=== PATIENT | female | born 1950 | race Caucasian/White ===

== ENCOUNTER 2017-07-20 05:23 | Inpatient (IN) ==
--- NOTE | 2017-07-20 05:47 | Emergency Department Note ---
Disposition Clinical Impression: Generalized weakness Fall Qualifiers: Encounter type: initial encounter Qualified Code(s): W19.XXXA - Unspecified fall, initial encounter Disposition: Still a Patient Condition: Fair Referrals: Gregory Wynne MD [Primary Care Provider] - General Adult HPI - General Stated complaint: fall/failure to thrive Time Seen by Provider: 07/20/17 05:41 Source: patient, family, EMS Mode of arrival: EMS Limitations: no limitations Nursing Notes Reviewed: Yes Vital Signs Reviewed: Yes - History of Present Illness HPI Narrative: 67-year-old female morbidly obese, hypertension, diabetes presents to the emergency department via EMS for generalized weakness. This evening patient with assistance of her was able to get up from bed and walked to her bedside commode roughly 4 feet away. When she attempted to get up she felt to week. Require the help of her and her daughter but was unable to get up. EMS was called for assistance. Attempting to transfer her to the EMS cot patient did fall lady on her knees. She is complaining of right knee pain. She also has a left shoulder pain they were helping to lift her up. She has a history of a left total knee replacement. Patient had a similar episode last night but was finally able to get up. Also of note she has had multiple episodes where they have had to called her neighbor to come help her get up for her wheelchair to a bed. Patient gets home health aide Monday and Monday. Family is requesting for assistance. Family is open to retirement facility. Patient has no other complaints such as headache, fever, illness, chest pain or shortness of breath. She did not striker had or have any neck pain. No loss of consciousness. - Related Data Home Medications Medication Instructions Recorded Confirmed Amitriptyline HCl 75 mg PO HS 10/07/16 10/07/16 Docusate [Colace] 100 mg PO DAILY 10/07/16 10/07/16 Furosemide [Lasix] 80 mg PO DAILY 10/07/16 10/07/16 Gabapentin [Neurontin] 800 mg PO TID 10/07/16 10/07/16 Glucosamine/D3/Boswellia Megan 1 each PO BID 10/07/16 10/07/16 [Osteo Bi-Flex Tablet] Insulin LISPRO [Humalog] 100 unit SQ AD 10/07/16 10/07/16 Levothyroxine Sodium [Synthroid] 300 mcg PO DAILY 10/07/16 10/07/16 Lisinopril [Zestril] 20 mg PO DAILY 10/07/16 10/07/16 Loratadine [Claritin] 10 mg PO DAILY 10/07/16 10/07/16 Mometasone Furoate [Elocon] 15 gm TP DAILY 10/07/16 10/07/16 Nystatin POWDER [Nystop] 1 appl TP BID 10/07/16 10/07/16 OxyCODONE/APAP 10/325 [Percocet 1 each PO Q6HR PRN 10/07/16 10/07/16 10/325 MG] Pravastatin Sodium [Pravachol] 40 mg PO HS 10/07/16 10/07/16 Sertraline [Zoloft] 100 mg PO BID 10/07/16 10/07/16 Spironolactone [Aldactone] 25 mg PO DAILY 10/07/16 10/07/16 Sucralfate [Carafate] 1 gm PO 0730,1630 10/07/16 10/07/16 Vitamin D3/Folic Acid [Folixapure 5,000 unit PO DAILY 10/07/16 10/07/16 Tablet] Allergies Allergy/AdvReac Type Severity Reaction Status Date / Time adhesive tape AdvReac Rash Verified 10/07/16 14:10 atropine AdvReac Rash Verified 10/07/16 14:10 bacitracin AdvReac Rash Verified 10/07/16 14:10 benazepril AdvReac Rash Verified 10/07/16 14:10 diphenhydramine AdvReac Rash Verified 10/07/16 14:10 [From Benadryl] Erythromycin Base AdvReac Rash Verified 10/07/16 14:10 hydrogen peroxide AdvReac Rash Verified 10/07/16 14:10 Hyoscyamine AdvReac Rash Verified 10/07/16 14:10 Macrolide Antibiotics AdvReac Rash Verified 10/07/16 14:10 Metaxalone AdvReac Rash Verified 10/07/16 14:10 mold AdvReac Rash Verified 10/07/16 14:10 phenobarbital AdvReac Rash Verified 10/07/16 14:10 scopolamine AdvReac Rash Verified 10/07/16 14:10 All systems ED: reviewed and negative except as stated. Review of Systems: As Per HPI Constitutional: Reports: weakness. Denies: fever, chills ENT ED: Denies: congestion Cardiovascular: Denies: chest pain Respiratory: Denies: cough, dyspnea Gastrointestinal: Denies: abdominal pain, nausea, vomiting Musculoskeletal: Reports: arthralgia Integumentary: Denies: rash, abrasion Neurological: Denies: headache Past Medical History - Past Medical History Attestation: Yes The following information was validated with the patient. 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 - Social History Smoking Status: Former smoker Smokeless Tobacco Status: No Alcohol use: Reports: rarely Drug use: Reports: none Physical Exam - General Limitations: no limitations General appearance: alert, in no apparent distress, obese (Morbidly) - Head Head exam: atraumatic, normocephalic, normal inspection - Eye Eye exam: Present: normal appearance, PERRL, EOMI - ENT ENT exam: normal exam, normal oropharynx, mucous membranes moist - Expanded ENT Exam External ear exam: Present: normal external inspection Mouth exam: Present: normal external inspection Teeth exam: Present: other (Poor dentition, absent front lower teeth) - Neck Neck exam: Present: normal inspection, full ROM, trachea midline. Absent: tenderness - Expanded Neck Exam Neck exam focused ED: Absent: midline tenderness - Chest Chest inspection: Present: normal inspection, symmetric chest wall rise - Respiratory Respiratory exam: Present: normal lung sounds bilaterally. Absent: respiratory distress, wheezes - Cardiovascular Cardiovascular exam: Present: regular rate, normal rhythm, normal heart sounds - Abdominal Exam Abdominal exam: Present: soft (Obese), Non-Tender. Absent: tenderness, distention, guarding, rebound, rigidity - Expanded Upper Extremity Exam Shoulder exam: Present: normal inspection, full ROM, tenderness (Left shoulder) . Absent: swelling, crepitus, dislocation Arm exam: Present: normal inspection, full ROM Elbow exam: Present: normal inspection, full ROM Forearm/Wrist exam: Present: normal inspection, full ROM Hand exam: Present: normal inspection, full ROM - Expanded Lower Extremity Exam Knee exam: Present: tenderness (Right knee), knee extension intact, other (Left knee scar). Absent: swelling, abrasion, deformity, crepitus, dislocation - Neurological Exam Neurological exam: Present: alert, oriented X3 - Psychiatric Psychiatric exam: Present: normal affect, normal mood - Skin Skin exam: Present: warm, dry, intact, normal color. Absent: rash, cyanosis, diaphoresis Course Course Narrative: Patient is in no acute distress. She has some pain with active range of motion to her right knee. She has underlying arthritis and is awaiting replacement. She has no specific complaints. She will likely require admission for possible placement as well as a social consult. Labs are pending. Images have been taken. Patient had a straight catheterization for urinalysis. Those results are pending. Patient will be signed out to daytime physicians Dr. Bentley and Dr. Wen for further management and final disposition. Vital Signs Temperature 98.3 F 07/20/17 05:47 Pulse Rate 109 07/20/17 05:47 Respiratory Rate 18 07/20/17 05:47 Blood Pressure 111/105 07/20/17 05:47 O2 Sat by Pulse Oximetry 91 07/20/17 05:47 Temperature 98.3 F 07/20/17 05:47 Pulse Rate 109 07/20/17 05:47 Respiratory Rate 18 07/20/17 05:47 Blood Pressure 111/105 07/20/17 05:47 O2 Sat by Pulse Oximetry 91 07/20/17 05:47 Oxygen Delivery Oxygen Delivery Nasal Cannula Medical Decision Making - Medical Records Medical records reviewed: Yes I reviewed the patient's medical records. - EKG Data EKG #1 EKG attestation: Yes I reviewed and interpreted this EKG. EKG results narrative: Sinus tachycardia, heart rate 107, low QRS voltage in precordial leads, no acute ST segment elevation or depression, no ectopy. MS interval 174. QRS duration 85. S.B.A.R. - S.B.A.R. Situation: Demographics, MOA Background: Presenting Complaint, Relevant PMH, Meds, & Allergies Assessment: Vital Signs, Course and respsone to treatment, Exam Concerns, Patient/Family Expectation, Pertinant Lab Results, Outstanding Labs Recommendation: Barrier(s) to disposition, Recommendation based on pending studies, treatments, or consults S.B.A.R. Report Given to: Drs. Bentley and Behzad Lomas Repor Time: 06:27
[2017-07-20 06:22] LABS: Bilirubin,Urine Small (Negative); Blood,Urine Small (Negative); Clarity,Urine Turbid (Clear); Color,Urine Yellow (Yellow); Glucose,Urine (UA) Normal (Normal); Ketones,Urine Trace mg/dL (Negative); Leukocyte Esterase,Urine Large (Negative); Nitrite,Urine Negative (Negative); Protein,Urine Negative (Neg-Trace); Specific Gravity,Urine 1.021 (1.010-1.025); Urobilinogen,Urine Normal (Normal)
[2017-07-20 06:24] LABS: Bacteria,Urine Many per hpf (None-Few); Squamous Epithelial Cell,Urine Many per lpf (None-Few); WBC,Urine TNTC per hpf (0-3)
--- NOTE | 2017-07-20 06:28 | Emergency Department Note ---
Disposition Clinical Impression: Generalized weakness Fall Qualifiers: Encounter type: initial encounter Qualified Code(s): W19.XXXA - Unspecified fall, initial encounter Left shoulder strain Qualifiers: Encounter type: initial encounter Qualified Code(s): S46.912A - Strain of unspecified muscle, fascia and tendon at shoulder and upper arm level, left arm , initial encounter Right knee pain Qualifiers: Chronicity: unspecified Qualified Code(s): M25.561 - Pain in right knee Disposition: Still a Patient Condition: Fair Referrals: Gregory Wynne MD [Primary Care Provider] - General Adult HPI - General Chief complaint: ED Fall Stated complaint: fall/failure to thrive Time Seen by Provider: 07/20/17 05:41 Source: patient, family, EMS Mode of arrival: EMS Limitations: no limitations Nursing Notes Reviewed: Yes Vital Signs Reviewed: Yes - History of Present Illness Pain Scale: 7 - Related Data Home Medications Medication Instructions Recorded Confirmed Amitriptyline HCl 75 mg PO HS 10/07/16 10/07/16 Docusate [Colace] 100 mg PO DAILY 10/07/16 10/07/16 Furosemide [Lasix] 80 mg PO DAILY 10/07/16 10/07/16 Gabapentin [Neurontin] 800 mg PO TID 10/07/16 10/07/16 Glucosamine/D3/Boswellia Megan 1 each PO BID 10/07/16 10/07/16 [Osteo Bi-Flex Tablet] Insulin LISPRO [Humalog] 100 unit SQ AD 10/07/16 10/07/16 Levothyroxine Sodium [Synthroid] 300 mcg PO DAILY 10/07/16 10/07/16 Lisinopril [Zestril] 20 mg PO DAILY 10/07/16 10/07/16 Loratadine [Claritin] 10 mg PO DAILY 10/07/16 10/07/16 Mometasone Furoate [Elocon] 15 gm TP DAILY 10/07/16 10/07/16 Nystatin POWDER [Nystop] 1 appl TP BID 10/07/16 10/07/16 OxyCODONE/APAP 10/325 [Percocet 1 each PO Q6HR PRN 10/07/16 10/07/16 10/325 MG] Pravastatin Sodium [Pravachol] 40 mg PO HS 10/07/16 10/07/16 Sertraline [Zoloft] 100 mg PO BID 10/07/16 10/07/16 Spironolactone [Aldactone] 25 mg PO DAILY 10/07/16 10/07/16 Sucralfate [Carafate] 1 gm PO 0730,1630 10/07/16 10/07/16 Vitamin D3/Folic Acid [Folixapure 5,000 unit PO DAILY 10/07/16 10/07/16 Tablet] Allergies Allergy/AdvReac Type Severity Reaction Status Date / Time adhesive tape AdvReac Rash Verified 10/07/16 14:10 atropine AdvReac Rash Verified 10/07/16 14:10 bacitracin AdvReac Rash Verified 10/07/16 14:10 benazepril AdvReac Rash Verified 10/07/16 14:10 diphenhydramine AdvReac Rash Verified 10/07/16 14:10 [From Benadryl] Erythromycin Base AdvReac Rash Verified 10/07/16 14:10 hydrogen peroxide AdvReac Rash Verified 10/07/16 14:10 Hyoscyamine AdvReac Rash Verified 10/07/16 14:10 Macrolide Antibiotics AdvReac Rash Verified 10/07/16 14:10 Metaxalone AdvReac Rash Verified 10/07/16 14:10 mold AdvReac Rash Verified 10/07/16 14:10 phenobarbital AdvReac Rash Verified 10/07/16 14:10 scopolamine AdvReac Rash Verified 10/07/16 14:10 Constitutional: Reports: weakness. 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 - Social History Smoking Status: Former smoker Smokeless Tobacco Status: No Alcohol use: Reports: rarely Drug use: Reports: none Physical Exam - General Limitations: no limitations General appearance: alert, in no apparent distress, obese (Morbidly) Course Vital Signs Temperature 98.3 F 07/20/17 05:47 Pulse Rate 109 07/20/17 05:47 Respiratory Rate 18 07/20/17 05:47 Blood Pressure 111/105 07/20/17 05:47 O2 Sat by Pulse Oximetry 91 07/20/17 05:47 Temperature 98.3 F 07/20/17 05:47 Pulse Rate 109 07/20/17 05:47 Respiratory Rate 18 07/20/17 05:47 Blood Pressure 111/105 07/20/17 05:47 O2 Sat by Pulse Oximetry 91 07/20/17 05:47 Oxygen Delivery Oxygen Delivery Nasal Cannula Attestation Statement - Attestation Attestation: I, Morris Barry MD, personally evaluated this patient and discussed their management with the resident physician. I reviewed the resident's note and agree with the documented findings, medical decision making, and plan of care. 67-year-old female presents to the emergency department by ambulance with a complaint of generalized weakness and unable to ambulate. Patient is morbidly obese. Family reports that yesterday she was unable to get up out of her chair and they had called neighbors to help get her up and ambulated her to the bed. This morning her was able to help her ambulate to the bedside commode then she was too weak to even get up off the bed side commode. They called 911 and EMS was attempting to help her off of the bedside commode when they stood her upper legs were so weak that she fell to her knees. She did not hit her head. She complains of pain in her right knee. She complains of pain in her left shoulder from where they were lifting on her get her up. She has no other specific complaints. She has not been ill recently. There has been no fever. No increased cough or shortness of breath. No chest pain or palpitations. No dizziness or syncope. No abdominal pain. No vomiting or diarrhea. On examination patient is a well-developed morbidly obese elderly female in no acute distress. She is alert and oriented 3. There is no cyanosis or diaphoresis. He asked is nontender to palpation. Breath sounds are clear and equal bilaterally. Heart regular rate and rhythm. Abdomen is soft and nontender with normal bowel sounds. There is some mild tenderness palpation over the anterior right knee. No obvious bruising or abrasion. No redness or swelling. Range of motion is limited secondary to pain. There is also some mild tenderness over the left shoulder region with no bruising or swelling or redness or deformity. X-rays of the left shoulder and right knee were ordered. Workup for generalized weakness initiated. At shift change patient is being signed out to the oncoming dayshift team, Dr. Wen and Dr. Bentley.
[2017-07-20 07:08] LABS: Basophils % 0.3 %; Eosinophils % 0.2 %; Hematocrit 38.3 % (35.3-44.9); Hemoglobin 13.1 g/dL (11.5-15.4); Immature Granulocytes % 0.5 % (0-4); Lymphocytes # 1.1 K/mcL (0.6-4.6); Lymphocytes % 8.8 %; Mean Corpuscular HGB Conc 34.2 g/dL (31.6-35.5); Mean Corpuscular Hemoglobin 32.4 pg (28.0-33.3); Mean Corpuscular Volume 94.8 fL (83.0-100.0); Mean Platelet Volume 9.2 fL (9.4-12.4); Monocytes # 0.6 K/mcL (0.0-1.3); Monocytes % 5.2 %; Neutrophils # 10.4 K/mcL (1.6-8.9); Platelet Count 180 K/mcL (140-400); Red Blood Count 4.04 M/mcL (3.82-4.97); Red Cell Distribution Width 13.4 % (11.5-14.5)
[2017-07-20 07:39] LABS: Alanine Aminotransferase 16 Units/L (7-52); Albumin 3.7 g/dL (3.5-5.7); Albumin/Globulin Ratio 1.1 (1.1-2.2); Alkaline Phosphatase 126 Units/L (34-104); Aspartate Amino Transferase 22 Units/L (13-39); BUN/Creatinine Ratio 13 (6-26); Bilirubin,Total 0.7 mg/dL (0.3-1.0); Blood Urea Nitrogen 26 mg/dL (8-23); Calcium 8.9 mg/dL (8.6-10.3); Carbon Dioxide 24 mEq/L (23-29); Chloride 103 mEq/L (98-107); Globulin 3.3 g/dL (2.4-3.5); Glucose 218 mg/dL (70-105); Osmolality,Calculated 291 (280-300); Potassium 5.2 mEq/L (3.5-5.1); Sodium 135 mEq/L (136-145); Troponin I < 0.03 ng/mL (< 0.04); eGFR For African Americans 29 (> 60); eGFR For Non-African Americans 24 (> 60)
[2017-07-20] MEDS ORDERED: cefTRIAXone 1,000 MG in Water for inj. (sterile) 20 ML 10 ML IVP ONE ×2 (08:00→08:59)
[2017-07-20] MEDS ORDERED: 0.9 % Sodium Chloride 1,000 ML IVC ONE ×2 (08:00→09:02)
--- NOTE | 2017-07-20 08:08 | Emergency Department Note ---
Disposition Clinical Impression: Generalized weakness Fall Qualifiers: Encounter type: initial encounter Qualified Code(s): W19.XXXA - Unspecified fall, initial encounter UTI (urinary tract infection) Qualifiers: Urinary tract infection type: site unspecified Hematuria presence: with hematuria Qualified Code(s): N39.0 - Urinary tract infection, site not specified ; R31.9 - Hematuria, unspecified; R31.9 - Hematuria, unspecified Disposition: Admitted As Inpatient Condition: Fair Time of Disposition: 09:08 Fall HPI - General Chief Complaint: ED Fall Stated Complaint: fall/failure to thrive Time Seen by Provider: 07/20/17 05:41 Source: patient, family, EMS Mode of arrival: EMS Nursing Notes Reviewed: Yes Vital Signs Reviewed: Yes - History of Present Illness HPI Narrative: Patient was seen and assessed previously by Dr. Bueno EM resident and Dr. Barry EMS attending who initiated patient's workup labs but were not completed by the time their shift ended. Patient is a 67-year-old female was brought in on the prior overnight shift for evaluation of weakness. Patient states he has had increasing weakness over the past 2 days. Patient was unable to get off the toilet today and fell onto the ground injuring her right knee and posterior left shoulder. Patient is normally able to move under her own strength. Patient denies any chest pain or unilateral weakness, fevers , chills, shortness of breath, abdominal pain. Patient is a history of diabetes and hypertension - Related Data Home Medications Medication Instructions Recorded Confirmed Amitriptyline HCl 75 mg PO HS 10/07/16 07/20/17 Docusate [Colace] 100 mg PO DAILY 10/07/16 07/20/17 Furosemide [Lasix] 80 mg PO DAILY 10/07/16 07/20/17 Gabapentin [Neurontin] 800 mg PO TID 10/07/16 07/20/17 Insulin LISPRO [Humalog] 0 unit SQ AD 10/07/16 07/20/17 Levothyroxine Sodium [Synthroid] 300 mcg PO DAILY 10/07/16 07/20/17 Lisinopril [Zestril] 20 mg PO DAILY 10/07/16 07/20/17 Loratadine [Claritin] 10 mg PO DAILY 10/07/16 07/20/17 Nystatin POWDER [Nystop] 1 appl TP BID 10/07/16 07/20/17 OxyCODONE/APAP 10/325 [Percocet 1 tab PO Q6HR PRN 10/07/16 07/20/17 10/325 MG] Pravastatin Sodium [Pravachol] 40 mg PO HS 10/07/16 07/20/17 Sertraline [Zoloft] 100 mg PO BID 10/07/16 07/20/17 Spironolactone [Aldactone] 25 mg PO DAILY 10/07/16 07/20/17 Sucralfate [Carafate] 1 gm PO 0730,1630 10/07/16 07/20/17 Vitamin D3/Folic Acid [Folixapure 5,000 unit PO DAILY 10/07/16 07/20/17 Tablet] Allergies Allergy/AdvReac Type Severity Reaction Status Date / Time adhesive tape AdvReac Rash Verified 07/20/17 08:53 atropine AdvReac Rash Verified 07/20/17 08:53 bacitracin AdvReac Rash Verified 07/20/17 08:53 benazepril AdvReac Rash Verified 07/20/17 08:53 diphenhydramine AdvReac Rash Verified 07/20/17 08:53 [From Benadryl] Erythromycin Base AdvReac Rash Verified 07/20/17 08:53 hydrogen peroxide AdvReac Rash Verified 07/20/17 08:53 Hyoscyamine AdvReac Rash Verified 07/20/17 08:53 Macrolide Antibiotics AdvReac Rash Verified 07/20/17 08:53 Metaxalone AdvReac Rash Verified 07/20/17 08:53 mold AdvReac Rash Verified 07/20/17 08:53 phenobarbital AdvReac Rash Verified 07/20/17 08:53 scopolamine AdvReac Rash Verified 07/20/17 08:53 All systems ED: reviewed and negative except as stated. Review of Systems: As Per HPI Constitutional: Reports: weakness. Denies: fever, chills ENT ED: Denies: congestion Cardiovascular: Denies: chest pain Respiratory: Denies: cough, dyspnea Gastrointestinal: Denies: abdominal pain, nausea, vomiting Musculoskeletal: Reports: arthralgia Integumentary: Denies: rash, abrasion Neurological: Denies: headache Fall PMH - Past Medical History Medical history: Reports: arthritis, CHF, DVT, diabetes, GERD, hyperlipidemia, renal disease, thyroid disease, other Surgical history: Reports: appendectomy, cholecystectomy Psychiatric history: Reports: depression [employer] history: Reports: bilateral tubal ligation - Social History Smoking Status: Former smoker Alcohol use: Reports: rarely Drug use: Reports: none Physical Exam Vital Signs Temperature 98.3 F 07/20/17 05:47 Pulse Rate 109 07/20/17 05:47 Respiratory Rate 18 07/20/17 05:47 Blood Pressure 111/105 07/20/17 05:47 O2 Sat by Pulse Oximetry 91 07/20/17 05:47 Temperature 98.3 F 07/20/17 05:47 Pulse Rate 109 07/20/17 05:47 Respiratory Rate 18 07/20/17 05:47 Blood Pressure 111/105 07/20/17 05:47 O2 Sat by Pulse Oximetry 07/20/17 05:47 Oxygen Delivery Oxygen Delivery Nasal Cannula CONSTITUTIONAL: Well-appearing; well-nourished; A&O X 3, in no apparent distress, patient is morbidly obese with a BMI of 70.5. And is currently unable to move under her own weight or bear weight onto her arms. HEAD: Normocephalic; atraumatic EYES: PERRL, no scleral icterus NOSE: The nose is normal in appearance without rhinorrhea NECK: No JVD or distended neck veins RESP: Normal chest excursion with respiration; breath sounds clear and equal bilaterally; no wheezes, rhonchi, or rales CARD: Regular rhythm, without murmurs, rub or gallop ABD: Non-distended; non-tender, soft, without rigidity, rebound or guarding,no pulsatile mass CHEST: No pain with palpation SKIN: Normal for age and race; warm and dry without diaphoresis ; no apparent lesions EXTREMITIES: Pulses are 2 plus and equal times 4 extremities, no peripheral edema or calf muscle pain. Right knee tender to palpation no signs of ecchymosis. Left shoulder tender to palpation no sign of deformity - General Limitations: no limitations General appearance: alert, in no apparent distress, obese (Morbidly) Course - Reevaluation(s) Time: 09:00 - Consultations Time: 08:26 Vital Signs Temperature 98.3 F 07/20/17 05:47 Pulse Rate 109 07/20/17 05:47 Respiratory Rate 18 04/12/18 05:47 Blood Pressure 111/105 07/20/17 05:47 O2 Sat by Pulse Oximetry 91 07/20/17 05:47 Temperature 98.3 F 07/20/17 05:47 Pulse Rate 101 07/20/17 10:15 Respiratory Rate 20 07/20/17 10:15 Blood Pressure 122/92 07/20/17 10:15 O2 Sat by Pulse Oximetry 96 07/20/17 10:15 Oxygen Delivery Oxygen Delivery Room Air Fall - [facility] Narrative Medical decision making narrative: Patient with weakness no focal neurologic deficits. Patient's GCS of 15, did not hit her head. Weakness is generalized. Symptoms started 2 days ago. I reevaluated the patient and did not find any focal neurologic deficits or any changes from previous discussion about patient's symptoms. Patient has a UTI, acute kidney injury, mild hyperkalemia, elevated alkaline phosphatase, but is afebrile. Patient is still tachycardic and does meet SIRS criteria. She does not appear toxic but she is high risk and sore lactic acid has been ordered. If it comes back elevated classified patient has sepsis and treat accordingly. Patient's x-rays of her chest, and right knee were negative for any fractures. The radiologist comments that if patient has point tenderness along the spine of the scapula she may have a fracture. Patient has no point tenderness along the spine of her scapula none along superior edge of the scalp. But closer to the patient's shoulder patient does have seemed to have a lot of tenderness to palpation along lateral upper side of the plate. If patient has a scapular fracture, she will need pain control but otherwise there is no orthopedic consult required. Patient does not have any other fracture seen on x-ray of her clavicles or ribs. Current plan is for admission. Patient started on 2 g of Rocephin IV, IV fluids 2 L have been ordered. Patient has already received 1 of the 2. 100 g fentanyl for pain. Patient understands and agrees to treatment and plan for admission. Dr. Morales the hospitalist has accepted patient for admission. Patient currently is in stable condition. He has been updated on treatment tract for the patient. - Lab Data Lab results reviewed: Yes I reviewed the patient's lab results. Lab results narrative: Short CBC 07/20/17 Range/Units 06:58 WBC 12.2 H (4.3-11.1) K/mcL Hgb 13.1 (11.5-15.4) g/dL Hct 38.3 (35.3-44.9) % Plt Count 180 (140-400) K/mcL Neutrophils # 10.4 H (1.6-8.9) K/mcL BMP 07/20/17 Range/Units 06:58 Sodium 135 L (136-145) mEq/L Potassium 5.2 H (3.5-5.1) mEq/L Chloride 103 (98-107) mEq/L Carbon Dioxide 24 (23-29) mEq/L BUN 26 H (8-23) mg/dL Creatinine 2.05 H (0.60-1.20) mg/dL Glucose 218 H (70-105) mg/dL Calcium 8.9 (8.6-10.3) mg/dL Cardiac Enzymes 07/20/17 Range/Units 06:58 Troponin I < 0.03 (< 0.04) ng/mL Liver Function 07/20/17 Range/Units 06:58 Total Bilirubin 0.7 (0.3-1.0) mg/dL AST 22 (13-39) Units/L ALT 16 (7-52) Units/L Alkaline Phosphatase 126 H (34-104) Units/L Albumin 3.7 (3.5-5.7) g/dL Urine 07/20/17 Range/Units 06:04 Urine Color Yellow (Yellow) Urine Clarity Turbid A (Clear) Urine pH 5.0 (5.0-8.0) pH Units Ur Specific [place] 1.021 (1.010-1.025) Urine Protein Negative (Neg-Trace) mg/dL Urine Glucose (UA) Normal (Normal) mg/dL Result diagrams: 07/20/17 06:58 07/20/17 06:58 Lab Results 07/20/17 07/20/17 07/20/17 Range/Units 06:04 06:58 06:58 WBC 12.2 H (4.3-11.1) K/mcL RBC 4.04 (3.82-4.97) M/mcL Hgb 13.1 (11.5-15.4) g/dL Hct 38.3 (35.3-44.9) % MCV 94.8 (83.0-100.0) fL MCH 32.4 (28.0-33.3) pg MCHC 34.2 (31.6-35.5) g/dL RDW 13.4 (11.5-14.5) % Plt Count 180 (140-400) K/mcL MPV 9.2 L (9.4-12.4) fL Immature Gran % 0.5 (0-4) % Seg Neutrophils % 85.0 % Lymphocytes % 8.8 % Monocytes % 5.2 % Eosinophils % 0.2 % Basophils % 0.3 % Neutrophils # 10.4 H (1.6-8.9) K/mcL Lymphocytes # 1.1 (0.6-4.6) K/mcL Monocytes # 0.6 (0.0-1.3) K/mcL Eosinophils # 0.0 (0.0-0.6) K/mcL Basophils # 0.0 (0.0-0.2) K/mcL Sodium 135 L (136-145) mEq/L Potassium 5.2 H (3.5-5.1) mEq/L Chloride 103 (98-107) mEq/L Carbon Dioxide 24 (23-29) mEq/L BUN 26 H (8-23) mg/dL Creatinine 2.05 H (0.60-1.20) mg/dL Est GFR ( Amer) 29 L (> 60) Est GFR (Non-Af Amer) 24 L (> 60) BUN/Creatinine Ratio 13 (6-26) Glucose 218 H (70-105) mg/dL Calculated Osmolality 291 (280-300) Lactic Acid (0.5-2.2) mmol/L Calcium 8.9 (8.6-10.3) mg/dL Total Bilirubin 0.7 (0.3-1.0) mg/dL AST 22 (13-39) Units/L ALT 16 (7-52) Units/L Alkaline Phosphatase 126 H (34-104) Units/L Troponin I < 0.03 (< 0.04) ng/mL Serum Total Protein 7.0 (6.4-8.9) g/dL Albumin 3.7 (3.5-5.7) g/dL Globulin 3.3 (2.4-3.5) g/dL Albumin/Globulin Ratio 1.1 (1.1-2.2) Urine Color Yellow (Yellow) Urine Clarity Turbid A (Clear) Urine pH 5.0 (5.0-8.0) pH Units Ur Specific [place] 1.021 (1.010-1.025) Urine Protein Negative (Neg-Trace) mg/dL Urine Glucose (UA) Normal (Normal) mg/dL Urine Ketones Trace H (Negative) mg/dL Urine Blood Small H (Negative) Urine Nitrite Negative (Negative) Urine Bilirubin Small H (Negative) Urine Urobilinogen Normal (Normal) mg/dL Ur Leukocyte Esterase Large H (Negative) Urine Microscopic RBC 5-15 H (0-3) per hpf Urine Microscopic WBC TNTC H (0-3) per hpf Ur Squamous Epith Cells Many H (None-Few) per lpf Urine Bacteria Many H (None-Few) per hpf Ur Culture Indicated? NO. (NO) 07/20/17 Range/Units 09:20 WBC (4.3-11.1) K/mcL RBC (3.82-4.97) M/mcL Hgb (11.5-15.4) g/dL Hct (35.3-44.9) % MCV (83.0-100.0) fL MCH (28.0-33.3) pg MCHC (31.6-35.5) g/dL RDW (11.5-14.5) % Plt Count (140-400) K/mcL MPV (9.4-12.4) fL Immature Gran % (0-4) % Seg Neutrophils % % Lymphocytes % % Monocytes % % Eosinophils % % Basophils % % Neutrophils # (1.6-8.9) K/mcL Lymphocytes # (0.6-4.6) K/mcL Monocytes # (0.0-1.3) K/mcL Eosinophils # (0.0-0.6) K/mcL Basophils # (0.0-0.2) K/mcL Sodium (136-145) mEq/L Potassium (3.5-5.1) mEq/L Chloride (98-107) mEq/L Carbon Dioxide (23-29) mEq/L BUN (8-23) mg/dL Creatinine (0.60-1.20) mg/dL Est GFR ( Amer) (> 60) Est GFR (Non-Af Amer) (> 60) BUN/Creatinine Ratio (6-26) Glucose (70-105) mg/dL Calculated Osmolality (280-300) Lactic Acid 1.7 (0.5-2.2) mmol/L Calcium (8.6-10.3) mg/dL Total Bilirubin (0.3-1.0) mg/dL AST (13-39) Units/L ALT (7-52) Units/L Alkaline Phosphatase (34-104) Units/L Troponin I (< 0.04) ng/mL Serum Total Protein (6.4-8.9) g/dL Albumin (3.5-5.7) g/dL Globulin (2.4-3.5) g/dL Albumin/Globulin Ratio (1.1-2.2) Urine Color (Yellow) Urine Clarity (Clear) Urine pH (5.0-8.0) pH Units Ur Specific [place] (1.010-1.025) Urine Protein (Neg-Trace) mg/dL Urine Glucose (UA) (Normal) mg/dL Urine Ketones (Negative) mg/dL Urine Blood (Negative) Urine Nitrite (Negative) Urine Bilirubin (Negative) Urine Urobilinogen (Normal) mg/dL Ur Leukocyte Esterase (Negative) Urine Microscopic RBC (0-3) per hpf Urine Microscopic WBC (0-3) per hpf Ur Squamous Epith Cells (None-Few) per lpf Urine Bacteria (None-Few) per hpf Ur Culture Indicated? (NO) - Radiology Data Radiology results reviewed: Yes I reviewed the patient's radiology results. Chest X-Ray 07/20/17 05:41 IMPRESSION: 1. No active pulmonary disease. D/ / Eren Melchor MD / Eren Melchor MD Interpreting Provider: Eren Melchor MD Knee X-Ray 07/20/17 05:42 IMPRESSION: No acute osseous abnormality. Severe tricompartmental osteoarthrosis. D/ / Carmine Ignacio / Carmine Ignacio Interpreting Provider: Carmine Ignacio Shoulder X-Ray 07/20/17 05:42 IMPRESSION: Scapular contour irregularity on Y-view may artifactual or concavity relating to the spine of the scapula however could potentially represent a fracture. If there is point tenderness along the scapula, recommend further evaluation with cross-sectional imaging. Remainder of the shoulder is intact. D/ / Carmine Ignacio / Carmine Ignacio Interpreting Provider: Carmine Ignacio - EKG Data EKG attestation: Yes I reviewed and interpreted this EKG. EKG results narrative: EKG taken 07/20/2017 at 625 hours shows a sinus tachycardia at a rate of [address] elevations or depressions any leads, no cures Everetts QT prolongation. No old EKG for comparison.
[2017-07-20] MEDS ORDERED: cefTRIAXone 2,000 MG in Water for inj. (sterile) 20 ML 20 ML IVPB ONE (08:52)
[2017-07-20] MEDS ORDERED: *HR* FentaNYL (PF) 100 MCG/2 ML VIAL IVP ONE (09:04)
--- NOTE | 2017-07-20 09:18 | Emergency Department Note ---
Disposition Clinical Impression: Generalized weakness Fall Qualifiers: Encounter type: initial encounter Qualified Code(s): W19.XXXA - Unspecified fall, initial encounter UTI (urinary tract infection) Qualifiers: Urinary tract infection type: site unspecified Disposition: Admitted As Inpatient Condition: Fair Referrals: Gregory Wynne MD [Primary Care Provider] - General Adult HPI - General Chief complaint: ED Fall Stated complaint: fall/failure to thrive Time Seen by Provider: 07/20/17 05:41 Source: patient, family, EMS Mode of arrival: EMS Limitations: no limitations - History of Present Illness Pain Scale: 7 - Related Data Home Medications Medication Instructions Recorded Confirmed Amitriptyline HCl 75 mg PO HS 10/07/16 07/20/17 Docusate [Colace] 100 mg PO DAILY 10/07/16 07/20/17 Furosemide [Lasix] 80 mg PO DAILY 10/07/16 07/20/17 Gabapentin [Neurontin] 800 mg PO TID 10/07/16 07/20/17 Insulin LISPRO [Humalog] 0 unit SQ AD 10/07/16 07/20/17 Levothyroxine Sodium [Synthroid] 300 mcg PO DAILY 10/07/16 07/20/17 Lisinopril [Zestril] 20 mg PO DAILY 10/07/16 07/20/17 Loratadine [Claritin] 10 mg PO DAILY 10/07/16 07/20/17 Nystatin POWDER [Nystop] 1 appl TP BID 10/07/16 07/20/17 OxyCODONE/APAP 10/325 [Percocet 1 tab PO Q6HR PRN 10/07/16 07/20/17 10/325 MG] Pravastatin Sodium [Pravachol] 40 mg PO HS 10/07/16 07/20/17 Sertraline [Zoloft] 100 mg PO BID 10/07/16 07/20/17 Spironolactone [Aldactone] 25 mg PO DAILY 10/07/16 07/20/17 Sucralfate [Carafate] 1 gm PO 0730,1630 10/07/16 07/20/17 Vitamin D3/Folic Acid [Folixapure 5,000 unit PO DAILY 10/07/16 07/20/17 Tablet] Allergies Allergy/AdvReac Type Severity Reaction Status Date / Time adhesive tape AdvReac Rash Verified 07/20/17 08:53 atropine AdvReac Rash Verified 07/20/17 08:53 bacitracin AdvReac Rash Verified 07/20/17 08:53 benazepril AdvReac Rash Verified 07/20/17 08:53 diphenhydramine AdvReac Rash Verified 07/20/17 08:53 [From Benadryl] Erythromycin Base AdvReac Rash Verified 07/20/17 08:53 hydrogen peroxide AdvReac Rash Verified 07/20/17 08:53 Hyoscyamine AdvReac Rash Verified 07/20/17 08:53 Macrolide Antibiotics AdvReac Rash Verified 07/20/17 08:53 Metaxalone AdvReac Rash Verified 07/20/17 08:53 mold AdvReac Rash Verified 07/20/17 08:53 phenobarbital AdvReac Rash Verified 07/20/17 08:53 scopolamine AdvReac Rash Verified 07/20/17 08:53 Constitutional: Reports: weakness. Denies: fever, chills ENT ED: Denies: congestion Cardiovascular: Denies: chest pain Respiratory: Denies: cough, dyspnea Gastrointestinal: Denies: abdominal pain, nausea, vomiting Musculoskeletal: Reports: arthralgia Integumentary: Denies: rash, abrasion Neurological: Denies: headache Past Medical History - Past Medical History Medical history: Reports: arthritis, CHF, DVT, diabetes, GERD, hyperlipidemia, renal disease, thyroid disease, other Surgical history: Reports: appendectomy, cholecystectomy Psychiatric history: Reports: depression [employer] history: Reports: bilateral tubal ligation - Social History Smoking Status: Former smoker Smokeless Tobacco Status: No Alcohol use: Reports: rarely Drug use: Reports: none Physical Exam - General Limitations: no limitations General appearance: alert, in no apparent distress, obese (Morbidly) Course - Reevaluation(s) Reevaluation #1: Attestation note I examined this patient and my medical decision-making was reviewed with the emergency medicine resident. I agree with the documented findings, disposition and treatment plan as described except to the extent set forth below. Patient seen with emergency medicine resident Dr. Morgan Wen, Please see a copy of his note for details of the H&P, ED evaluation, management and disposition. I have independently evaluated the patient and confirmed appropriate portions of the history and physical exam. Briefly: A 67-year-old morbidly obese female brought in by EMS for "too weak to stand. Patient has been too weak to do anything over the past week EMS called to get her up from the commode when they did her legs gave out and she fell injuring her scapula which might have a small fracture. Patient's was worked up in the ED there was no signs of focal infection blood dyscrasia or other lab abnormality. Patient is admitted to the hospitalist service for generalized weakness. Admitted in stable condition Time: 09:17 Vital Signs Temperature 98.3 F 07/20/17 05:47 Pulse Rate 109 07/20/17 05:47 Respiratory Rate 18 07/20/17 05:47 Blood Pressure 111/105 07/20/17 05:47 O2 Sat by Pulse Oximetry 91 07/20/17 05:47 Temperature 98.3 F 07/20/17 05:47 Pulse Rate 109 07/20/17 05:47 Respiratory Rate 18 07/20/17 05:47 Blood Pressure 111/105 07/20/17 05:47 O2 Sat by Pulse Oximetry 91 07/20/17 05:47 Oxygen Delivery Oxygen Delivery Nasal Cannula Medical Decision Making - Lab Data Result diagrams: 07/20/17 06:58 07/20/17 06:58 Lab Results 07/20/17 07/20/17 07/20/17 Range/Units 06:04 06:58 06:58 WBC 12.2 H (4.3-11.1) K/mcL RBC 4.04 (3.82-4.97) M/mcL Hgb 13.1 (11.5-15.4) g/dL Hct 38.3 (35.3-44.9) % MCV 94.8 (83.0-100.0) fL MCH 32.4 (28.0-33.3) pg MCHC 34.2 (31.6-35.5) g/dL RDW 13.4 (11.5-14.5) % Plt Count 180 (140-400) K/mcL MPV 9.2 L (9.4-12.4) fL Immature Gran % 0.5 (0-4) % Seg Neutrophils % 85.0 % Lymphocytes % 8.8 % Monocytes % 5.2 % Eosinophils % 0.2 % Basophils % 0.3 % Neutrophils # 10.4 H (1.6-8.9) K/mcL Lymphocytes # 1.1 (0.6-4.6) K/mcL Monocytes # 0.6 (0.0-1.3) K/mcL Eosinophils # 0.0 (0.0-0.6) K/mcL Basophils # 0.0 (0.0-0.2) K/mcL Sodium 135 L (136-145) mEq/L Potassium 5.2 H (3.5-5.1) mEq/L Chloride 103 (98-107) mEq/L Carbon Dioxide 24 (23-29) mEq/L BUN 26 H (8-23) mg/dL Creatinine 2.05 H (0.60-1.20) mg/dL Est GFR ( Amer) 29 L (> 60) Est GFR (Non-Af Amer) 24 L (> 60) BUN/Creatinine Ratio 13 (6-26) Glucose 218 H (70-105) mg/dL Calculated Osmolality 291 (280-300) Calcium 8.9 (8.6-10.3) mg/dL Total Bilirubin 0.7 (0.3-1.0) mg/dL AST 22 (13-39) Units/L ALT 16 (7-52) Units/L Alkaline Phosphatase 126 H (34-104) Units/L Troponin I < 0.03 (< 0.04) ng/mL Serum Total Protein 7.0 (6.4-8.9) g/dL Albumin 3.7 (3.5-5.7) g/dL Globulin 3.3 (2.4-3.5) g/dL Albumin/Globulin Ratio 1.1 (1.1-2.2) Urine Color Yellow (Yellow) Urine Clarity Turbid A (Clear) Urine pH 5.0 (5.0-8.0) pH Units Ur Specific [place] 1.021 (1.010-1.025) Urine Protein Negative (Neg-Trace) mg/dL Urine Glucose (UA) Normal (Normal) mg/dL Urine Ketones Trace H (Negative) mg/dL Urine Blood Small H (Negative) Urine Nitrite Negative (Negative) Urine Bilirubin Small H (Negative) Urine Urobilinogen Normal (Normal) mg/dL Ur Leukocyte Esterase Large H (Negative) Urine Microscopic RBC 5-15 H (0-3) per hpf Urine Microscopic WBC TNTC H (0-3) per hpf Ur Squamous Epith Cells Many H (None-Few) per lpf Urine Bacteria Many H (None-Few) per hpf Ur Culture Indicated? NO. (NO)
[2017-07-20] MEDS ORDERED: Naloxone 0.4 MG/ML INJ IVP PRN (10:04)
[2017-07-20] MEDS ORDERED: D5% in Water 1,000 ML IVC PRN (10:10)
[2017-07-20] MEDS ORDERED: *HR* Dextrose 50 % in Water (Syg) 50 ML SYRINGE IVP PRN (10:10)
[2017-07-20] MEDS ORDERED: Dextrose Gel 15 GM/37.5 ML TUBE PO PRN ×2 (10:10)
--- NOTE | 2017-07-20 10:19 | Internal Med History&Physical ---
Date of Encounter: 07/20/17 Time of Encounter: 10:14 Internal Medicine - H&P: HPI Chief complaint: I feel weak History of present illness: Ms. Smith is a 67 year old female multiple medical problems history of insulin -dependent diabetes mellitus and complaint of weakness. Patient notes over the last few days she has felt generally weak. Patient complains more malaise. Patient denies headache, visual disturbances, neck pain or focal weakness. She denies substernal chest pain, shortness of breath or palpitations. He denies melena or hematochezia. Patient notes subjective fever but denies chills or rigors. She denies abdominal pain, nausea or vomiting. His denies cough or sputum production. Patient she has severe bilateral osteoarthritis bilateral knees. Patient followed by orthopedics for symptom management. Additional she ambulates at baseline with a walker and has difficulty with ambulation at baseline for the past 3 years. Patient she fell in her fall was mechanical in nature. Patient was some left shoulder pain. She denies any trauma or loss of consciousness. In the emergency Department patient has history Straight catheterization for urine which showed evidence of urinary tract infection. Past Med Surg Social Fam HX - Past Medical History Medical history: arthritis, CHF, DVT, diabetes, GERD, hyperlipidemia, renal disease, thyroid disease, other Psychiatric history: depression - Past Surgical History Surgical History: appendectomy, cholecystectomy - Social History Smoking Status: Former smoker Smokeless Tobacco Status: No Alcohol use: rarely Drug use: none - Family History Mother Living Status: Hx Family Cardiac Disorders: Yes Internal Medicine - H&P: Meds Amitriptyline HCl 75 mg PO HS 10/07/16 [History] Docusate [Colace] 100 mg PO DAILY 10/07/16 [History] Furosemide [Lasix] 80 mg PO DAILY 10/07/16 [History] Gabapentin [Neurontin] 800 mg PO TID 10/07/16 [History] Insulin LISPRO [Humalog] 0 unit SQ AD 10/07/16 [History] Levothyroxine Sodium [Synthroid] 300 mcg PO DAILY 10/07/16 [History] Lisinopril [Zestril] 20 mg PO DAILY 10/07/16 [History] Loratadine [Claritin] 10 mg PO DAILY 10/07/16 [History] Nystatin POWDER [Nystop] 1 appl TP BID 10/07/16 [History] OxyCODONE/APAP 10/325 [Percocet 10/325 MG] 1 tab PO Q6HR PRN 10/07/16 [History] Pravastatin Sodium [Pravachol] 40 mg PO HS 10/07/16 [History] Sertraline [Zoloft] 100 mg PO BID 10/07/16 [History] Spironolactone [Aldactone] 25 mg PO DAILY 10/07/16 [History] Sucralfate [Carafate] 1 gm PO 0730,1630 10/07/16 [History] Vitamin D3/Folic Acid [Folixapure Tablet] 5,000 unit PO DAILY 10/07/16 [History] 3 Allergy/AdvReac Type Severity Reaction Status Date / Time adhesive tape AdvReac Rash Verified 07/20/17 08:53 atropine AdvReac Rash Verified 07/20/17 08:53 bacitracin AdvReac Rash Verified 07/20/17 08:53 benazepril AdvReac Rash Verified 07/20/17 08:53 diphenhydramine AdvReac Rash Verified 07/20/17 08:53 [From Benadryl] Erythromycin Base AdvReac Rash Verified 07/20/17 08:53 hydrogen peroxide AdvReac Rash Verified 07/20/17 08:53 Hyoscyamine AdvReac Rash Verified 07/20/17 08:53 Macrolide Antibiotics AdvReac Rash Verified 07/20/17 08:53 Metaxalone AdvReac Rash Verified 07/20/17 08:53 mold AdvReac Rash Verified 07/20/17 08:53 phenobarbital AdvReac Rash Verified 07/20/17 08:53 scopolamine AdvReac Rash Verified 07/20/17 08:53 All Systems PM: A 10-system review of systems was performed and is negative for pertinent findings except as documented above in the HPI. Review of systems: All systems have been reviewed and negative except as mentioned in history of present illness - Constitutional Vitals: Temp Pulse Resp BP Pulse Ox 98.3 F 109 18 111/105 91 07/20/17 05:47 07/20/17 05:47 07/20/17 05:47 07/20/17 05:47 07/20/17 05:47 Vital signs as above Gen.: Gen: No acute distress, cooperative, able to speak in full sentences HEENT: Atraumatic, normocephalic, joint, there is no scleral icterus Neck: No JVD. Palpation, obese Heart: Normal S1-S2 Lungs: Diminished breath sounds in the bases abdomen: Soft, depressible, obese Musculoskeletal: Patient moves all 4 extremities, decreased range of motion of bilateral knees, currently no signs of overlying cellulitis, some stigmata of osteoarthritis Neuro: Nonfocal, no lateralization, illness are intact, strength appears equal upper and lower extremities, patient has pain with movement of bilateral knees difficult to assess, bilateral peripheral neuropathy Internal Med - H&P Results - Labs CBC & Chem 7: 07/20/17 06:58 07/20/17 18:11 Labs: Short CBC 07/20/17 Range/Units 06:58 WBC 12.2 H (4.3-11.1) K/mcL Hgb 13.1 (11.5-15.4) g/dL Hct 38.3 (35.3-44.9) % Plt Count 180 (140-400) K/mcL Neutrophils # 10.4 H (1.6-8.9) K/mcL BMP 07/20/17 06:58 Sodium 135 L Potassium 5.2 H Chloride 103 Carbon Dioxide 24 BUN 26 H Creatinine 2.05 H Glucose 218 H Calcium 8.9 Cardiac Enzymes 07/20/17 Range/Units 06:58 Troponin I < 0.03 (< 0.04) ng/mL Liver Function 07/20/17 Range/Units 06:58 Total Bilirubin 0.7 (0.3-1.0) mg/dL AST 22 (13-39) Units/L ALT 16 (7-52) Units/L Alkaline Phosphatase 126 H (34-104) Units/L Albumin 3.7 (3.5-5.7) g/dL Urine 07/20/17 Range/Units 06:04 Urine Color Yellow (Yellow) Urine Clarity Turbid A (Clear) Urine pH 5.0 (5.0-8.0) pH Units Ur Specific [place] 1.021 (1.010-1.025) Urine Protein Negative (Neg-Trace) mg/dL Urine Glucose (UA) Normal (Normal) mg/dL - Impressions ITS Impressions Chest X-Ray 07/20/17 05:41 IMPRESSION: 1. No active pulmonary disease. D/ / Eren Melchor MD / Eren Melchor MD Interpreting Provider: Eren Melchor MD Knee X-Ray 07/20/17 05:42 IMPRESSION: No acute osseous abnormality. Severe tricompartmental osteoarthrosis. D/ / Carmine Ignacio / Carmine Ignacio Interpreting Provider: Carmine Ignacio Shoulder X-Ray 07/20/17 05:42 IMPRESSION: Scapular contour irregularity on Y-view may artifactual or concavity relating to the spine of the scapula however could potentially represent a fracture. If there is point tenderness along the scapula, recommend further evaluation with cross-sectional imaging. Remainder of the shoulder is intact. D/ / Carmine Ignacio / Carmine Ignacio Interpreting Provider: Carmine Ignacio - Assessment and plan (1) Sepsis Current Visit: Yes Status: Acute Assessment and plan: Patient with evidence of urinary tract infection. Patient does meet sepsis criteria with leukocytosis, tachycardia At this time patient has history of Escherichia coli urinary tract infection susceptible to Rocephin Empiric Rocephin 2 g every 24 hours, urine culture, blood culture CT abdomen and pelvis to rule out obstruction Strict ins and outs Qualifiers: Qualified Code(s): A41.9 - Sepsis, unspecified organism (2) Obesity Current Visit: Yes Status: Acute Assessment and plan: High risk for decompensation Counseled Qualifiers: Qualified Code(s): E66.9 - Obesity, unspecified (3) Decubitus ulcer Current Visit: Yes Status: Acute Assessment and plan: History of decubitus ulceration Patient approximate 214 kg, with patient on medical floor team members to rotate and assess for any decubitus ulcers Wound care, rotation Qualifiers: Qualified Code(s): L89.90 - Pressure ulcer of unspecified site, unspecified stage (4) BEATRICE (acute kidney injury) Current Visit: Yes Status: Acute Assessment and plan: Acute on chronic CKD Goal-directed fluid resuscitation, strict ins and outs, avoid nephrotoxins, hold diuretics, MAYRA inhibitor for now Check CT abdomen and pelvis rule out obstruction (5) Hyperkalemia Current Visit: Yes Status: Acute Assessment and plan: Mild, likely secondary to acute kidney injury Repeat serum potassium (6) UTI (urinary tract infection) Current Visit: Yes Status: Acute Assessment and plan: History of Escherichia coli urinary tract infection Check CT abdomen and pelvis to rule out obstruction Empiric parenteral antibiotics, urine culture, blood culture Qualifiers: Urinary tract infection type: site unspecified Hematuria presence: with hematuria Qualified Code(s): N39.0 - Urinary tract infection, site not specified; R31.9 - Hematuria, unspecified; R31.9 - Hematuria, unspecified (7) DVT prophylaxis Current Visit: Yes Status: Acute Assessment and plan: SCDs, heparin subcutaneous for DVT prophylaxis - Time Spent With Patient Total time spent is greater than 50% in coordination of care (as documented) at patient's floor/unit and/or counseling patient:
[2017-07-20] MEDS ORDERED: Insulin LISPRO 300 UNITS/3 ML VIAL SQ SCH (12:00)
[2017-07-20] MEDS: Insulin LISPRO 300 UNITS/3 ML VIAL SQ SCH ×2 (16:21→22:38)
[2017-07-20 19:39] LABS: Troponin I < 0.03 ng/mL (< 0.04)
[2017-07-20 20:26] LABS: Alanine Aminotransferase 15 Units/L (7-52); Albumin 2.9 g/dL (3.5-5.7); Alkaline Phosphatase 104 Units/L (34-104); Aspartate Amino Transferase 21 Units/L (13-39); BUN/Creatinine Ratio 15 (6-26); Bilirubin,Total 0.6 mg/dL (0.3-1.0); Blood Urea Nitrogen 24 mg/dL (8-23); Calcium 8.4 mg/dL (8.6-10.3); Carbon Dioxide 23 mEq/L (23-29); Chloride 106 mEq/L (98-107); Glucose 179 mg/dL (70-105); Osmolality,Calculated 293 (280-300); Potassium 4.2 mEq/L (3.5-5.1); Sodium 137 mEq/L (136-145); Total Protein 5.9 g/dL (6.4-8.9); eGFR For African Americans 39 (> 60); eGFR For Non-African Americans 32 (> 60)
[2017-07-20] MEDS: *HR* OxyCODONE/APAP 10/325 TABLET PO PRN (22:02)
[2017-07-20] MEDS: 0.9 % Sodium Chloride 1,000 ML IVC SCH (22:04)
[2017-07-20] MEDS: Nystatin POWDER 30 GM BOTTLE TP SCH (22:40)
[2017-07-21] MEDS: *HR* Heparin 5,000 UNIT/ML VIAL SQ SCH ×4 (00:38→22:10)
[2017-07-21 01:21] LABS: Basophils % 0.4 %; Eosinophils # 0.2 K/mcL (0.0-0.6); Eosinophils % 2.5 %; Hematocrit 34.1 % (35.3-44.9); Hemoglobin 11.8 g/dL (11.5-15.4); Immature Granulocytes % 0.4 % (0-4); Lymphocytes # 2.6 K/mcL (0.6-4.6); Lymphocytes % 27.5 %; Mean Corpuscular HGB Conc 34.6 g/dL (31.6-35.5); Mean Corpuscular Hemoglobin 32.7 pg (28.0-33.3); Mean Corpuscular Volume 94.5 fL (83.0-100.0); Mean Platelet Volume 10.2 fL (9.4-12.4); Monocytes # 0.7 K/mcL (0.0-1.3); Monocytes % 7.3 %; Neutrophils # 5.9 K/mcL (1.6-8.9); Platelet Count 172 K/mcL (140-400); Red Blood Count 3.61 M/mcL (3.82-4.97); Red Cell Distribution Width 13.3 % (11.5-14.5); Segmented Neutrophils % 61.9 %
[2017-07-21 01:26] LABS: INR 1.2; Prothrombin Time 13.4 Seconds (9.4-12.1)
[2017-07-21 01:41] LABS: Bilirubin,Total 0.6 mg/dL (0.3-1.0); Calcium 8.6 mg/dL (8.6-10.3); Chol/HDL Ratio 3.6 (0-4.9); Globulin 2.9 g/dL (2.4-3.5); Magnesium 1.7 mg/dL (1.6-2.6); Potassium 4.2 mEq/L (3.5-5.1); Total Protein 5.9 g/dL (6.4-8.9)
[2017-07-21] MEDS ORDERED: cefTRIAXone 2,000 MG in Water for inj. (sterile) 20 ML 20 ML IVP SCH (09:00)
--- NOTE | 2017-07-21 09:18 | Internal Med Progress Note ---
<Oj Mccormick - Last Filed: 07/21/17 15:17> Date of Encounter: 07/21/17 Time of Encounter: 09:15 - Assessment and plan (1) Generalized weakness Current Visit: Yes Status: Acute Assessment and plan: Generalized weakness most likely multifactorial including UTI, decubitius ulcer , uncontrolled DM and Obesity. History of Escherichia coli urinary tract infection. Currently empiric coverage with ceftriaxone. - Strict I/O - diabetic diet - continuous monitoring of ulcers - consider wound care consult - continue IVF - rocephin 1 gm (2) UTI (urinary tract infection) Current Visit: Yes Status: Acute Assessment and plan: see above Qualifiers: Urinary tract infection type: site unspecified Hematuria presence: with hematuria Qualified Code(s): N39.0 - Urinary tract infection, site not specified (3) Sepsis Current Visit: Yes Status: Acute Assessment and plan: Currently does not meet sepsis criteria. luekocystosis has now resolved Qualifiers: Qualified Code(s): A41.9 - Sepsis, unspecified organism (4) Obesity Current Visit: Yes Status: Acute Assessment and plan: High risk for decompensation Counseled Qualifiers: Qualified Code(s): E66.9 - Obesity, unspecified; Z68.45 - Body mass index ( BMI) 70 or greater, adult; Z68.45 - Body mass index (BMI) 70 or greater, adult; Z68.45 - Body mass index (BMI) 70 or greater, adult; Z68.45 - Body mass index ( BMI) 70 or greater, adult (5) Decubitus ulcer Current Visit: Yes Status: Acute Assessment and plan: see above Qualifiers: Qualified Code(s): L89.90 - Pressure ulcer of unspecified site, unspecified stage (6) BEATRICE (acute kidney injury) Current Visit: Yes Status: Acute Assessment and plan: most likely 2/2 UTI. currently improving with down trending Cr (7) Hyperkalemia Current Visit: Yes Status: Acute Assessment and plan: currently resolved, will continue to monitor (8) DVT prophylaxis Current Visit: Yes Status: Acute Assessment and plan: SCDs, heparin subcutaneous for DVT prophylaxis - Time Spent With Patient Total time spent is greater than 50% in coordination of care (as documented) at patient's floor/unit and/or counseling patient: - Subjective Interval history: Ms Smith is a 67 yo F w/ pmh of DM, hypothyroid, CKD, previous UTI, insulin dependence presents with multiple day hx of weakness. In the ED, she was reported to have met sepsis criteria and U/A was suggestive of UTI. Patient was on the toilet at home and unable to get off. She called squad to help her off the toilet. When they arrived, and assisted she fell and was brought to [place] ED. PT came by today and she declines to participate. Patient denies chest pain, sob, n/v/f/c. - Constitutional Vitals: Temp Pulse Resp BP Pulse Ox 98.4 F 84 18 122/62 98 07/21/17 07:13 07/21/17 07:13 07/21/17 07:13 07/21/17 07:13 07/21/17 07:13 General appearance: Present: A&O X 3, morbidly obese, answers questions appropriately Exam: Patient was malodorous - Head Head exam: Present: normal inspection - Respiratory Respiratory exam: Present: decreased breath sounds, wheezes - Cardiovascular Cardiovascular exam: Present: RRR - GI/Abdominal GI/Abdominal exam: Present: normal bowel sounds - Extremities Exam Extremities exam: Present: joint swelling Internal Medicine: Result - Labs CBC & Chem 7: 07/21/17 00:47 07/21/17 00:47 Labs: Short CBC 07/21/17 Range/Units 00:47 WBC 9.5 (4.3-11.1) K/mcL Hgb 11.8 (11.5-15.4) g/dL Hct 34.1 L (35.3-44.9) % Plt Count 172 (140-400) K/mcL Neutrophils # 5.9 (1.6-8.9) K/mcL BMP 07/20/17 07/21/17 18:11 00:47 Sodium 137 137 Potassium 4.2 4.2 Chloride 106 108 H Carbon Dioxide 23 22 L BUN 24 H 23 Creatinine 1.60 H 1.46 H Glucose 179 H 165 H Calcium 8.4 L 8.6 Cardiac Enzymes 07/20/17 07/20/17 07/21/17 Range/Units 13:00 18:11 00:47 Troponin I < 0.03 < 0.03 < 0.03 (< 0.04) ng/mL Liver Function 07/20/17 07/21/17 Range/Units 18:11 00:47 Total Bilirubin 0.6 0.6 (0.3-1.0) mg/dL AST 21 23 (13-39) Units/L ALT 15 14 (7-52) Units/L Alkaline Phosphatase 104 110 H (34-104) Units/L Albumin 2.9 L 3.0 L (3.5-5.7) g/dL - ABG Interpretation ABG results: PT/INR, D-dimer PT 13.4 Seconds (9.4-12.1) H 07/21/17 00:47 - Impressions Impressions Shoulder CT 07/20/17 10:21 IMPRESSION: No acute osseous abnormality. D/ / Adan Vasquez MD / Adan Vasquez MD Interpreting Provider: Adan Vasquez MD Abdomen/Pelvis CT 07/20/17 10:22 IMPRESSION: Limited study. Haziness about both kidneys possibly related to urinary tract infection. No nephrolithiasis or hydronephrosis is noted. D/ / 07/20/2017 16:58:11 Tania Ballard MD / betsy Interpreting Provider: Tania Ballard MD - VTE Documentation of Mechanical Device: Intermittent pneumatic compression device Consult Discharge Plan - Plan Referrals: Gregory Wynne MD [Primary Care Provider] - <Sumit Arizmendi - Last Filed: 07/21/17 19:06> Date of Encounter: 07/21/17 - Assessment and plan (1) UTI (urinary tract infection) Current Visit: Yes Status: Suspected Qualifiers: Urinary tract infection type: acute cystitis Hematuria presence: with hematuria Qualified Code(s): N30.01 - Acute cystitis with hematuria (2) Generalized weakness Current Visit: Yes Status: Acute (3) Sepsis Current Visit: Yes Status: Resolved Qualifiers: Sepsis type: sepsis due to unspecified organism Qualified Code(s): A41.9 - Sepsis, unspecified organism (4) Obesity Current Visit: Yes Status: Chronic Qualifiers: Obesity type: due to excess calories Obesity classification: adult class 3 (BMI >= 40) Serious obesity comorbidity presence: with serious comorbidity Body mass index: BMI 70 or greater Qualified Code(s): E66.01 - Morbid (severe ) obesity due to excess calories; Z68.45 - Body mass index (BMI) 70 or greater, adult; Z68.45 - Body mass index (BMI) 70 or greater, adult; Z68.45 - Body mass index (BMI) 70 or greater, adult; Z68.45 - Body mass index (BMI) 70 or greater, adult (5) Decubitus ulcer Current Visit: Yes Status: Acute Qualifiers: Pressure ulcer location: lower back Pressure ulcer stage: stage 1 Laterality: left Qualified Code(s): L89.141 - Pressure ulcer of left lower back, stage 1 (6) BEATRICE (acute kidney injury) Current Visit: Yes Status: Acute (7) Hyperkalemia Current Visit: Yes Status: Resolved (8) DVT prophylaxis Current Visit: Yes Status: Acute - Time Spent With Patient Total time spent is greater than 50% in coordination of care (as documented) at patient's floor/unit and/or counseling patient: - Constitutional Vitals: Temp Pulse Resp BP Pulse Ox 97.8 F 88 18 147/65 96 07/21/17 16:00 07/21/17 16:00 07/21/17 16:00 07/21/17 16:00 07/21/17 16:00 Internal Medicine: Result - Labs CBC & Chem 7: 07/21/17 00:47 07/21/17 00:47 Labs: Short CBC 07/21/17 Range/Units 00:47 WBC 9.5 (4.3-11.1) K/mcL Hgb 11.8 (11.5-15.4) g/dL Hct 34.1 L (35.3-44.9) % Plt Count 172 (140-400) K/mcL Neutrophils # 5.9 (1.6-8.9) K/mcL BMP 07/20/17 07/21/17 18:11 00:47 Sodium 137 137 Potassium 4.2 4.2 Chloride 106 108 H Carbon Dioxide 23 22 L BUN 24 H 23 Creatinine 1.60 H 1.46 H Glucose 179 H 165 H Calcium 8.4 L 8.6 Cardiac Enzymes 07/20/17 07/21/17 Range/Units 18:11 00:47 Troponin I < 0.03 < 0.03 (< 0.04) ng/mL Liver Function 07/20/17 07/21/17 Range/Units 18:11 00:47 Total Bilirubin 0.6 0.6 (0.3-1.0) mg/dL AST 21 23 (13-39) Units/L ALT 15 14 (7-52) Units/L Alkaline Phosphatase 104 110 H (34-104) Units/L Albumin 2.9 L 3.0 L (3.5-5.7) g/dL - ABG Interpretation ABG results: PT/INR, D-dimer PT 13.4 Seconds (9.4-12.1) H 07/21/17 00:47 - Impressions Impressions Abdomen/Pelvis CT 07/20/17 10:22 IMPRESSION: Limited study. Haziness about both kidneys possibly related to urinary tract infection. No nephrolithiasis or hydronephrosis is noted. D/ / 07/20/2017 16:58:11 Tania Ballard MD / betsy Interpreting Provider: Tania Ballard MD - Attending Attestation I examined this patient and my medical decision-making was reviewed with the Resident Physician on 07/21/17. I agree with the documented findings, disposition and treatment plan as described except to the extent set forth below. Ms Smith is currently admitted for weakness and possible UTI. She remains moderate to high risk due to potential for worsening clinical status. Ms Smith feels OK. She is having pain on a wound on her side. No fever. Did not work with PT/OT today. Exam alert Comfortable Mucus membranes dry Heart reg No wheeze abd soft I/P 1. Weakness 2. Possible UTI Further diagnoses and plan as above.
[2017-07-21] MEDS: Insulin LISPRO 300 UNITS/3 ML VIAL SQ SCH ×4 (09:27→22:09)
[2017-07-21] MEDS: Sucralfate 1 GM TABLET PO SCH ×2 (09:38→15:43)
[2017-07-21] MEDS: *HR* OxyCODONE/APAP 10/325 TABLET PO PRN ×3 (09:38→22:45)
[2017-07-21] MEDS: Nystatin POWDER 30 GM BOTTLE TP SCH ×2 (09:38→22:10)
[2017-07-21] MEDS: Loratadine 10 MG TABLET PO SCH (09:38)
[2017-07-22 04:15] LABS: Basophils % 0.5 %; Eosinophils # 0.5 K/mcL (0.0-0.6); Eosinophils % 6.7 %; Hematocrit 34.5 % (35.3-44.9); Immature Granulocytes % 0.8 % (0-4); Lymphocytes # 2.7 K/mcL (0.6-4.6); Lymphocytes % 36.5 %; Mean Corpuscular HGB Conc 34.8 g/dL (31.6-35.5); Mean Corpuscular Hemoglobin 33.3 pg (28.0-33.3); Mean Corpuscular Volume 95.8 fL (83.0-100.0); Mean Platelet Volume 10.7 fL (9.4-12.4); Monocytes # 0.5 K/mcL (0.0-1.3); Monocytes % 6.5 %; Neutrophils # 3.6 K/mcL (1.6-8.9); Platelet Count 139 K/mcL (140-400); Red Cell Distribution Width 13.2 % (11.5-14.5)
[2017-07-22] MEDS: *HR* Heparin 5,000 UNIT/ML VIAL SQ SCH ×3 (06:07→23:43)
--- NOTE | 2017-07-22 06:50 | Electrocardiograph Report ---
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
[2017-07-22] MEDS: Insulin LISPRO 300 UNITS/3 ML VIAL SQ SCH ×4 (08:36→23:44)
--- NOTE | 2017-07-22 08:39 | Internal Med Progress Note ---
<Oj Mccormick - Last Filed: 07/22/17 13:00> Date of Encounter: 07/22/17 Time of Encounter: 08:37 - Assessment and plan (1) Generalized weakness Current Visit: Yes Status: Acute Assessment and plan: Generalized weakness most likely multifactorial including decubitius ulcer, uncontrolled DM and Morbid Obesity. Patient most likely does not have UTI. Patient is asymptomatic, U/A had a lot of squamous epithelial, leuk +, but nit - . Patient does hav History of Escherichia coli urinary tract infection. Currently empiric coverage with ceftriaxone. - Strict I/O - diabetic diet - continuous monitoring of ulcers - consider wound care consult - encouraged patient to participate in PT today - continue IVF - rocephin 1 gm (day 3) (2) UTI (urinary tract infection) Current Visit: Yes Status: Suspected Assessment and plan: see above Qualifiers: Urinary tract infection type: acute cystitis Hematuria presence: with hematuria Qualified Code(s): N30.01 - Acute cystitis with hematuria (3) Sepsis Current Visit: Yes Status: Resolved Assessment and plan: Currently does not meet sepsis criteria. luekocystosis has now resolved Qualifiers: Sepsis type: sepsis due to unspecified organism Qualified Code(s): A41.9 - Sepsis, unspecified organism (4) Obesity Current Visit: Yes Status: Chronic Assessment and plan: High risk for decompensation Counseled Qualifiers: Obesity type: due to excess calories Obesity classification: adult class 3 (BMI >= 40) Serious obesity comorbidity presence: with serious comorbidity Body mass index: BMI 70 or greater Qualified Code(s): E66.01 - Morbid (severe ) obesity due to excess calories; Z68.45 - Body mass index (BMI) 70 or greater, adult; Z68.45 - Body mass index (BMI) 70 or greater, adult; Z68.45 - Body mass index (BMI) 70 or greater, adult; Z68.45 - Body mass index (BMI) 70 or greater, adult (5) Decubitus ulcer Current Visit: Yes Status: Acute Assessment and plan: see above Qualifiers: Pressure ulcer location: lower back Pressure ulcer stage: stage 1 Laterality: left Qualified Code(s): L89.141 - Pressure ulcer of left lower back, stage 1 (6) BEATRICE (acute kidney injury) Current Visit: Yes Status: Acute Assessment and plan: most likely 2/2 fall. currently improving with down trending Cr - will continue to monitor, and encourage oral hydration (7) Hyperkalemia Current Visit: Yes Status: Resolved Assessment and plan: currently resolved, will continue to monitor (8) DVT prophylaxis Current Visit: Yes Status: Acute Assessment and plan: SCDs, heparin subcutaneous for DVT prophylaxis (9) Convergence insufficiency Current Visit: Yes Status: Acute Assessment and plan: Patient is unable to converge on EOM exam. - Patient to follow up with Optho outpatient - in the setting of generalized weakness and clinical findings ordered head CT to rule out cerebral etiologies - Time Spent With Patient Total time spent is greater than 50% in coordination of care (as documented) at patient's floor/unit and/or counseling patient: - Subjective Interval history: Ms Smith is a 67 yo F w/ pmh of DM, hypothyroid, CKD, previous UTI, insulin dependence presents with multiple day hx of weakness. Patient declined participating in PT yesterday, but is willing to try as she is able to today. No events over night, no new complaints. Patient denies chest pain, sob, n/v/f/ c. Patient does report a history of occassional "crossed eyed" - Constitutional Vitals: Temp Pulse Resp BP Pulse Ox 97.9 F 73 16 124/77 98 07/22/17 07:00 07/22/17 07:00 07/22/17 07:00 07/22/17 07:00 07/22/17 07:00 General appearance: Present: A&O X 3, morbidly obese, pleasant, answers questions appropriately - Head Head exam: Present: atraumatic, normocephalic - Eye Eye exam: Absent: EOMI (Patient is unable converge) - Respiratory Respiratory exam: Present: decreased breath sounds - Cardiovascular Cardiovascular exam: Present: RRR Internal Medicine: Result - Labs CBC & Chem 7: 07/22/17 03:20 07/22/17 09:34 Labs: Short CBC 07/22/17 Range/Units 03:20 WBC 7.4 (4.3-11.1) K/mcL Hgb 12.0 (11.5-15.4) g/dL Hct 34.5 L (35.3-44.9) % Plt Count 139 L (140-400) K/mcL Neutrophils # 3.6 (1.6-8.9) K/mcL - ABG Interpretation ABG results: PT/INR, D-dimer PT 13.4 Seconds (9.4-12.1) H 07/21/17 00:47 - VTE Documentation of Mechanical Device: Intermittent pneumatic compression device Consult Discharge Plan - Plan Referrals: Gregory Wynne MD [Primary Care Provider] - <Sumit Arizmendi - Last Filed: 07/22/17 17:46> Date of Encounter: 07/22/17 - Assessment and plan (1) UTI (urinary tract infection) Current Visit: Yes Status: Suspected Qualifiers: Urinary tract infection type: acute cystitis Hematuria presence: with hematuria Qualified Code(s): N30.01 - Acute cystitis with hematuria (2) Generalized weakness Current Visit: Yes Status: Acute (3) Sepsis Current Visit: Yes Status: Resolved Qualifiers: Sepsis type: sepsis due to unspecified organism Qualified Code(s): A41.9 - Sepsis, unspecified organism (4) Obesity Current Visit: Yes Status: Chronic Qualifiers: Obesity type: due to excess calories Obesity classification: adult class 3 (BMI >= 40) Serious obesity comorbidity presence: with serious comorbidity Body mass index: BMI 70 or greater Qualified Code(s): E66.01 - Morbid (severe ) obesity due to excess calories; Z68.45 - Body mass index (BMI) 70 or greater, adult; Z68.45 - Body mass index (BMI) 70 or greater, adult; Z68.45 - Body mass index (BMI) 70 or greater, adult; Z68.45 - Body mass index (BMI) 70 or greater, adult (5) Decubitus ulcer Current Visit: Yes Status: Acute Qualifiers: Pressure ulcer location: buttock Pressure ulcer stage: stage 1 Laterality : left Qualified Code(s): L89.321 - Pressure ulcer of left buttock, stage 1 (6) BEATRICE (acute kidney injury) Current Visit: Yes Status: Acute (7) Hyperkalemia Current Visit: Yes Status: Resolved (8) Convergence insufficiency Current Visit: Yes Status: Acute (9) Decubitus skin ulcer Current Visit: Yes Status: Acute Qualifiers: Pressure ulcer location: thigh Pressure ulcer stage: stage 2 Laterality: left Qualified Code(s): L89.222 - Pressure ulcer of left hip, stage 2 (10) CKD (chronic kidney disease), stage III Current Visit: Yes Status: Chronic (11) DVT prophylaxis Current Visit: Yes Status: Acute - Time Spent With Patient Total time spent is greater than 50% in coordination of care (as documented) at patient's floor/unit and/or counseling patient: - Constitutional Vitals: Temp Pulse Resp BP Pulse Ox 97.9 F 90 16 145/57 98 07/22/17 15:00 07/22/17 15:00 07/22/17 15:00 07/22/17 15:00 07/22/17 15:00 Internal Medicine: Result - Labs CBC & Chem 7: 07/22/17 03:20 07/22/17 09:34 Labs: Short CBC 07/22/17 Range/Units 03:20 WBC 7.4 (4.3-11.1) K/mcL Hgb 12.0 (11.5-15.4) g/dL Hct 34.5 L (35.3-44.9) % Plt Count 139 L (140-400) K/mcL Neutrophils # 3.6 (1.6-8.9) K/mcL BMP 07/22/17 09:34 Sodium 136 Potassium 5.2 H Chloride 107 Carbon Dioxide 24 BUN 22 Creatinine 1.21 H Glucose 153 H Calcium 8.8 - ABG Interpretation ABG results: PT/INR, D-dimer PT 13.4 Seconds (9.4-12.1) H 07/21/17 00:47 - Impressions Impressions Head CT 07/22/17 13:30 IMPRESSION: No acute intracranial abnormality. D/ / Maribeth Aly MD / Maribeth Aly MD Interpreting Provider: Maribeth Aly MD - Attending Attestation I examined this patient and my medical decision-making was reviewed with the Resident Physician on 07/22/17. I agree with the documented findings, disposition and treatment plan as described except to the extent set forth below. Ms Smith is currently admitted for weakness and probable UTI. She remains moderate to high risk due to potential for worsening clinical status. Ms Smith feels OK. No CP or SOB. No abd pain. Appetite OK. No GI issues. Exam Alert Comfortable Mucus membranes dry Heart distant Lungs clear anteriorly Abd soft 1. Probable UTI - cx pending 2. Awaiting PT/OT 3. CT head due to EOM issues Further diagnoses and plan as above.
[2017-07-22] MEDS: Sucralfate 1 GM TABLET PO SCH ×2 (08:41→17:08)
[2017-07-22] MEDS: Nystatin POWDER 30 GM BOTTLE TP SCH ×2 (08:42→23:46)
[2017-07-22] MEDS: Loratadine 10 MG TABLET PO SCH (08:42)
[2017-07-22] MEDS: cefTRIAXone 1,000 MG in Water for inj. (sterile) 20 ML 10 ML IVP SCH (08:42)
[2017-07-22 11:49] LABS: Potassium 5.2 mEq/L (3.5-5.1)
[2017-07-22 13:22] LABS: Calcium 8.8 mg/dL (8.6-10.3)
[2017-07-22] MEDS: *HR* OxyCODONE/APAP 10/325 TABLET PO PRN ×2 (17:12→23:44)
[2017-07-23 05:52] LABS: Hematocrit 35.1 % (35.3-44.9); Mean Corpuscular HGB Conc 34.2 g/dL (31.6-35.5); Mean Corpuscular Hemoglobin 32.3 pg (28.0-33.3); Mean Corpuscular Volume 94.4 fL (83.0-100.0); Mean Platelet Volume 9.6 fL (9.4-12.4); Platelet Count 176 K/mcL (140-400); Red Blood Count 3.72 M/mcL (3.82-4.97); Red Cell Distribution Width 13.1 % (11.5-14.5)
[2017-07-23] MEDS: *HR* Heparin 5,000 UNIT/ML VIAL SQ SCH ×2 (06:08→14:07)
[2017-07-23 06:14] LABS: BUN/Creatinine Ratio 21 (6-26); Blood Urea Nitrogen 23 mg/dL (8-23); Calcium 9.2 mg/dL (8.6-10.3); Carbon Dioxide 26 mEq/L (23-29); Chloride 106 mEq/L (98-107); Glucose 122 mg/dL (70-105); Osmolality,Calculated 293 (280-300); Potassium 4.2 mEq/L (3.5-5.1); Sodium 139 mEq/L (136-145); eGFR For African Americans > 60 (> 60); eGFR For Non-African Americans 50 (> 60)
[2017-07-23] MEDS: 0.9 % Sodium Chloride 1,000 ML IVC SCH (07:09)
[2017-07-23] MEDS: Sucralfate 1 GM TABLET PO SCH (08:36)
[2017-07-23] MEDS: Loratadine 10 MG TABLET PO SCH (08:36)
[2017-07-23] MEDS: cefTRIAXone 1,000 MG in Water for inj. (sterile) 20 ML 10 ML IVP SCH (08:36)
[2017-07-23] MEDS: Insulin LISPRO 300 UNITS/3 ML VIAL SQ SCH ×2 (08:36→11:56)
--- NOTE | 2017-07-23 08:52 | Internal Med Progress Note ---
<Oj Mccormick - Last Filed: 07/23/17 11:22> Date of Encounter: 07/23/17 Time of Encounter: 09:21 - Assessment and plan (1) Generalized weakness Status: Acute Assessment and plan: Currently resolved, most likely chronic. Generalized weakness most likely multifactorial including decubitius ulcer, uncontrolled DM and Morbid Obesity. Patient most likely does not have UTI. Patient is asymptomati, U/A had a lot of squamous epithelial, leuk +, but nit -. Patient does have History of Escherichia coli urinary tract infection. Currently empiric coverage with ceftriaxone. - Strict I/O - diabetic diet - continuous monitoring of ulcers - consider wound care consult - encouraged patient to participate in PT - continue IVF - rocephin 1 gm (day 4) (2) UTI (urinary tract infection) Status: Suspected Assessment and plan: see above Qualifiers: Urinary tract infection type: acute cystitis Hematuria presence: with hematuria Qualified Code(s): N30.01 - Acute cystitis with hematuria (3) Sepsis Status: Resolved Assessment and plan: Currently does not meet sepsis criteria. luekocystosis has now resolved Qualifiers: Sepsis type: sepsis due to unspecified organism Qualified Code(s): A41.9 - Sepsis, unspecified organism (4) Obesity Status: Chronic Assessment and plan: High risk for decompensation Counseled Qualifiers: Obesity type: due to excess calories Obesity classification: adult class 3 (BMI >= 40) Serious obesity comorbidity presence: with serious comorbidity Body mass index: BMI 70 or greater Qualified Code(s): E66.01 - Morbid (severe ) obesity due to excess calories; Z68.45 - Body mass index (BMI) 70 or greater, adult; Z68.45 - Body mass index (BMI) 70 or greater, adult; Z68.45 - Body mass index (BMI) 70 or greater, adult; Z68.45 - Body mass index (BMI) 70 or greater, adult (5) Decubitus ulcer Status: Acute Assessment and plan: see above Qualifiers: Pressure ulcer location: buttock Pressure ulcer stage: stage 1 Laterality : left Qualified Code(s): L89.321 - Pressure ulcer of left buttock, stage 1 (6) BEATRICE (acute kidney injury) Status: Acute Assessment and plan: most likely 2/2 fall. currently improving with down trending Cr - will continue to monitor, and encourage oral hydration (7) Hyperkalemia Status: Resolved Assessment and plan: currently resolved, will continue to monitor (8) DVT prophylaxis Status: Acute Assessment and plan: SCDs, heparin subcutaneous for DVT prophylaxis (9) Convergence insufficiency Status: Acute Assessment and plan: Patient is unable to converge on EOM exam. - Patient to follow up with Optho outpatient - CT head was negative for acute findings yesterday (10) Decubitus skin ulcer Status: Acute Assessment and plan: currently stable and clean. continue to rotate patient Qualifiers: Pressure ulcer location: thigh Pressure ulcer stage: stage 2 Laterality: left Qualified Code(s): L89.222 - Pressure ulcer of left hip, stage 2 (11) CKD (chronic kidney disease), stage III Status: Chronic (12) Chest pain Status: Acute Assessment and plan: Patient has had multi-day hx of chest pain, only reporting today. Has had 3 negative trops, no changes on EKG, no suggestive findings on CXR. Patient reports it's most likely indigestion. - Order new EKG - 40 omeprazole + tums PRN Qualifiers: Qualified Code(s): R07.9 - Chest pain, unspecified - Time Spent With Patient Total time spent is greater than 50% in coordination of care (as documented) at patient's floor/unit and/or counseling patient: - Subjective Interval history: Ms Smith is a 67 yo F w/ pmh of DM, hypothyroid, CKD, previous UTI, insulin dependence presents with multiple day hx of weakness. No events over night. Patient states she has had aches in her chest that prior to being hospitalized and she thinks it's heart burn. She said it wasn't bothering her and has worsened with eating. Patient denies chest pain, sob, n/v/f/c. - Constitutional Vitals: Temp Pulse Resp BP Pulse Ox 98.2 F 70 16 123/82 96 07/23/17 08:23 07/23/17 08:23 07/23/17 08:23 07/23/17 08:23 07/23/17 08:23 General appearance: Present: A&O X 3, morbidly obese, pleasant, answers questions appropriately - Head Head exam: Present: normal inspection - ENT ENT exam: Present: mucous membranes moist - Respiratory Respiratory exam: Present: decreased breath sounds - Cardiovascular Cardiovascular exam: Present: RRR - Extremities Exam Extremities exam: Present: joint swelling. Absent: pedal edema Internal Medicine: Result - Labs CBC & Chem 7: 07/23/17 05:31 07/23/17 05:31 Labs: Short CBC 07/23/17 Range/Units 05:31 WBC 6.3 (4.3-11.1) K/mcL Hgb 12.0 (11.5-15.4) g/dL Hct 35.1 L (35.3-44.9) % Plt Count 176 (140-400) K/mcL BMP 07/22/17 07/23/17 09:34 05:31 Sodium 136 139 Potassium 5.2 H 4.2 Chloride 107 106 Carbon Dioxide 24 26 BUN 22 23 Creatinine 1.21 H 1.09 Glucose 153 H 122 H Calcium 8.8 9.2 - ABG Interpretation ABG results: PT/INR, D-dimer PT 13.4 Seconds (9.4-12.1) H 07/21/17 00:47 - Impressions Impressions Head CT 07/22/17 13:30 IMPRESSION: No acute intracranial abnormality. D/ / Maribeth Aly MD / Maribeth Aly MD Interpreting Provider: Maribeth Aly MD - VTE Documentation of Mechanical Device: Intermittent pneumatic compression device Consult Discharge Plan - Plan Additional Instructions: Keep greer cath in place during transportation to [place]. Patient to have follow up visit within 1 week of D/C. Referrals: Gregory Wynne MD [Primary Care Provider] - Prescriptions: Calcium Carbonate [Tums] 1,000 mg PO Q4HR PRN 30 Days #180 tab.chew PRN Reason: Heartburn OxyCODONE/APAP 10/325 [Percocet 10/325 MG] 1 each PO Q6HR PRN 2 Days #8 tablet PRN Reason: Pain Omeprazole [PriLOSEC] 40 mg PO DAILY@0630 30 Days #30 capsule. <Sumit Arizmendi - Last Filed: 07/23/17 16:18> Date of Encounter: 07/23/17 - Assessment and plan (1) Generalized weakness Status: Acute (2) UTI (urinary tract infection) Status: Suspected Qualifiers: Urinary tract infection type: acute cystitis Hematuria presence: with hematuria Qualified Code(s): N30.01 - Acute cystitis with hematuria (3) Sepsis Status: Resolved Qualifiers: Sepsis type: sepsis due to unspecified organism Qualified Code(s): A41.9 - Sepsis, unspecified organism (4) Obesity Status: Chronic Qualifiers: Obesity type: due to excess calories Obesity classification: adult class 3 (BMI >= 40) Serious obesity comorbidity presence: with serious comorbidity Body mass index: BMI 70 or greater Qualified Code(s): E66.01 - Morbid (severe ) obesity due to excess calories; Z68.45 - Body mass index (BMI) 70 or greater, adult; Z68.45 - Body mass index (BMI) 70 or greater, adult; Z68.45 - Body mass index (BMI) 70 or greater, adult; Z68.45 - Body mass index (BMI) 70 or greater, adult (5) Decubitus ulcer Status: Acute Qualifiers: Pressure ulcer location: buttock Pressure ulcer stage: stage 1 Laterality : left Qualified Code(s): L89.321 - Pressure ulcer of left buttock, stage 1 (6) BEATRICE (acute kidney injury) Status: Acute (7) Hyperkalemia Status: Resolved (8) DVT prophylaxis Status: Acute (9) Convergence insufficiency Status: Acute (10) Decubitus skin ulcer Status: Acute Qualifiers: Pressure ulcer location: thigh Pressure ulcer stage: stage 2 Laterality: left Qualified Code(s): L89.222 - Pressure ulcer of left hip, stage 2 (11) CKD (chronic kidney disease), stage III Status: Chronic (12) Chest pain Status: Acute Qualifiers: Qualified Code(s): R07.9 - Chest pain, unspecified - Time Spent With Patient Total time spent is greater than 50% in coordination of care (as documented) at patient's floor/unit and/or counseling patient: - Constitutional Vitals: Temp Pulse Resp BP Pulse Ox 98.6 F 75 18 165/84 98 07/23/17 11:25 07/23/17 11:25 07/23/17 11:25 07/23/17 11:25 07/23/17 11:25 Internal Medicine: Result - Labs CBC & Chem 7: 07/23/17 05:31 07/23/17 05:31 Labs: Short CBC 07/23/17 Range/Units 05:31 WBC 6.3 (4.3-11.1) K/mcL Hgb 12.0 (11.5-15.4) g/dL Hct 35.1 L (35.3-44.9) % Plt Count 176 (140-400) K/mcL BMP 07/23/17 05:31 Sodium 139 Potassium 4.2 Chloride 106 Carbon Dioxide 26 BUN 23 Creatinine 1.09 Glucose 122 H Calcium 9.2 - ABG Interpretation ABG results: PT/INR, D-dimer PT 13.4 Seconds (9.4-12.1) H 07/21/17 00:47 - Attending Attestation Please see discharge summary of this date.
[2017-07-23] MEDS: Nystatin POWDER 30 GM BOTTLE TP SCH (11:20)
[2017-07-23 11:28] VITALS: BP 165/84
--- NOTE | 2017-07-23 14:28 | Discharge Summary ---
<Oj Mccormick - Last Filed: 07/23/17 14:28> Orders not resulted at time of discharge: Pending orders 07/20/17 13:15 Culture,Blood,Additional [BC] Stat 07/20/17 13:27 Culture,Blood [BC] Stat 07/23/17 09:30 EKG [ECG 12 lead ECG] [ECG] Routine 07/24/17 04:00 BMP [Basic Metabolic Panel] AM 0400 CBC no Diff [Complete Blood Count w/o Diff] [HEME] AM 0400 07/25/17 04:00 BMP [Basic Metabolic Panel] AM 0400 CBC no Diff [Complete Blood Count w/o Diff] [HEME] AM 04007/26/17 04:00 BMP [Basic Metabolic Panel] AM 0400 CBC no Diff [Complete Blood Count w/o Diff] [HEME] AM 0400 07/27/17 04:00 BMP [Basic Metabolic Panel] AM 0400 CBC no Diff [Complete Blood Count w/o Diff] [HEME] AM 0400 07/28/17 04:00 BMP [Basic Metabolic Panel] AM 0400 CBC no Diff [Complete Blood Count w/o Diff] [HEME] AM 0400 Date of Encounter: 07/23/17 Time of Encounter: 14:14 - Discharge Diagnosis (1) Generalized weakness Priority: Primary Status: Acute (2) UTI (urinary tract infection) Priority: Secondary Status: Suspected Qualifiers: Urinary tract infection type: acute cystitis Hematuria presence: with hematuria Qualified Code(s): N30.01 - Acute cystitis with hematuria (3) Sepsis Priority: Secondary Status: Resolved Qualifiers: Sepsis type: sepsis due to unspecified organism Qualified Code(s): A41.9 - Sepsis, unspecified organism (4) Obesity Priority: Secondary Status: Chronic Qualifiers: Obesity type: due to excess calories Obesity classification: adult class 3 (BMI >= 40) Serious obesity comorbidity presence: with serious comorbidity Body mass index: BMI 70 or greater Qualified Code(s): E66.01 - Morbid (severe ) obesity due to excess calories; Z68.45 - Body mass index (BMI) 70 or greater, adult; Z68.45 - Body mass index (BMI) 70 or greater, adult; Z68.45 - Body mass index (BMI) 70 or greater, adult; Z68.45 - Body mass index (BMI) 70 or greater, adult (5) Decubitus ulcer Priority: Secondary Status: Acute Qualifiers: Pressure ulcer location: buttock Pressure ulcer stage: stage 1 Laterality : left Qualified Code(s): L89.321 - Pressure ulcer of left buttock, stage 1 (6) BEATRICE (acute kidney injury) Priority: Secondary Status: Acute (7) Hyperkalemia Priority: Secondary Status: Resolved (8) DVT prophylaxis Priority: Secondary Status: Acute (9) Convergence insufficiency Priority: Secondary Status: Acute (10) Decubitus skin ulcer Priority: Secondary Status: Acute Qualifiers: Pressure ulcer location: thigh Pressure ulcer stage: stage 2 Laterality: left Qualified Code(s): L89.222 - Pressure ulcer of left hip, stage 2 (11) CKD (chronic kidney disease), stage III Priority: Secondary Status: Chronic (12) Chest pain Priority: Secondary Status: Acute Qualifiers: Qualified Code(s): R07.9 - Chest pain, unspecified Hospital course: Ms. Smith is a 67 year old female w/ pmhx of morbid obesity, htn, DM, KUMAR, CHF , thyroid who presented to [facility] after sustaining a fall. Patient was on the cammode and unable to get up, so she called squad to assist her to get up. When they were assisting her to get up she slipped and fell and was then brought to [facility]. In the ED she was found to have a WBC of 12.2 determined to be high risk for Sepsis then admitted. Patient also had a U/A with many squamous epithelial cells, positive leuks but negative nitrites. Urine Cx came back negative. Patient was started on IVF, ceftriaxone. AFter the first day of treatment she had no leukocytosis, and vitals remained stable. Patient also had an elevated Cr at 1.6, which steadily improved with IVF, and was resolved by 4th day of hospitalization. Patient was accepted to [facility] for rehabilitation. Patient will be discharged with no additional medications including antibiotics. Patient will have greer in place for transport. Patient also was further worked up with lactic acid of 1.7, trop negative x3. Blood cultures negative x2. CXR showed no acute processes. She was further worked up for fractures, cardiac, pulmonary with XR shoulder, XR knee, ct shoulder, serial EKG, ct head and CT abd/pelvis all came back negative for acute process. Patient arrived with a decubitus ulcer grade 1, was monitored during hospitalization, and patient was rotated multiple times a day. Discharge discussed with: patient Time spent discussing smoking cessation with patient: more than 10 minutes - Time Spent with Patient Total time spent providing and/or coordinating discharge services: Greater than 30 minutes - Discharge Medications Prescriptions: Calcium Carbonate [Tums] 1,000 mg PO Q4HR PRN 30 Days #180 tab.chew PRN Reason: Heartburn OxyCODONE/APAP 10/325 [Percocet 10/325 MG] 1 each PO Q6HR PRN 2 Days #8 tablet PRN Reason: Pain Omeprazole [PriLOSEC] 40 mg PO DAILY@629 30 Days #30 capsule.dr Home Medications: Amitriptyline HCl 75 mg PO HS 10/07/16 [History] Docusate [Colace] 100 mg PO DAILY 10/07/16 [History] Furosemide [Lasix] 80 mg PO DAILY 10/07/16 [History] Gabapentin [Neurontin] 800 mg PO TID 10/07/16 [History] Insulin LISPRO [Humalog] 0 unit SQ AD 10/07/16 [History] Levothyroxine Sodium [Synthroid] 300 mcg PO DAILY 10/07/16 [History] Lisinopril [Zestril] 20 mg PO DAILY 10/07/16 [History] Loratadine [Claritin] 10 mg PO DAILY 10/07/16 [History] Nystatin POWDER [Nystop] 1 appl TP BID 10/07/16 [History] OxyCODONE/APAP 10/325 [Percocet 10/325 MG] 1 tab PO Q6HR PRN 10/07/16 [History] Pravastatin Sodium [Pravachol] 40 mg PO HS 10/07/16 [History] Sertraline [Zoloft] 100 mg PO BID 10/07/16 [History] Spironolactone [Aldactone] 25 mg PO DAILY 10/07/16 [History] Sucralfate [Carafate] 1 gm PO 0730,1630 10/07/16 [History] Vitamin D3/Folic Acid [Folixapure Tablet] 5,000 unit PO DAILY 10/07/16 [History] Calcium Carbonate [Tums] 1,000 mg PO Q4HR PRN 30 Days #180 tab.chew 07/23/17 [Rx ] Omeprazole [PriLOSEC] 40 mg PO DAILY@0630 30 Days #30 capsule. 07/23/17 [Rx] OxyCODONE/APAP 10/325 [Percocet 10/325 MG] 1 each PO Q6HR PRN 2 Days #8 tablet 07/23/17 [Rx] Allergies/Adverse Reactions: 3 Allergy/AdvReac Type Severity Reaction Status Date / Time adhesive tape AdvReac Rash Verified 07/20/17 08:53 atropine AdvReac Rash Verified 07/20/17 08:53 bacitracin AdvReac Rash Verified 07/20/17 08:53 benazepril AdvReac Rash Verified 07/20/17 08:53 diphenhydramine AdvReac Rash Verified 07/20/17 08:53 [From Benadryl] Erythromycin Base AdvReac Rash Verified 07/20/17 08:53 hydrogen peroxide AdvReac Rash Verified 07/20/17 08:53 Hyoscyamine AdvReac Rash Verified 07/20/17 08:53 Macrolide Antibiotics AdvReac Rash Verified 07/20/17 08:53 Metaxalone AdvReac Rash Verified 07/20/17 08:53 mold AdvReac Rash Verified 07/20/17 08:53 phenobarbital AdvReac Rash Verified 07/20/17 08:53 scopolamine AdvReac Rash Verified 07/20/17 08:53 Date of admission: 07/20/17 10:14 Primary care physician: Gregory Wynne MD Consults: 07/20/17 12:27 Consult to Automotive Manufacturer [CONS] Routine Reason for SW Consult: CURRENT HOME HELPERS AIDES IN HOME, JORDI HOME OXYGEN AND CPAP 07/21/17 08:32 Consult to Physical Therapy [CONS] Routine Comment: Evaluate, develop and implement POC Reason for Consult: Needed for rehab placement at d/c Does patient have active BEDREST order?: No Is patient medically & hemodynamically stable?: Yes 07/21/17 08:33 Consult to Occupational Therapy [CONS] Routine Comment: Evaluate, develop and implement POC Reason for Consult: Needed for rehab placement at d/ Does patient have active BEDREST order?: No Is patient medically & hemodynamically stable?: Yes 07/21/17 11:03 Consult to Wound Care [CONS] Routine Reason for Consult: Bariatic bed needed Call Completed: Yes Discharging clinician: Oj Mccormick Anticipated date of discharge: 07/23/17 - Constitutional Vitals: Temp Pulse Resp BP Pulse Ox 98.6 F 75 18 165/84 98 07/23/17 11:25 07/23/17 11:25 07/23/17 11:25 07/23/17 11:25 07/23/17 11:25 General appearance: Present: A&O X 3, morbidly obese, pleasant, answers questions appropriately - Head Head exam: Present: normal inspection - Neck Neck exam general surgery: Present: supple - Respiratory Respiratory exam: Present: decreased breath sounds - Cardiovascular Cardiovascular exam: Present: RRR - GI/Abdominal GI/Abdominal exam: Present: normal bowel sounds. Absent: distended, guarding, tenderness - Extremities Exam Extremities exam: Present: joint swelling - Patient Status Disposition: Transfer SNF Condition: Fair Functional capacity at discharge: bed bound Overall status at discharge: patient is progressing back to baseline - Ambulatory Orders Ambulatory Orders: Do Not Remove Greer Catheter Time Frame: 3 Days, Location: [facility] Do Not Remove Greer Catheter Time Frame: 07/26/17, Location: [facility] - Discharge Instructions Follow Up With: Gregory Wynne MD [Primary Care Provider] - Forms: ED Satisfaction Letter Additional Instructions: Keep greer cath in place during transportation to [facility]. Patient to have follow up visit within 1 week of D/C. - Diet and Activity Activity: increase activity as tolerated Diet: diabetic diet, low fat, low cholesterol, low salt diet - VTE Documentation of Mechanical Device: Intermittent pneumatic compression device <Sumit Arizmendi - Last Filed: 07/23/17 16:25> - NOTES TO OUTPATIENT PROVIDER Notes to Outpatient Provider: Pt admitted with weakness. Thought to have UTI but culture negative. Discharged to SNF. Orders not resulted at time of discharge: Pending orders 07/20/17 13:15 Culture,Blood,Additional [BC] Stat 07/20/17 13:27 Culture,Blood [BC] Stat 07/23/17 09:30 EKG [ECG 12 lead ECG] [ECG] Routine Date of Encounter: 07/23/17 - Discharge Diagnosis (1) UTI (urinary tract infection) Priority: Primary Status: Suspected Qualifiers: Urinary tract infection type: acute cystitis Hematuria presence: with hematuria Qualified Code(s): N30.01 - Acute cystitis with hematuria (2) Generalized weakness Status: Acute (3) Sepsis Status: Resolved Qualifiers: Sepsis type: sepsis due to unspecified organism Qualified Code(s): A41.9 - Sepsis, unspecified organism (4) Obesity Status: Chronic Qualifiers: Obesity type: due to excess calories Obesity classification: adult class 3 (BMI >= 40) Serious obesity comorbidity presence: with serious comorbidity Body mass index: BMI 70 or greater Qualified Code(s): E66.01 - Morbid (severe ) obesity due to excess calories; Z68.45 - Body mass index (BMI) 70 or greater, adult; Z68.45 - Body mass index (BMI) 70 or greater, adult; Z68.45 - Body mass index (BMI) 70 or greater, adult; Z68.45 - Body mass index (BMI) 70 or greater, adult (5) Decubitus ulcer Status: Acute Qualifiers: Pressure ulcer location: buttock Pressure ulcer stage: stage 1 Laterality : left Qualified Code(s): L89.321 - Pressure ulcer of left buttock, stage 1 (6) BEATRICE (acute kidney injury) Status: Resolved (7) Hyperkalemia Status: Resolved (8) DVT prophylaxis Status: Acute (9) Decubitus skin ulcer Status: Acute Qualifiers: Pressure ulcer location: thigh Pressure ulcer stage: stage 2 Laterality: left Qualified Code(s): L89.222 - Pressure ulcer of left hip, stage 2 (10) Convergence insufficiency Status: Chronic (11) CKD (chronic kidney disease), stage III Status: Chronic (12) Chest pain Status: Resolved Qualifiers: Qualified Code(s): R07.9 - Chest pain, unspecified Hospital course: Ms. Smith is a 67 year old female - Time Spent with Patient Total time spent providing and/or coordinating discharge services: 38min Date of admission: 07/20/17 10:14 Primary care physician: Gregory Wynne MD Consults: 07/20/17 12:27 Consult to Automotive Manufacturer [CONS] Routine Reason for SW Consult: CURRENT HOME HELPERS AIDES IN HOME, JORDI HOME OXYGEN AND CPAP 07/21/17 08:32 Consult to Physical Therapy [CONS] Routine Comment: Evaluate, develop and implement POC Reason for Consult: Needed for rehab placement at d/c [facility] patient have active BEDREST order?: No Is patient medically & hemodynamically stable?: Yes 07/21/17 08:33 Consult to Occupational Therapy [CONS] Routine Comment: Evaluate, develop and implement POC Reason for Consult: Needed for rehab placement at d/c Does patient have active BEDREST order?: No Is patient medically & hemodynamically stable?: Yes 07/21/17 11:03 Consult to Wound Care [CONS] Routine Reason for Consult: Bariatic bed needed Call Completed: Yes - Constitutional Vitals: Temp Pulse Resp BP Pulse Ox 98.6 F 75 18 165/84 98 07/23/17 11:25 07/23/17 11:25 07/23/17 11:25 07/23/17 11:25 07/23/17 11:25 - Attending Attestation I examined this patient and my medical decision-making was reviewed with the Resident Physician on 07/23/17. I agree with the documented findings, disposition and treatment plan as described except to the extent set forth below. Ms Smith has been admitted for weakness and presumed UTI. Culture of urine is negative. She has remained afebrile. She has been approved for discharge to SNF and will be transferred to there today. Exam alert Comfortable Mucus membranes dry Heart not tachy No wheeze Plan D/C to SNF today.
--- NOTE | 2017-07-23 14:40 | Physician Discharge Referral ---
ExtendedCare Referral Info Transfer To: [facility] Provider in Charge after Transfer: PCP Institutional Level of Care: Skilled - Diagnosis (1) Generalized weakness Priority: Primary Status: Acute (2) UTI (urinary tract infection) Priority: Secondary Status: Suspected (3) Sepsis Priority: Secondary Status: Resolved (4) Obesity Priority: Secondary Status: Chronic (5) Decubitus ulcer Priority: Secondary Status: Acute (6) BEATRICE (acute kidney injury) Priority: Secondary Status: Acute (7) Hyperkalemia Priority: Secondary Status: Resolved (8) DVT prophylaxis Priority: Secondary Status: Acute (9) Convergence insufficiency Priority: Secondary Status: Acute (10) Decubitus skin ulcer Priority: Secondary Status: Acute (11) CKD (chronic kidney disease), stage III Priority: Secondary Status: Chronic (12) Chest pain Priority: Secondary Status: Acute - Transfer Medications Prescriptions: Calcium Carbonate [Tums] 1,000 mg PO Q4HR PRN 30 Days #180 tab.chew PRN Reason: Heartburn Omeprazole [PriLOSEC] 40 mg PO DAILY@629 30 Days #30 capsule.dr Home Medications: Amitriptyline HCl 75 mg PO HS 10/07/16 [History] Docusate [Colace] 100 mg PO DAILY 10/07/16 [History] Furosemide [Lasix] 80 mg PO DAILY 10/07/16 [History] Gabapentin [Neurontin] 800 mg PO TID 10/07/16 [History] Insulin LISPRO [Humalog] 0 unit SQ AD 10/07/16 [History] Levothyroxine Sodium [Synthroid] 300 mcg PO DAILY 10/07/16 [History] Lisinopril [Zestril] 20 mg PO DAILY 10/07/16 [History] Loratadine [Claritin] 10 mg PO DAILY 10/07/16 [History] Nystatin POWDER [Nystop] 1 appl TP BID 10/07/16 [History] OxyCODONE/APAP 10/325 [Percocet 10/325 MG] 1 tab PO Q6HR PRN 10/07/16 [History] Pravastatin Sodium [Pravachol] 40 mg PO HS 10/07/16 [History] Sertraline [Zoloft] 100 mg PO BID 10/07/16 [History] Spironolactone [Aldactone] 25 mg PO DAILY 10/07/16 [History] Sucralfate [Carafate] 1 gm PO 0730,1630 10/07/16 [History] Vitamin D3/Folic Acid [Folixapure Tablet] 5,000 unit PO DAILY 10/07/16 [History] Calcium Carbonate [Tums] 1,000 mg PO Q4HR PRN 30 Days #180 tab.chew 07/23/17 [Rx ] Omeprazole [PriLOSEC] 40 mg PO DAILY@0630 30 Days #30 capsule. 07/23/17 [Rx] Allergies/Adverse Reactions: 3 Allergy/AdvReac Type Severity Reaction Status Date / Time adhesive tape AdvReac Rash Verified 07/20/17 08:53 atropine AdvReac Rash Verified 07/20/17 08:53 bacitracin AdvReac Rash Verified 07/20/17 08:53 benazepril AdvReac Rash Verified 07/20/17 08:53 diphenhydramine AdvReac Rash Verified 07/20/17 08:53 [From Benadryl] Erythromycin Base AdvReac Rash Verified 07/20/17 08:53 hydrogen peroxide AdvReac Rash Verified 07/20/17 08:53 Hyoscyamine AdvReac Rash Verified 07/20/17 08:53 Macrolide Antibiotics AdvReac Rash Verified 07/20/17 08:53 Metaxalone AdvReac Rash Verified 07/20/17 08:53 mold AdvReac Rash Verified 07/20/17 08:53 phenobarbital AdvReac Rash Verified 07/20/17 08:53 scopolamine AdvReac Rash Verified 07/20/17 08:53 - Respiratory Orders Smoking Cessation: Smoking cessation has been advised. For more information, call the [place] Tobacco Quit Line at 5-938-ZWHS-NOW. - Advance Directives Code Status: Full Code - Mobility Orders Other (encourage activity) - Rehabiliation Orders Rehab Potential: Fair Rehab Orders: Evaluation for Physical Therapy, Evaluation for Occupational Therapy - Diet Orders No Added Salt (LEIGH ANN), No Concentrated Sweets, Cardiac CERTIFICATION: I certify that the transfer of the above named patient to an Extended Care Facility is necessary for the continuing treatment of the diagnosis listed. The above information is true and accurate reflection of patient's current condition. Confidential - Redisclosure prohibited without a patient's written consent.
--- NOTE | 2017-07-28 11:56 | Electrocardiograph Report ---
[place] [id number] Test Date: 2017-07-23 Pat Name: Ella Smith Department: 114 Room: [facility] Gender: F Nitrating Acid Mixer: : 1950 Requested By: Sumit Arizmendi Order Number: [id number] Reading MD: Adan Mccauley Measurements Intervals [place] Rate: 74 P: 54 UT: 183 QRS: 45 QRSD: 102 T: 64 QT: 393 QTc: 420 Interpretive Statements SINUS RHYTHM LOW QRS VOLTAGE IN PRECORDIAL LEADS Electronically Signed On 07-28-2017 11:54:56 EDT by Adan Mccauley
--- NOTE | 2017-07-28 11:56 | Electrocardiograph Report ---
[place] [id number] Test Date: 2017-07-23 Pat Name: Ella Smith Department: 114 Room: [facility] Gender: F Office Support: : 1950 Requested By: Oj Mccormick Order Number: [id number] Reading MD: Adan Mccauley Measurements Intervals [place] Rate: 74 P: 79 CO: 178 QRS: 42 QRSD: 94 T: 73 QT: 370 QTc: 397 Interpretive Statements SINUS RHYTHM LOW QRS VOLTAGE IN PRECORDIAL LEADS NONSPECIFIC T-WAVE ABNORMALITY BASELINE ARTIFACT Electronically Signed On 07-28-2017 11:55:23 EDT by Adan Mccauley
== END 2017-07-23 15:46 | DRG 872 ==
LOC: EMEROO 05:23 → 2NENU 10:14 → 3NENU 07-22 19:10
PROVIDERS: ADMIT Internal Medicine; ATTEND Internal Medicine

== ENCOUNTER 2019-04-05 11:11 | Inpatient (IN) ==
[2019-04-05] MEDS ORDERED: Piperacillin/Tazobactam 3.375 GM in 0.9 % Sodium Chloride Mini Bag 100 ML IVPB ONE (14:07)
[2019-04-05 14:11] LABS: Hematocrit 37.4 % (35.3-44.9); Hemoglobin 12.7 g/dL (11.5-15.4); Mean Corpuscular Hemoglobin 33.3 pg (28.0-33.3); Mean Corpuscular Volume 98.2 fL (83.0-100.0); Mean Platelet Volume 9.9 fL (9.4-12.4); Platelet Count 153 K/mcL (140-400); Red Blood Count 3.81 M/mcL (3.82-4.97); Red Cell Distribution Width 13.2 % (11.5-14.5)
[2019-04-05 14:49] LABS: Calcium 9.3 mg/dL (8.6-10.3); Potassium 3.5 mEq/L (3.5-5.1)
[2019-04-05] MEDS ORDERED: Naloxone 0.4 MG/ML INJ IVP PRN (15:18)
[2019-04-05] MEDS ORDERED: D5% in Water 1,000 ML IVC PRN (15:20)
[2019-04-05] MEDS ORDERED: Dextrose Gel 15 GM/37.5 ML TUBE PO PRN ×2 (15:20)
[2019-04-05] MEDS ORDERED: *HR* Dextrose 50 % in Water (Syg) 50 ML SYRINGE IVP PRN (15:20)
[2019-04-05] MEDS: Insulin LISPRO 300 UNITS/3 ML VIAL SQ SCH (18:34)
[2019-04-05] MEDS: *HR* OxyCODONE/APAP 7.5/325 TABLET PO PRN (19:59)
[2019-04-05] MEDS: Gabapentin 400 MG CAPSULE PO SCH (21:25)
[2019-04-06] MEDS: *HR* OxyCODONE/APAP 7.5/325 TABLET PO PRN ×3 (01:55→18:49)
[2019-04-06] MEDS: Ampicillin/Sulbactam 1,500 MG in 0.9 % Sodium Chloride Mini Bag 100 ML IVPB SCH ×4 (05:38→23:55)
[2019-04-06] MEDS: Insulin LISPRO 300 UNITS/3 ML VIAL SQ SCH ×3 (07:52→17:43)
[2019-04-06] MEDS: Gabapentin 400 MG CAPSULE PO SCH ×3 (09:20→21:40)
[2019-04-06 19:25] LABS: Basophils % 0.5 %; Eosinophils # 0.4 K/mcL (0.0-0.6); Eosinophils % 4.3 %; Hematocrit 37.5 % (35.3-44.9); Hemoglobin 13.3 g/dL (11.5-15.4); Immature Granulocytes % 0.2 % (0-4); Lymphocytes # 3.1 K/mcL (0.6-4.6); Lymphocytes % 37.7 %; Mean Corpuscular HGB Conc 35.5 g/dL (31.6-35.5); Mean Corpuscular Hemoglobin 32.9 pg (28.0-33.3); Mean Platelet Volume 10.4 fL (9.4-12.4); Monocytes # 0.3 K/mcL (0.0-1.3); Monocytes % 3.9 %; Neutrophils # 4.3 K/mcL (1.6-8.9); Platelet Count 144 K/mcL (140-400); Red Blood Count 4.04 M/mcL (3.82-4.97); Red Cell Distribution Width 13.2 % (11.5-14.5); Segmented Neutrophils % 53.4 %; White Blood Count 8.1 K/mcL (4.3-11.1)
[2019-04-06 19:26] LABS: Mean Corpuscular Volume 92.8 fL (83.0-100.0)
[2019-04-06 19:48] LABS: Calcium 9.2 mg/dL (8.6-10.3); Potassium 4.1 mEq/L (3.5-5.1)
[2019-04-07] MEDS: *HR* OxyCODONE/APAP 7.5/325 TABLET PO PRN ×3 (01:39→14:30)
[2019-04-07 03:42] LABS: Calcium 8.8 mg/dL (8.6-10.3); Potassium 3.7 mEq/L (3.5-5.1)
[2019-04-07 03:45] LABS: Basophils # 0.1 K/mcL (0.0-0.2); Basophils % 0.7 %; Eosinophils # 0.3 K/mcL (0.0-0.6); Eosinophils % 4.4 %; Hematocrit 32.9 % (35.3-44.9); Hemoglobin 11.4 g/dL (11.5-15.4); Immature Granulocytes % 0.3 % (0-4); Lymphocytes # 2.9 K/mcL (0.6-4.6); Lymphocytes % 41.9 %; Mean Corpuscular HGB Conc 34.7 g/dL (31.6-35.5); Mean Corpuscular Volume 95.4 fL (83.0-100.0); Mean Platelet Volume 10.1 fL (9.4-12.4); Monocytes # 0.4 K/mcL (0.0-1.3); Monocytes % 5.7 %; Neutrophils # 3.2 K/mcL (1.6-8.9); Platelet Count 122 K/mcL (140-400); Red Blood Count 3.45 M/mcL (3.82-4.97); Red Cell Distribution Width 13.2 % (11.5-14.5); White Blood Count 6.9 K/mcL (4.3-11.1)
[2019-04-07] MEDS: Ampicillin/Sulbactam 1,500 MG in 0.9 % Sodium Chloride Mini Bag 100 ML IVPB SCH ×3 (05:30→19:22)
[2019-04-07] MEDS: *HR* Heparin 5,000 UNIT/ML VIAL SQ SCH ×2 (05:31→19:22)
[2019-04-07] MEDS: Insulin LISPRO 300 UNITS/3 ML VIAL SQ SCH ×3 (08:20→18:48)
[2019-04-07] MEDS: Gabapentin 400 MG CAPSULE PO SCH ×3 (08:35→21:41)
[2019-04-07] MEDS: Nystatin POWDER 30 GM BOTTLE TP SCH (21:41)
[2019-04-08] MEDS: *HR* OxyCODONE/APAP 7.5/325 TABLET PO PRN ×2 (00:07→08:53)
[2019-04-08] MEDS: Ampicillin/Sulbactam 1,500 MG in 0.9 % Sodium Chloride Mini Bag 100 ML IVPB SCH ×2 (00:12→06:41)
[2019-04-08] MEDS: *HR* Heparin 5,000 UNIT/ML VIAL SQ SCH (06:40)
[2019-04-08] MEDS: Insulin LISPRO 300 UNITS/3 ML VIAL SQ SCH (07:36)
[2019-04-08 08:02] LABS: Basophils % 0.6 %; Eosinophils # 0.4 K/mcL (0.0-0.6); Eosinophils % 5.3 %; Hematocrit 34.6 % (35.3-44.9); Hemoglobin 11.3 g/dL (11.5-15.4); Immature Granulocytes % 0.3 % (0-4); Lymphocytes # 3.1 K/mcL (0.6-4.6); Lymphocytes % 46.1 %; Mean Corpuscular HGB Conc 32.7 g/dL (31.6-35.5); Mean Corpuscular Hemoglobin 32.8 pg (28.0-33.3); Mean Corpuscular Volume 100.6 fL (83.0-100.0); Mean Platelet Volume 10.3 fL (9.4-12.4); Monocytes # 0.4 K/mcL (0.0-1.3); Monocytes % 5.6 %; Neutrophils # 2.9 K/mcL (1.6-8.9); Platelet Count 137 K/mcL (140-400); Red Blood Count 3.44 M/mcL (3.82-4.97); Red Cell Distribution Width 13.2 % (11.5-14.5); Segmented Neutrophils % 42.1 %; White Blood Count 6.8 K/mcL (4.3-11.1)
[2019-04-08 08:13] LABS: Calcium 9.2 mg/dL (8.6-10.3); Potassium 3.9 mEq/L (3.5-5.1)
[2019-04-08] MEDS: Nystatin POWDER 30 GM BOTTLE TP SCH (08:53)
[2019-04-08] MEDS: Gabapentin 400 MG CAPSULE PO SCH (08:53)
[2019-04-08 11:00] VITALS: BP 107/63
== END 2019-04-08 12:20 | disposition home or self-care (01) | DRG 603 ==
LOC: 3ANU 11:11 → EMEROOARM 11:11 → 3ANU 18:02 → SUATTDRO 04-07 11:51
PROVIDERS: ADMIT Internal Medicine; ATTEND Internal Medicine

== ENCOUNTER 2019-05-20 09:03 | Observation (INO) ==
[2019-05-20 10:05] LABS: Basophils % 0.2 %; Eosinophils # 0.2 K/mcL (0.0-0.6); Eosinophils % 2.1 %; Hematocrit 37.8 % (35.3-44.9); Hemoglobin 12.5 g/dL (11.5-15.4); Immature Granulocytes % 0.4 % (0-4); Lymphocytes # 2.4 K/mcL (0.6-4.6); Lymphocytes % 22.9 %; Mean Corpuscular HGB Conc 33.1 g/dL (31.6-35.5); Mean Corpuscular Hemoglobin 32.3 pg (28.0-33.3); Mean Corpuscular Volume 97.7 fL (83.0-100.0); Mean Platelet Volume 9.3 fL (9.4-12.4); Monocytes # 0.5 K/mcL (0.0-1.3); Monocytes % 4.8 %; Neutrophils # 7.2 K/mcL (1.6-8.9); Platelet Count 132 K/mcL (140-400); Red Blood Count 3.87 M/mcL (3.82-4.97); Segmented Neutrophils % 69.6 %; White Blood Count 10.3 K/mcL (4.3-11.1)
[2019-05-20 10:12] LABS: INR 1.1; Prothrombin Time 12.7 Seconds (9.4-12.1)
[2019-05-20 10:14] LABS: Activated Partial Thrombo Time 30.2 Seconds (26.0-36.0)
[2019-05-20 10:33] LABS: BUN/Creatinine Ratio 22 (6-26); Blood Urea Nitrogen 23 mg/dL (8-23); Calcium 8.9 mg/dL (8.6-10.3); Carbon Dioxide 24 mEq/L (23-29); Chloride 106 mEq/L (98-107); Glucose 95 mg/dL (70-105); Osmolality,Calculated 293 (280-300); Potassium 3.9 mEq/L (3.5-5.1); Sodium 140 mEq/L (136-145); Troponin I < 0.03 ng/mL (< 0.04); eGFR For African Americans > 60 (> 60); eGFR For Non-African Americans 52 (> 60)
[2019-05-20] MEDS ORDERED: Naloxone 0.4 MG/ML INJ IVP PRN (12:13)
[2019-05-20] MEDS ORDERED: Ondansetron 4 MG/2 ML VIAL IVP PRN (12:13)
[2019-05-20] MEDS ORDERED: Acetaminophen 325 MG TABLET PO PRN (12:13)
[2019-05-20] MEDS ORDERED: *HR* Dextrose 50 % in Water (Syg) 50 ML SYRINGE IVP PRN (12:24)
[2019-05-20] MEDS ORDERED: Dextrose Gel 15 GM/37.5 ML TUBE PO PRN ×2 (12:24)
[2019-05-20] MEDS ORDERED: D5% in Water 1,000 ML IVC PRN (12:24)
[2019-05-20] MEDS ORDERED: *HR* Heparin 5,000 UNIT/ML VIAL SQ SCH (14:00)
[2019-05-20] MEDS ORDERED: Insulin LISPRO 300 UNITS/3 ML VIAL SQ SCH ×2 (16:30→21:00)
[2019-05-20] MEDS ORDERED: Perflutren Lipid Microsphere 1.3 ML in 0.9 % Sodium Chloride 8.7 ML IVP ONE (20:45)
[2019-05-20] MEDS ORDERED: Nystatin POWDER 30 GM BOTTLE TP SCH (21:15)
[2019-05-21 05:11] LABS: Basophils % 0.4 %; Eosinophils # 0.2 K/mcL (0.0-0.6); Eosinophils % 2.3 %; Hematocrit 35.5 % (35.3-44.9); Immature Granulocytes % 0.4 % (0-4); Lymphocytes # 2.6 K/mcL (0.6-4.6); Lymphocytes % 28.7 %; Mean Corpuscular HGB Conc 33.8 g/dL (31.6-35.5); Mean Corpuscular Hemoglobin 32.1 pg (28.0-33.3); Mean Corpuscular Volume 94.9 fL (83.0-100.0); Mean Platelet Volume 9.9 fL (9.4-12.4); Monocytes # 0.5 K/mcL (0.0-1.3); Neutrophils # 5.7 K/mcL (1.6-8.9); Platelet Count 151 K/mcL (140-400); Red Blood Count 3.74 M/mcL (3.82-4.97); Red Cell Distribution Width 12.8 % (11.5-14.5); Segmented Neutrophils % 63.2 %
[2019-05-21 05:27] LABS: BUN/Creatinine Ratio 21 (6-26); Blood Urea Nitrogen 20 mg/dL (8-23); Calcium 9.1 mg/dL (8.6-10.3); Carbon Dioxide 25 mEq/L (23-29); Chloride 108 mEq/L (98-107); Chol/HDL Ratio 2.8 (0-4.9); Cholesterol 120 mg/dL (< 200); Glucose 115 mg/dL (70-105); HDL Cholesterol 43 mg/dL (40-59); LDL Cholesterol,Calculated 63 mg/dL (0-99); Magnesium 1.8 mg/dL (1.6-2.6); Osmolality,Calculated 294 (280-300); Phosphorous 3.2 mg/dL (2.7-4.5); Sodium 140 mEq/L (136-145); Triglycerides 68 mg/dL (< 150); eGFR For African Americans > 60 (> 60); eGFR For Non-African Americans 57 (> 60)
[2019-05-21 07:47] VITALS: BP 160/70
[2019-05-21] MEDS ORDERED: Regadenoson 0.4 MG/5 ML SYRINGE IVP ONE (08:13)
[2019-05-21 08:33] LABS: Estimated Average Glucose 117 mg/dl
[2019-05-21] MEDS ORDERED: Aspirin Enteric Coated 81 MG Tablet PO SCH (09:00)
== END 2019-05-21 13:15 | disposition home or self-care (01) ==
LOC: EMEROOARM 09:03 → 3BNU 09:03
PROVIDERS: ADMIT Internal Medicine; ATTEND Internal Medicine

== ENCOUNTER 2020-05-09 08:20 | Inpatient (IN) ==
[2020-05-09] MEDS ORDERED: Isovue-370 500 ML BOTTLE IVP ONE (08:26)
[2020-05-09 08:58] LABS: Basophils # 0.1 K/mcL (0.0-0.2); Basophils % 0.5 %; Eosinophils # 0.4 K/mcL (0.0-0.6); Eosinophils % 4.3 %; Immature Granulocytes % 0.2 % (0-4); Lymphocytes # 3.1 K/mcL (0.6-4.6); Lymphocytes % 30.4 %; Mean Corpuscular HGB Conc 33.3 g/dL (31.6-35.5); Mean Corpuscular Hemoglobin 30.7 pg (28.0-33.3); Mean Corpuscular Volume 92.2 fL (83.0-100.0); Mean Platelet Volume 10.2 fL (9.4-12.4); Monocytes # 0.6 K/mcL (0.0-1.3); Neutrophils # 5.9 K/mcL (1.6-8.9); Platelet Count 153 K/mcL (140-400); Red Blood Count 4.23 M/mcL (3.82-4.97); Red Cell Distribution Width 13.2 % (11.5-14.5); Segmented Neutrophils % 58.6 %; White Blood Count 10.2 K/mcL (4.3-11.1)
[2020-05-09 09:19] LABS: Calcium 8.7 mg/dL (8.6-10.3); Potassium 4.2 mEq/L (3.5-5.1)
[2020-05-09] MEDS ORDERED: 0.9 % Sodium Chloride 1,000 ML IVC ONE (09:49)
[2020-05-09 10:49] LABS: Albumin 3.4 g/dL (3.5-5.7); Albumin/Globulin Ratio 1.1 (1.1-2.2); Bilirubin,Direct 0.2 mg/dL (0.0-0.2); Bilirubin,Indirect 0.6 mg/dL (0.0-1.0); Bilirubin,Total 0.8 mg/dL (0.3-1.0); Globulin 3.1 g/dL (2.4-3.5); Total Protein 6.5 g/dL (6.4-8.9)
[2020-05-09 11:05] LABS: Bacteria,Urine Few per hpf (None-Few); Bilirubin,Urine Negative (Negative); Blood,Urine Negative (Negative); Clarity,Urine Clear (Clear); Color,Urine Light-Yellow (Yellow); Glucose,Urine (UA) Normal (Normal); Ketones,Urine Negative (Negative); Leukocyte Esterase,Urine Moderate (Negative); Nitrite,Urine Positive (Negative); PH,Urine 5.5 pH Units (5.0-8.0); Protein,Urine Negative (Neg-Trace); RBC,Urine 0-3 per hpf (0-3); Specific Gravity,Urine 1.008 (1.010-1.025); Squamous Epithelial Cell,Urine Few per hpf (None-Few); Urobilinogen,Urine Normal (Normal)
[2020-05-09] MEDS ORDERED: cefTRIAXone 1,000 MG in 0.9 % Sodium Chloride Mini Bag 100 ML IVPB ONE (11:10)
[2020-05-09] MEDS ORDERED: Naloxone 0.4 MG/ML INJ IVP PRN (11:31)
[2020-05-09] MEDS ORDERED: Acetaminophen 325 MG TABLET PO PRN (11:31)
[2020-05-09] MEDS ORDERED: D5% in Water 1,000 ML IVC PRN (11:35)
[2020-05-09] MEDS ORDERED: *HR* Dextrose 50 % in Water (Vial) 50 ML VIAL IVP PRN (11:35)
[2020-05-09] MEDS ORDERED: Dextrose Gel 15 GM/37.5 ML TUBE PO PRN ×2 (11:35)
[2020-05-09 12:27] LABS: Thyroid Stimulating Hormone 4.216 mcIU/mL (0.340-5.600)
[2020-05-09] MEDS: Insulin LISPRO 300 UNITS/3 ML VIAL SUBQ SCH ×2 (16:19→20:41)
[2020-05-09 18:17] LABS: Sodium, Urine 66.4 mEq/L
[2020-05-09] MEDS: *HR* OxyCODONE Immed Rel 5 MG TABLET PO PRN (20:54)
[2020-05-09] MEDS: *HR* Heparin 5,000 UNIT/ML VIAL SQ SCH (20:55)
[2020-05-09] MEDS: Nystatin Cream 15 GM TUBE TP SCH (20:55)
[2020-05-10] MEDS: *HR* OxyCODONE Immed Rel 5 MG TABLET PO PRN ×3 (04:07→21:15)
[2020-05-10 05:27] LABS: Hematocrit 36.9 % (35.3-44.9); Hemoglobin 12.2 g/dL (11.5-15.4); Mean Corpuscular HGB Conc 33.1 g/dL (31.6-35.5); Mean Corpuscular Hemoglobin 30.2 pg (28.0-33.3); Mean Corpuscular Volume 91.3 fL (83.0-100.0); Mean Platelet Volume 10.4 fL (9.4-12.4); Platelet Count 153 K/mcL (140-400); Red Blood Count 4.04 M/mcL (3.82-4.97); Red Cell Distribution Width 13.2 % (11.5-14.5)
[2020-05-10] MEDS: Levothyroxine 25 MCG TABLET PO SCH (05:33)
[2020-05-10] MEDS: *HR* Heparin 5,000 UNIT/ML VIAL SQ SCH ×3 (05:33→21:15)
[2020-05-10 05:44] LABS: Calcium 8.8 mg/dL (8.6-10.3); Potassium 4.3 mEq/L (3.5-5.1)
[2020-05-10] MEDS: Insulin LISPRO 300 UNITS/3 ML VIAL SUBQ SCH ×4 (06:58→21:08)
[2020-05-10 07:32] LABS: Estimated Average Glucose 111 mg/dl; Hemoglobin A1C 5.5 %
[2020-05-10] MEDS: Nystatin Cream 15 GM TUBE TP SCH ×2 (10:27→21:15)
[2020-05-10] MEDS: cefTRIAXone 2,000 MG in Water for inj. (sterile) 20 ML IVP SCH (11:54)
[2020-05-10] MEDS ORDERED: 0.9 % Sodium Chloride 500 ML IVC SCH ×2 (17:30→18:00)
[2020-05-11 05:20] LABS: Hematocrit 39.1 % (35.3-44.9); Hemoglobin 12.8 g/dL (11.5-15.4); Mean Corpuscular HGB Conc 32.7 g/dL (31.6-35.5); Mean Corpuscular Hemoglobin 29.9 pg (28.0-33.3); Mean Corpuscular Volume 91.4 fL (83.0-100.0); Platelet Count 142 K/mcL (140-400); Red Blood Count 4.28 M/mcL (3.82-4.97); Red Cell Distribution Width 12.9 % (11.5-14.5); White Blood Count 6.9 K/mcL (4.3-11.1)
[2020-05-11 05:38] LABS: Calcium 9.4 mg/dL (8.6-10.3); Potassium 4.3 mEq/L (3.5-5.1)
[2020-05-11] MEDS: *HR* Heparin 5,000 UNIT/ML VIAL SQ SCH ×3 (05:49→20:49)
[2020-05-11] MEDS: Levothyroxine 25 MCG TABLET PO SCH (05:49)
[2020-05-11] MEDS: Insulin LISPRO 300 UNITS/3 ML VIAL SUBQ SCH ×5 (07:17→20:29)
[2020-05-11] MEDS: *HR* OxyCODONE Immed Rel 5 MG TABLET PO PRN ×2 (08:28→19:35)
[2020-05-11] MEDS: Loratadine 10 MG TABLET PO SCH (08:28)
[2020-05-11] MEDS: Nystatin Cream 15 GM TUBE TP SCH ×2 (08:28→19:36)
[2020-05-11] MEDS: cefTRIAXone 2,000 MG in Water for inj. (sterile) 20 ML IVP SCH (11:34)
[2020-05-11] MEDS: Gabapentin 400 MG CAPSULE PO SCH ×3 (12:55→19:35)
[2020-05-12] MEDS: Levothyroxine 25 MCG TABLET PO SCH (05:02)
[2020-05-12] MEDS: *HR* Heparin 5,000 UNIT/ML VIAL SQ SCH (05:03)
[2020-05-12 06:38] LABS: Hematocrit 38.8 % (35.3-44.9); Hemoglobin 12.8 g/dL (11.5-15.4); Mean Corpuscular Hemoglobin 30.3 pg (28.0-33.3); Mean Corpuscular Volume 91.9 fL (83.0-100.0); Mean Platelet Volume 10.4 fL (9.4-12.4); Platelet Count 151 K/mcL (140-400); Red Blood Count 4.22 M/mcL (3.82-4.97); White Blood Count 8.1 K/mcL (4.3-11.1)
[2020-05-12 07:00] LABS: Calcium 9.1 mg/dL (8.6-10.3); Potassium 4.5 mEq/L (3.5-5.1)
[2020-05-12] MEDS: Insulin LISPRO 300 UNITS/3 ML VIAL SUBQ SCH (08:34)
[2020-05-12] MEDS: Gabapentin 400 MG CAPSULE PO SCH (08:55)
[2020-05-12] MEDS: Nystatin Cream 15 GM TUBE TP SCH (08:56)
[2020-05-12] MEDS: Loratadine 10 MG TABLET PO SCH (08:56)
[2020-05-12 15:11] VITALS: BP 136/77
[2020-05-12] MEDS ORDERED: Sulfamethoxazole/Trimeth DS 1 EACH TABLET PO SCH (21:00)
== END 2020-05-12 16:10 | disposition home health service (06) | DRG 565 ==
LOC: 3BNU 08:20 → EMEROOARM 08:20 → 3BNU 12:49
PROVIDERS: ADMIT Student in an Organized Health Care Education/Training Program; ATTEND Student in an Organized Health Care Education/Training Program

== ENCOUNTER 2020-05-17 16:29 | Inpatient (IN) ==
[2020-05-17] MEDS ORDERED: Naloxone 0.4 MG/ML INJ IVP ONE (16:38)
[2020-05-17] MEDS ORDERED: 0.9 % Sodium Chloride 1,000 ML IVC ONE ×3 (16:42→17:51)
[2020-05-17] MEDS ORDERED: 0.9 % Sodium Chloride 250 ML ONE (17:00)
[2020-05-17] MEDS ORDERED: *HR* Norepinephrine 4 MG/4 ML VIAL IVC ONE (17:00)
[2020-05-17] MEDS ORDERED: Piperacillin/Tazobactam 3.375 GM in 0.9 % Sodium Chloride Mini Bag 100 ML IVPB ONE (17:34)
[2020-05-17] MEDS ORDERED: Vancomycin 2,000 MG/520 ML IV.SOLN IVPB ONE (17:34)
[2020-05-17] MEDS: Norepinephrine 4 MG/254 ML IV.SOLN IVC SCH (17:38)
[2020-05-17 17:43] LABS: Basophils # 0.1 K/mcL (0.0-0.2); Basophils % 0.4 %; Eosinophils # 0.3 K/mcL (0.0-0.6); Eosinophils % 2.4 %; Hematocrit 42.8 % (35.3-44.9); Immature Granulocytes % 0.3 % (0-4); Lymphocytes # 3.5 K/mcL (0.6-4.6); Lymphocytes % 28.1 %; Mean Corpuscular HGB Conc 33.6 g/dL (31.6-35.5); Mean Corpuscular Hemoglobin 31.4 pg (28.0-33.3); Mean Corpuscular Volume 93.4 fL (83.0-100.0); Monocytes # 0.7 K/mcL (0.0-1.3); Monocytes % 5.3 %; Neutrophils # 7.9 K/mcL (1.6-8.9); Platelet Count 180 K/mcL (140-400); Red Blood Count 4.58 M/mcL (3.82-4.97); Red Cell Distribution Width 12.9 % (11.5-14.5); Segmented Neutrophils % 63.5 %
[2020-05-17 17:44] LABS: Hemoglobin 14.4 g/dL (11.5-15.4); White Blood Count 12.5 K/mcL (4.3-11.1)
[2020-05-17] MEDS ORDERED: Piperacillin/Tazobactam 3.375 GM in Water for inj. (sterile) 20 ML IVP ONE (17:46)
[2020-05-17] MEDS ORDERED: Water for inj. (sterile) 20 ML IV ONE (17:48)
[2020-05-17 17:51] LABS: INR 1.2
[2020-05-17 17:51] LABS: Amphetamine Screen,Urine Negative ng/mL (Cutoff=1000); Barbiturate Screen,Urine Negative ng/mL (Cutoff=200); Benzodiazepines Screen,Urine Negative ng/mL (Cutoff=200); Cannabinoid Screen,Urine Negative ng/mL (Cutoff = 50); Cocaine Screen,Urine Negative ng/mL (Cutoff= 300); Opiate Screen,Urine Positive ng/mL (Cutoff=300); Phencyclidine Screen,Urine Negative ng/mL (Cutoff=25)
[2020-05-17 17:54] LABS: Activated Partial Thrombo Time 29.8 Seconds (26.0-36.0)
[2020-05-17 17:56] LABS: Bacteria,Urine Few per hpf (None-Few); Bilirubin,Urine Negative (Negative); Blood,Urine Negative (Negative); Clarity,Urine Turbid (Clear); Color,Urine Yellow (Yellow); Glucose,Urine (UA) Normal (Normal); Hyaline Casts,Urine Many per lpf (None Seen); Ketones,Urine Negative (Negative); Leukocyte Esterase,Urine Large (Negative); Mucus,Urine Few per lpf (None-Few); Nitrite,Urine Negative (Negative); PH,Urine 5.5 pH Units (5.0-8.0); Protein,Urine Trace mg/dL (Neg-Trace); Specific Gravity,Urine 1.018 (1.010-1.025); Squamous Epithelial Cell,Urine Moderate per hpf (None-Few); Urobilinogen,Urine Normal (Normal); WBC,Urine 30-50 per hpf (0-3)
[2020-05-17 18:09] LABS: Alanine Aminotransferase 11 Units/L (7-52); Albumin 3.5 g/dL (3.5-5.7); Albumin/Globulin Ratio 0.9 (1.1-2.2); Alkaline Phosphatase 125 Units/L (34-104); Aspartate Amino Transferase 19 Units/L (13-39); BUN/Creatinine Ratio 13 (6-26); Bilirubin,Direct 0.2 mg/dL (0.0-0.2); Bilirubin,Indirect 0.4 mg/dL (0.0-1.0); Bilirubin,Total 0.6 mg/dL (0.3-1.0); Blood Urea Nitrogen 96 mg/dL (8-23); Calcium 9.5 mg/dL (8.6-10.3); Carbon Dioxide 22 mEq/L (23-29); Chloride 94 mEq/L (98-107); Creatine Kinase 235 Units/L (30-223); Ethanol < 10 mg/dL (Less than 10); Globulin 3.8 g/dL (2.4-3.5); Glucose 101 mg/dL (70-105); Osmolality,Calculated 304 (280-300); Potassium 4.6 mEq/L (3.5-5.1); Sodium 132 mEq/L (136-145); Total Protein 7.3 g/dL (6.4-8.9); Troponin I < 0.03 ng/mL (< 0.04); eGFR For African Americans 7 (> 60); eGFR For Non-African Americans 6 (> 60)
[2020-05-17 18:23] LABS: Thyroid Stimulating Hormone 1.829 mcIU/mL (0.340-5.600)
[2020-05-17 18:49] LABS: Adenovirus Not Detected (Not Detect); Bordetella Pertussis Not Detected (Not Detect); Chlamydophila pneumoniae Not Detected (Not Detect); Coronavirus 229E Not Detected (Not Detect); Coronavirus HKU1 Not Detected (Not Detect); Coronavirus NL63 Not Detected (Not Detect); Coronavirus OC43 Not Detected (Not Detect); Human Metapneumovirus Not Detected (Not Detect); Human Rhinovirus/Enterovirus Not Detected (Not Detect); Influenza A Subtype 2009 H1 Not Detected (Not Detect); Influenza B Not Detected (Not Detect); Mycoplasma pneumoniae Not Detected (Not Detect); Parainfluenza Virus 1 Not Detected (Not Detect); Parainfluenza Virus 2 Not Detected (Not Detect); Parainfluenza Virus 3 Not Detected (Not Detect); Parainfluenza Virus 4 Not Detected (Not Detect); Respiratory Syncytial Virus Not Detected (Not Detect); SARS-CoV-2 Not Detected (Not Detect)
[2020-05-17] MEDS ORDERED: Naloxone 0.4 MG/ML INJ IVP PRN (20:52)
[2020-05-17] MEDS ORDERED: 0.9 % Sodium Chloride 1,000 ML IVC SCH (21:00)
[2020-05-17 21:39] LABS: C-Reactive Protein 28 mg/L (Less than 10); Lipase 32 Units/L (11-82)
[2020-05-17] MEDS: cefTRIAXone 2,000 MG in Water for inj. (sterile) 20 ML IVP SCH (21:41)
[2020-05-17] MEDS: Nystatin POWDER 30 GM BOTTLE TP SCH (21:42)
[2020-05-17] MEDS ORDERED: Dextrose Gel 15 GM/37.5 ML TUBE PO PRN ×2 (21:50)
[2020-05-17] MEDS ORDERED: D5% in Water 1,000 ML IVC PRN (21:50)
[2020-05-17] MEDS ORDERED: *HR* Dextrose 50 % in Water (Vial) 50 ML VIAL IVP PRN (21:50)
[2020-05-17] MEDS: Insulin LISPRO 300 UNITS/3 ML VIAL SUBQ SCH (22:28)
[2020-05-17] MEDS: 0.9 % Sodium Chloride 1,000 ML IVC SCH (22:31)
[2020-05-17 23:41] LABS: Sodium, Urine 66.3 mEq/L
[2020-05-18 00:33] LABS: Calcium 8.7 mg/dL (8.6-10.3)
[2020-05-18 00:56] LABS: BUN/Creatinine Ratio 14 (6-26); Blood Urea Nitrogen 92 mg/dL (8-23); Calcium 8.8 mg/dL (8.6-10.3); Carbon Dioxide 19 mEq/L (23-29); Chloride 101 mEq/L (98-107); Glucose 119 mg/dL (70-105); Magnesium 1.6 mg/dL (1.6-2.6); Osmolality,Calculated 303 (280-300); Phosphorous 6.8 mg/dL (2.7-4.5); Potassium 4.8 mEq/L (3.5-5.1); Salicylate < 2.5 mg/dL (15.0-30.0); Sodium 132 mEq/L (136-145); eGFR For African Americans 8 (> 60); eGFR For Non-African Americans 6 (> 60)
[2020-05-18 03:41] LABS: Basophils # 0.1 K/mcL (0.0-0.2); Basophils % 0.4 %; Eosinophils # 0.3 K/mcL (0.0-0.6); Eosinophils % 2.6 %; Hematocrit 38.7 % (35.3-44.9); Immature Granulocytes % 0.2 % (0-4); Lymphocytes # 3.3 K/mcL (0.6-4.6); Mean Corpuscular HGB Conc 33.6 g/dL (31.6-35.5); Mean Corpuscular Hemoglobin 31.3 pg (28.0-33.3); Mean Corpuscular Volume 93.3 fL (83.0-100.0); Mean Platelet Volume 9.7 fL (9.4-12.4); Monocytes # 0.8 K/mcL (0.0-1.3); Neutrophils # 7.3 K/mcL (1.6-8.9); Platelet Count 168 K/mcL (140-400); Red Blood Count 4.15 M/mcL (3.82-4.97); Red Cell Distribution Width 13.1 % (11.5-14.5); Segmented Neutrophils % 61.8 %; White Blood Count 11.8 K/mcL (4.3-11.1)
[2020-05-18 03:44] LABS: VBG Ionized Calcium 1.08 mmol/L (1.15-1.35)
[2020-05-18 04:05] LABS: Calcium 8.6 mg/dL (8.6-10.3); Magnesium 1.6 mg/dL (1.6-2.6); Phosphorous 6.7 mg/dL (2.7-4.5); Potassium 4.8 mEq/L (3.5-5.1)
[2020-05-18] MEDS: Norepinephrine 4 MG/254 ML IV.SOLN IVC SCH ×2 (04:55→14:56)
[2020-05-18] MEDS: Calcium Gluconate 1gm/50mL 1 GM/50 ML BAG IVPB SCH ×2 (06:11→08:05)
[2020-05-18] MEDS: Levothyroxine 25 MCG TABLET PO SCH (06:16)
[2020-05-18] MEDS: Insulin LISPRO 300 UNITS/3 ML VIAL SUBQ SCH ×4 (07:52→19:47)
[2020-05-18] MEDS: Nystatin POWDER 30 GM BOTTLE TP SCH ×3 (08:07→19:48)
[2020-05-18] MEDS: 0.9 % Sodium Chloride 1,000 ML IVC SCH (09:26)
[2020-05-18] MEDS ORDERED: Acetaminophen 325 MG TABLET PO ONE (11:32)
[2020-05-18] MEDS: cefTRIAXone 2,000 MG in Water for inj. (sterile) 20 ML IVP SCH (19:47)
[2020-05-18] MEDS: *HR* Heparin 5,000 UNIT/ML VIAL SQ SCH (21:26)
[2020-05-19] MEDS: Norepinephrine 4 MG/254 ML IV.SOLN IVC SCH (01:00)
[2020-05-19 04:14] LABS: Basophils # 0.1 K/mcL (0.0-0.2); Basophils % 0.6 %; Eosinophils # 0.4 K/mcL (0.0-0.6); Eosinophils % 5.1 %; Hemoglobin 12.4 g/dL (11.5-15.4); Immature Granulocytes % 0.5 % (0-4); Lymphocytes % 34.7 %; Mean Corpuscular HGB Conc 32.6 g/dL (31.6-35.5); Mean Corpuscular Hemoglobin 30.2 pg (28.0-33.3); Mean Corpuscular Volume 92.7 fL (83.0-100.0); Mean Platelet Volume 10.3 fL (9.4-12.4); Monocytes # 0.6 K/mcL (0.0-1.3); Monocytes % 7.5 %; Neutrophils # 4.4 K/mcL (1.6-8.9); Platelet Count 157 K/mcL (140-400); Red Cell Distribution Width 13.2 % (11.5-14.5); Segmented Neutrophils % 51.6 %; White Blood Count 8.5 K/mcL (4.3-11.1)
[2020-05-19 04:29] LABS: Calcium 9.6 mg/dL (8.6-10.3); Magnesium 1.6 mg/dL (1.6-2.6); Phosphorous 4.3 mg/dL (2.7-4.5); Potassium 4.5 mEq/L (3.5-5.1)
[2020-05-19] MEDS: *HR* Heparin 5,000 UNIT/ML VIAL SQ SCH ×3 (05:18→21:38)
[2020-05-19] MEDS: Levothyroxine 25 MCG TABLET PO SCH (05:18)
[2020-05-19] MEDS: Insulin LISPRO 300 UNITS/3 ML VIAL SUBQ SCH ×4 (09:05→21:36)
[2020-05-19] MEDS: Nystatin POWDER 30 GM BOTTLE TP SCH ×3 (09:05→21:39)
[2020-05-19] MEDS: *HR* OxyCODONE/APAP 10/325 TABLET PO PRN (12:44)
[2020-05-19] MEDS: cefTRIAXone 2,000 MG in Water for inj. (sterile) 20 ML IVP SCH (21:39)
[2020-05-20 01:11] LABS: Basophils % 0.4 %; Eosinophils # 0.3 K/mcL (0.0-0.6); Hematocrit 35.5 % (35.3-44.9); Hemoglobin 11.5 g/dL (11.5-15.4); Immature Granulocytes % 0.2 % (0-4); Lymphocytes # 2.2 K/mcL (0.6-4.6); Lymphocytes % 41.5 %; Mean Corpuscular HGB Conc 32.4 g/dL (31.6-35.5); Mean Corpuscular Hemoglobin 29.6 pg (28.0-33.3); Mean Corpuscular Volume 91.5 fL (83.0-100.0); Mean Platelet Volume 10.3 fL (9.4-12.4); Monocytes # 0.4 K/mcL (0.0-1.3); Monocytes % 8.1 %; Neutrophils # 2.3 K/mcL (1.6-8.9); Platelet Count 121 K/mcL (140-400); Red Blood Count 3.88 M/mcL (3.82-4.97); Red Cell Distribution Width 13.1 % (11.5-14.5); Segmented Neutrophils % 44.8 %; White Blood Count 5.2 K/mcL (4.3-11.1)
[2020-05-20 01:32] LABS: Calcium 9.7 mg/dL (8.6-10.3); Magnesium 1.4 mg/dL (1.6-2.6); Potassium 4.5 mEq/L (3.5-5.1)
[2020-05-20] MEDS: *HR* Heparin 5,000 UNIT/ML VIAL SQ SCH ×3 (05:22→21:57)
[2020-05-20] MEDS: Levothyroxine 25 MCG TABLET PO SCH ×2 (05:23→06:21)
[2020-05-20] MEDS: Ondansetron 4 MG/2 ML VIAL IVP PRN ×2 (05:29→17:10)
[2020-05-20] MEDS: Insulin LISPRO 300 UNITS/3 ML VIAL SUBQ SCH ×4 (08:26→21:53)
[2020-05-20] MEDS: Nystatin POWDER 30 GM BOTTLE TP SCH ×3 (08:27→21:53)
[2020-05-20] MEDS ORDERED: *HR* Promethazine 25 MG/ML VIAL IM ONE (09:41)
[2020-05-20] MEDS: *HR* OxyCODONE/APAP 10/325 TABLET PO PRN (10:41)
[2020-05-20] MEDS ORDERED: Sennosides/Docusate Sodium TABLET PO SCH (21:00)
[2020-05-20] MEDS: cefTRIAXone 2,000 MG in Water for inj. (sterile) 20 ML IVP SCH (21:58)
[2020-05-21] MEDS: Ondansetron 4 MG/2 ML VIAL IVP PRN ×2 (03:48→14:24)
[2020-05-21] MEDS: *HR* OxyCODONE/APAP 10/325 TABLET PO PRN ×3 (03:48→20:46)
[2020-05-21] MEDS: Levothyroxine 25 MCG TABLET PO SCH (05:31)
[2020-05-21] MEDS: *HR* Heparin 5,000 UNIT/ML VIAL SQ SCH ×3 (05:31→20:53)
[2020-05-21 05:36] LABS: Basophils % 0.7 %; Eosinophils # 0.2 K/mcL (0.0-0.6); Eosinophils % 3.1 %; Hematocrit 36.6 % (35.3-44.9); Hemoglobin 12.3 g/dL (11.5-15.4); Immature Granulocytes % 0.5 % (0-4); Lymphocytes # 1.5 K/mcL (0.6-4.6); Lymphocytes % 27.8 %; Mean Corpuscular HGB Conc 33.6 g/dL (31.6-35.5); Mean Corpuscular Hemoglobin 30.6 pg (28.0-33.3); Mean Platelet Volume 9.8 fL (9.4-12.4); Monocytes # 0.3 K/mcL (0.0-1.3); Monocytes % 5.9 %; Neutrophils # 3.4 K/mcL (1.6-8.9); Platelet Count 136 K/mcL (140-400); Red Blood Count 4.02 M/mcL (3.82-4.97); Red Cell Distribution Width 12.8 % (11.5-14.5); White Blood Count 5.5 K/mcL (4.3-11.1)
[2020-05-21 05:54] LABS: Calcium 10.5 mg/dL (8.6-10.3); Magnesium 1.6 mg/dL (1.6-2.6); Potassium 4.3 mEq/L (3.5-5.1)
[2020-05-21] MEDS: Insulin LISPRO 300 UNITS/3 ML VIAL SUBQ SCH ×3 (07:33→16:39)
[2020-05-21] MEDS ORDERED: *HR* Dextrose 50 % in Water (Vial) 50 ML VIAL IVP PRN (08:57)
[2020-05-21] MEDS ORDERED: D5% in Water 1,000 ML IVC PRN (08:57)
[2020-05-21] MEDS ORDERED: Dextrose Gel 15 GM/37.5 ML TUBE PO PRN ×2 (08:57)
[2020-05-21] MEDS ORDERED: Naloxone 0.4 MG/ML INJ IVP PRN (08:57)
[2020-05-21] MEDS: polyethylene glycoL 3350 17 GM POWD.PACK PO SCH (09:16)
[2020-05-21] MEDS: Nystatin POWDER 30 GM BOTTLE TP SCH ×3 (09:16→20:47)
[2020-05-21 11:16] LABS: Estimated Average Glucose 105 mg/dl; Hemoglobin A1C 5.3 %
[2020-05-21] MEDS ORDERED: Insulin LISPRO 300 UNITS/3 ML VIAL SUBQ SCH (21:00)
[2020-05-21] MEDS ORDERED: cefTRIAXone 2,000 MG in Water for inj. (sterile) 20 ML IVP SCH (21:00)
[2020-05-22] MEDS: Levothyroxine 25 MCG TABLET PO SCH (06:14)
[2020-05-22] MEDS: *HR* Heparin 5,000 UNIT/ML VIAL SQ SCH ×2 (06:14→14:41)
[2020-05-22 07:20] LABS: Basophils % 0.6 %; Eosinophils # 0.2 K/mcL (0.0-0.6); Eosinophils % 3.3 %; Hematocrit 39.4 % (35.3-44.9); Hemoglobin 13.4 g/dL (11.5-15.4); Immature Granulocytes % 0.3 % (0-4); Lymphocytes # 2.9 K/mcL (0.6-4.6); Lymphocytes % 44.5 %; Mean Corpuscular Hemoglobin 31.4 pg (28.0-33.3); Mean Corpuscular Volume 92.3 fL (83.0-100.0); Mean Platelet Volume 10.3 fL (9.4-12.4); Monocytes # 0.4 K/mcL (0.0-1.3); Monocytes % 6.2 %; Platelet Count 142 K/mcL (140-400); Red Blood Count 4.27 M/mcL (3.82-4.97); Segmented Neutrophils % 45.1 %; White Blood Count 6.6 K/mcL (4.3-11.1)
[2020-05-22] MEDS: Insulin LISPRO 300 UNITS/3 ML VIAL SUBQ SCH ×3 (07:35→16:46)
[2020-05-22 07:48] LABS: Calcium 10.5 mg/dL (8.6-10.3); Magnesium 1.4 mg/dL (1.6-2.6); Potassium 4.5 mEq/L (3.5-5.1)
[2020-05-22] MEDS: Nystatin POWDER 30 GM BOTTLE TP SCH ×3 (09:29→19:44)
[2020-05-22] MEDS: polyethylene glycoL 3350 17 GM POWD.PACK PO SCH (09:33)
[2020-05-22] MEDS: Sennosides/Docusate Sodium TABLET PO SCH ×2 (10:29→19:43)
[2020-05-22] MEDS: *HR* OxyCODONE/APAP 10/325 TABLET PO PRN (10:29)
[2020-05-23] MEDS: *HR* Heparin 5,000 UNIT/ML VIAL SQ SCH ×4 (04:35→22:38)
[2020-05-23] MEDS: Levothyroxine 25 MCG TABLET PO SCH (04:42)
[2020-05-23] MEDS ORDERED: 0.9 % Sodium Chloride 250 ML IVC SCH (07:00)
[2020-05-23 07:20] LABS: Basophils # 0.1 K/mcL (0.0-0.2); Basophils % 0.7 %; Eosinophils # 0.3 K/mcL (0.0-0.6); Eosinophils % 3.6 %; Hematocrit 41.2 % (35.3-44.9); Hemoglobin 13.8 g/dL (11.5-15.4); Immature Granulocytes % 0.4 % (0-4); Lymphocytes # 2.6 K/mcL (0.6-4.6); Lymphocytes % 35.8 %; Mean Corpuscular HGB Conc 33.5 g/dL (31.6-35.5); Mean Corpuscular Hemoglobin 30.5 pg (28.0-33.3); Mean Corpuscular Volume 91.2 fL (83.0-100.0); Mean Platelet Volume 9.9 fL (9.4-12.4); Monocytes # 0.5 K/mcL (0.0-1.3); Monocytes % 6.5 %; Neutrophils # 3.9 K/mcL (1.6-8.9); Platelet Count 142 K/mcL (140-400); Red Blood Count 4.52 M/mcL (3.82-4.97); White Blood Count 7.3 K/mcL (4.3-11.1)
[2020-05-23 07:35] LABS: Calcium 10.6 mg/dL (8.6-10.3); Magnesium 1.6 mg/dL (1.6-2.6); Potassium 4.4 mEq/L (3.5-5.1)
[2020-05-23] MEDS: Insulin LISPRO 300 UNITS/3 ML VIAL SUBQ SCH ×3 (08:09→17:17)
[2020-05-23] MEDS: Sennosides/Docusate Sodium TABLET PO SCH ×2 (08:58→22:39)
[2020-05-23] MEDS: Nystatin POWDER 30 GM BOTTLE TP SCH ×2 (08:59→15:36)
[2020-05-23] MEDS: polyethylene glycoL 3350 17 GM POWD.PACK PO SCH (08:59)
[2020-05-23] MEDS ORDERED: Bisacodyl 10 MG RECTAL SUPPOSITORY RC ONE (15:38)
[2020-05-24] MEDS: Nystatin POWDER 30 GM BOTTLE TP SCH ×4 (00:37→23:18)
[2020-05-24] MEDS: Ondansetron 4 MG/2 ML VIAL IVP PRN (00:37)
[2020-05-24] MEDS: *HR* OxyCODONE/APAP 10/325 TABLET PO PRN ×2 (00:44→23:17)
[2020-05-24 02:41] LABS: Basophils # 0.1 K/mcL (0.0-0.2); Basophils % 0.6 %; Eosinophils # 0.2 K/mcL (0.0-0.6); Eosinophils % 2.1 %; Hematocrit 37.6 % (35.3-44.9); Hemoglobin 12.9 g/dL (11.5-15.4); Immature Granulocytes % 0.5 % (0-4); Mean Corpuscular HGB Conc 34.3 g/dL (31.6-35.5); Mean Corpuscular Hemoglobin 30.7 pg (28.0-33.3); Mean Corpuscular Volume 89.5 fL (83.0-100.0); Mean Platelet Volume 9.7 fL (9.4-12.4); Monocytes # 0.5 K/mcL (0.0-1.3); Monocytes % 5.6 %; Platelet Count 154 K/mcL (140-400); Red Cell Distribution Width 12.7 % (11.5-14.5); Segmented Neutrophils % 57.2 %; White Blood Count 8.7 K/mcL (4.3-11.1)
[2020-05-24 02:59] LABS: BUN/Creatinine Ratio 28 (6-26); Blood Urea Nitrogen 31 mg/dL (8-23); Calcium 10.3 mg/dL (8.6-10.3); Carbon Dioxide 25 mEq/L (23-29); Chloride 103 mEq/L (98-107); Glucose 87 mg/dL (70-105); Magnesium 1.4 mg/dL (1.6-2.6); Osmolality,Calculated 288 (280-300); Potassium 4.2 mEq/L (3.5-5.1); Sodium 136 mEq/L (136-145); eGFR For African Americans > 60 (> 60); eGFR For Non-African Americans 50 (> 60)
[2020-05-24] MEDS: Levothyroxine 25 MCG TABLET PO SCH (05:15)
[2020-05-24] MEDS: *HR* Heparin 5,000 UNIT/ML VIAL SQ SCH ×3 (05:16→23:15)
[2020-05-24] MEDS: Insulin LISPRO 300 UNITS/3 ML VIAL SUBQ SCH ×3 (09:03→17:03)
[2020-05-24] MEDS: polyethylene glycoL 3350 17 GM POWD.PACK PO SCH (10:02)
[2020-05-24] MEDS: Sennosides/Docusate Sodium TABLET PO SCH ×2 (10:02→23:16)
[2020-05-25 07:16] LABS: Basophils # 0.1 K/mcL (0.0-0.2); Basophils % 0.7 %; Eosinophils # 0.3 K/mcL (0.0-0.6); Eosinophils % 3.5 %; Hematocrit 37.2 % (35.3-44.9); Hemoglobin 12.7 g/dL (11.5-15.4); Immature Granulocytes % 0.5 % (0-4); Lymphocytes # 3.1 K/mcL (0.6-4.6); Lymphocytes % 35.3 %; Mean Corpuscular HGB Conc 34.1 g/dL (31.6-35.5); Mean Corpuscular Hemoglobin 30.7 pg (28.0-33.3); Mean Corpuscular Volume 89.9 fL (83.0-100.0); Mean Platelet Volume 10.1 fL (9.4-12.4); Monocytes # 0.5 K/mcL (0.0-1.3); Monocytes % 5.8 %; Neutrophils # 4.7 K/mcL (1.6-8.9); Platelet Count 159 K/mcL (140-400); Red Blood Count 4.14 M/mcL (3.82-4.97); Red Cell Distribution Width 12.9 % (11.5-14.5); Segmented Neutrophils % 54.2 %; White Blood Count 8.7 K/mcL (4.3-11.1)
[2020-05-25 07:43] LABS: BUN/Creatinine Ratio 27 (6-26); Blood Urea Nitrogen 28 mg/dL (8-23); Calcium 9.9 mg/dL (8.6-10.3); Carbon Dioxide 23 mEq/L (23-29); Chloride 103 mEq/L (98-107); Glucose 81 mg/dL (70-105); Osmolality,Calculated 285 (280-300); Potassium 4.3 mEq/L (3.5-5.1); Sodium 135 mEq/L (136-145); eGFR For African Americans > 60 (> 60); eGFR For Non-African Americans 53 (> 60)
[2020-05-25] MEDS: Insulin LISPRO 300 UNITS/3 ML VIAL SUBQ SCH ×2 (11:25→11:32)
[2020-05-25] MEDS: Sennosides/Docusate Sodium TABLET PO SCH ×2 (11:28→21:27)
[2020-05-25] MEDS: polyethylene glycoL 3350 17 GM POWD.PACK PO SCH (11:28)
[2020-05-25] MEDS: Levothyroxine 25 MCG TABLET PO SCH (11:29)
[2020-05-25] MEDS: *HR* Heparin 5,000 UNIT/ML VIAL SQ SCH ×3 (11:30→21:28)
[2020-05-25] MEDS: *HR* OxyCODONE/APAP 10/325 TABLET PO PRN ×2 (14:18→21:27)
[2020-05-25] MEDS: Nystatin POWDER 30 GM BOTTLE TP SCH ×3 (14:46→21:27)
[2020-05-26] MEDS: Ondansetron 4 MG/2 ML VIAL IVP PRN (01:04)
[2020-05-26 01:12] LABS: Basophils # 0.1 K/mcL (0.0-0.2); Basophils % 0.9 %; Eosinophils # 0.3 K/mcL (0.0-0.6); Eosinophils % 3.2 %; Hematocrit 39.5 % (35.3-44.9); Hemoglobin 13.1 g/dL (11.5-15.4); Immature Granulocytes % 0.3 % (0-4); Lymphocytes # 3.3 K/mcL (0.6-4.6); Lymphocytes % 36.9 %; Mean Corpuscular HGB Conc 33.2 g/dL (31.6-35.5); Mean Corpuscular Hemoglobin 30.3 pg (28.0-33.3); Mean Corpuscular Volume 91.2 fL (83.0-100.0); Mean Platelet Volume 9.9 fL (9.4-12.4); Monocytes # 0.6 K/mcL (0.0-1.3); Monocytes % 6.4 %; Neutrophils # 4.7 K/mcL (1.6-8.9); Platelet Count 163 K/mcL (140-400); Red Blood Count 4.33 M/mcL (3.82-4.97); Red Cell Distribution Width 12.9 % (11.5-14.5); Segmented Neutrophils % 52.3 %
[2020-05-26 02:03] LABS: Magnesium 1.6 mg/dL (1.6-2.6); Potassium 4.5 mEq/L (3.5-5.1)
[2020-05-26] MEDS: *HR* Heparin 5,000 UNIT/ML VIAL SQ SCH ×2 (05:37→15:30)
[2020-05-26] MEDS: Levothyroxine 25 MCG TABLET PO SCH (05:38)
[2020-05-26] MEDS: Sennosides/Docusate Sodium TABLET PO SCH (08:14)
[2020-05-26] MEDS: Nystatin POWDER 30 GM BOTTLE TP SCH ×2 (08:14→17:35)
[2020-05-26] MEDS: polyethylene glycoL 3350 17 GM POWD.PACK PO SCH (08:14)
[2020-05-26 11:33] VITALS: BP 114/58
[2020-05-26 14:36] LABS: Adenovirus Not Detected (Not Detect); Coronavirus 229E Not Detected (Not Detect); Coronavirus HKU1 Not Detected (Not Detect); Coronavirus NL63 Not Detected (Not Detect); Coronavirus OC43 Not Detected (Not Detect); Human Metapneumovirus Not Detected (Not Detect); Human Rhinovirus/Enterovirus Not Detected (Not Detect); Influenza A Subtype 2009 H1 Not Detected (Not Detect); SARS-CoV-2 Not Detected (Not Detect)
[2020-05-26 14:37] LABS: Bordetella Pertussis Not Detected (Not Detect); Chlamydophila pneumoniae Not Detected (Not Detect); Influenza B Not Detected (Not Detect); Mycoplasma pneumoniae Not Detected (Not Detect); Parainfluenza Virus 1 Not Detected (Not Detect); Parainfluenza Virus 2 Not Detected (Not Detect); Parainfluenza Virus 3 Not Detected (Not Detect); Parainfluenza Virus 4 Not Detected (Not Detect); Respiratory Syncytial Virus Not Detected (Not Detect)
== END 2020-05-26 18:00 | DRG 871 ==
LOC: ICNU 16:29 → EMEROOARM 16:29 → ICNU 20:36 → SUATTDRO 05-18 02:48 → 2NENU 05-19 17:23
PROVIDERS: ADMIT Internal Medicine; ATTEND Pharmacist

== ENCOUNTER 2020-06-18 00:48 | Inpatient (IN) ==
[2020-06-18] MEDS ORDERED: Isovue-370 500 ML BOTTLE IVP ONE (01:02)
[2020-06-18 01:24] LABS: ABG Base Excess -6 mEq/L (-2 to 3); ABG HCO3 20 mEq/L (21-27); ABG Oxygen Saturation 97 % (95-98); ABG PCO2 37 mmHg (35-45); ABG PH 7.33 pH Units (7.32-7.45); ABG PO2 99 mmHg (85-104); ABG TCO2 21 mEq/L (20-26)
[2020-06-18] MEDS: 0.9 % Sodium Chloride 1,000 ML IVC ONE ×2 (01:37→02:00)
[2020-06-18 01:42] LABS: Bacteria,Urine Moderate per hpf (None-Few); Bilirubin,Urine Negative (Negative); Blood,Urine Trace (Negative); Clarity,Urine Ex.Turbid (Clear); Color,Urine Yellow (Yellow); Glucose,Urine (UA) Normal (Normal); Ketones,Urine Negative (Negative); Leukocyte Esterase,Urine Large (Negative); Mucus,Urine Few per lpf (None-Few); Nitrite,Urine Negative (Negative); PH,Urine 5.5 pH Units (5.0-8.0); Protein,Urine Trace mg/dL (Neg-Trace); Specific Gravity,Urine 1.015 (1.010-1.025); Squamous Epithelial Cell,Urine Few per hpf (None-Few); Urobilinogen,Urine Normal (Normal); WBC,Urine TNTC per hpf (0-3)
[2020-06-18] MEDS ORDERED: Piperacillin/Tazobactam 3.375 GM in 0.9 % Sodium Chloride Mini Bag 100 ML IVPB ONE (01:49)
[2020-06-18] MEDS ORDERED: 0.9 % Sodium Chloride 1,000 ML IVC ONE (01:53)
[2020-06-18 02:28] LABS: Basophils # 0.1 K/mcL (0.0-0.2); Basophils % 0.4 %; Eosinophils # 0.2 K/mcL (0.0-0.6); Eosinophils % 1.3 %; Hematocrit 32.6 % (35.3-44.9); Hemoglobin 10.5 g/dL (11.5-15.4); Immature Granulocytes % 0.5 % (0-4); Lymphocytes # 2.4 K/mcL (0.6-4.6); Lymphocytes % 17.5 %; Mean Corpuscular HGB Conc 32.2 g/dL (31.6-35.5); Mean Corpuscular Hemoglobin 30.5 pg (28.0-33.3); Mean Corpuscular Volume 94.8 fL (83.0-100.0); Mean Platelet Volume 9.3 fL (9.4-12.4); Monocytes # 1.1 K/mcL (0.0-1.3); Monocytes % 7.9 %; Neutrophils # 9.8 K/mcL (1.6-8.9); Platelet Count 232 K/mcL (140-400); Red Blood Count 3.44 M/mcL (3.82-4.97); Red Cell Distribution Width 12.6 % (11.5-14.5); Segmented Neutrophils % 72.4 %; White Blood Count 13.5 K/mcL (4.3-11.1)
[2020-06-18 02:50] LABS: Alanine Aminotransferase 29 Units/L (7-52); Albumin/Globulin Ratio 0.8 (1.1-2.2); Alkaline Phosphatase 254 Units/L (34-104); Aspartate Amino Transferase 21 Units/L (13-39); BUN/Creatinine Ratio 27 (6-26); Bilirubin,Direct 0.3 mg/dL (0.0-0.2); Bilirubin,Indirect 0.2 mg/dL (0.0-1.0); Bilirubin,Total 0.5 mg/dL (0.3-1.0); Blood Urea Nitrogen 108 mg/dL (8-23); Calcium 10.9 mg/dL (8.6-10.3); Carbon Dioxide 18 mEq/L (23-29); Chloride 111 mEq/L (98-107); Glucose 124 mg/dL (70-105); Lipase 23 Units/L (11-82); Osmolality,Calculated 323 (280-300); Sodium 139 mEq/L (136-145); Troponin I < 0.03 ng/mL (< 0.04); eGFR For African Americans 13 (> 60); eGFR For Non-African Americans 11 (> 60)
[2020-06-18] MEDS ORDERED: Naloxone 0.4 MG/ML INJ IVP PRN (05:04)
[2020-06-18] MEDS ORDERED: Ondansetron 4 MG/2 ML VIAL IVP PRN (05:04)
[2020-06-18] MEDS ORDERED: Acetaminophen 325 MG TABLET PO PRN (05:30)
[2020-06-18] MEDS ORDERED: 0.9 % Sodium Chloride 1,000 ML IVC SCH ×2 (05:30)
[2020-06-18] MEDS ORDERED: Vancomycin (wt based) 1,000 MG VIAL IVPB ONE (10:06)
[2020-06-18] MEDS ORDERED: Vancomycin 2,000 MG/520 ML IV.SOLN IVPB ONE (10:20)
[2020-06-18] MEDS: Clindamycin 900 MG/50 ML 900 MG/50 ML IV.SOLN IVPB SCH ×2 (10:46→18:50)
[2020-06-18] MEDS ORDERED: DAPTOmycin 500 MG in 0.9 % Sodium Chloride 100 ML IVPB SCH (11:00)
[2020-06-18] MEDS ORDERED: 0.9 % Sodium Chloride 1,000 ML IV ONE (12:42)
[2020-06-18] MEDS: Piperacillin/Tazobactam 3.375 GM in 0.9 % Sodium Chloride Mini Bag 100 ML IVPB SCH (13:26)
[2020-06-18] MEDS: Sodium Bicarbonate 50 MEQ in 0.45 % Sodium Chloride 1,000 ML IVC SCH ×2 (15:09→23:05)
[2020-06-18 16:00] LABS: ABG Base Excess -7 mEq/L (-2 to 3); ABG HCO3 20 mEq/L (21-27); ABG Oxygen Saturation 97 % (95-98); ABG PCO2 44 mmHg (35-45); ABG PH 7.27 pH Units (7.32-7.45); ABG PO2 105 mmHg (85-104); ABG TCO2 21 mEq/L (20-26)
[2020-06-18] MEDS ORDERED: Ringers Solution, Lactated 1,000 ML ONE (16:09)
[2020-06-18] MEDS ORDERED: Ringers Solution, Lactated 1,000 ML IVC ONE (16:14)
[2020-06-18] MEDS ORDERED: *HR* Midazolam HCl 2 MG/2 ML VIAL IVP ONE (16:34)
[2020-06-18] MEDS ORDERED: Perflutren Lipid Microsphere 1.3 ML in 0.9 % Sodium Chloride 8.7 ML IVP PRN (17:40)
[2020-06-18 18:05] LABS: Protein/Creatinine Ratio,Urine 0.41 mg/mg (0.00-0.20)
[2020-06-18 19:08] LABS: Albumin 2.8 g/dL (3.5-5.7); Albumin/Globulin Ratio 0.7 (1.1-2.2); Bilirubin,Direct 0.3 mg/dL (0.0-0.2); Bilirubin,Indirect 0.2 mg/dL (0.0-1.0); Bilirubin,Total 0.5 mg/dL (0.3-1.0); Calcium 10.3 mg/dL (8.6-10.3); Globulin 3.8 g/dL (2.4-3.5); Potassium 4.5 mEq/L (3.5-5.1); Total Protein 6.6 g/dL (6.4-8.9)
[2020-06-18] MEDS: Gabapentin 300 MG CAPSULE PO SCH (20:45)
[2020-06-18] MEDS: Lactobacillus 1 EACH CAP.SPRINK PO SCH (20:45)
[2020-06-18] MEDS ORDERED: NON-FORMULARY MEDICATION 1 EACH EACH (Pravastatin Sodium [Pravachol] 40 MG Tablet) PO SCH (21:00)
[2020-06-19] MEDS: Piperacillin/Tazobactam 3.375 GM in 0.9 % Sodium Chloride Mini Bag 100 ML IVPB SCH ×3 (02:31→23:33)
[2020-06-19] MEDS: Clindamycin 900 MG/50 ML 900 MG/50 ML IV.SOLN IVPB SCH ×4 (02:31→23:39)
[2020-06-19 04:04] LABS: Basophils % 0.4 %; Eosinophils # 0.3 K/mcL (0.0-0.6); Eosinophils % 2.7 %; Hematocrit 31.5 % (35.3-44.9); Immature Granulocytes % 0.5 % (0-4); Lymphocytes # 1.7 K/mcL (0.6-4.6); Lymphocytes % 18.9 %; Mean Corpuscular HGB Conc 31.7 g/dL (31.6-35.5); Mean Corpuscular Hemoglobin 30.9 pg (28.0-33.3); Mean Corpuscular Volume 97.2 fL (83.0-100.0); Mean Platelet Volume 9.3 fL (9.4-12.4); Monocytes # 0.6 K/mcL (0.0-1.3); Neutrophils # 6.4 K/mcL (1.6-8.9); Platelet Count 220 K/mcL (140-400); Red Blood Count 3.24 M/mcL (3.82-4.97); Red Cell Distribution Width 12.6 % (11.5-14.5); Segmented Neutrophils % 70.5 %; White Blood Count 9.1 K/mcL (4.3-11.1)
[2020-06-19 04:41] LABS: BUN/Creatinine Ratio 40 (6-26); Blood Urea Nitrogen 80 mg/dL (8-23); Carbon Dioxide 19 mEq/L (23-29); Chloride 116 mEq/L (98-107); Glucose 101 mg/dL (70-105); Magnesium 1.6 mg/dL (1.6-2.6); Osmolality,Calculated 320 (280-300); Potassium 4.4 mEq/L (3.5-5.1); Sodium 143 mEq/L (136-145); Vancomycin,Random < 2 mcg/mL; eGFR For African Americans 30 (> 60); eGFR For Non-African Americans 24 (> 60)
[2020-06-19] MEDS ORDERED: Levothyroxine 25 MCG TABLET PO SCH (09:00)
[2020-06-19] MEDS ORDERED: Loratadine 10 MG TABLET PO SCH (09:00)
[2020-06-19] MEDS: Gabapentin 300 MG CAPSULE PO SCH ×3 (09:02→21:42)
[2020-06-19] MEDS: Lactobacillus 1 EACH CAP.SPRINK PO SCH ×3 (09:02→21:42)
[2020-06-19] MEDS: Norepinephrine 4 MG/254 ML IV.SOLN IVC SCH (12:17)
[2020-06-19] MEDS ORDERED: Vancomycin 2,000 MG/520 ML IV.SOLN IVPB SCH (13:00)
[2020-06-19] MEDS ORDERED: Naloxone 0.4 MG/ML INJ IVP PRN (18:24)
[2020-06-19] MEDS: *HR* Heparin 5,000 UNIT/ML VIAL SQ SCH (21:02)
[2020-06-19] MEDS: Ondansetron 4 MG/2 ML VIAL IVP PRN (21:12)
[2020-06-19] MEDS ORDERED: 0.9 % Sodium Chloride 500 ML IVC ONE ×2 (21:30→22:09)
[2020-06-19] MEDS ORDERED: 0.9 % Sodium Chloride 500 ML ONE ×2 (21:33→22:11)
[2020-06-19] MEDS ORDERED: Acetaminophen IV 500 MG/50 ML BAG IVPB ONE (21:52)
[2020-06-20 05:18] LABS: Basophils % 0.5 %; Eosinophils # 0.3 K/mcL (0.0-0.6); Eosinophils % 3.4 %; Hematocrit 33.7 % (35.3-44.9); Hemoglobin 10.8 g/dL (11.5-15.4); Immature Granulocytes % 0.7 % (0-4); Lymphocytes # 1.2 K/mcL (0.6-4.6); Lymphocytes % 14.5 %; Mean Corpuscular Hemoglobin 30.9 pg (28.0-33.3); Mean Corpuscular Volume 96.6 fL (83.0-100.0); Mean Platelet Volume 9.1 fL (9.4-12.4); Monocytes # 0.6 K/mcL (0.0-1.3); Platelet Count 223 K/mcL (140-400); Red Blood Count 3.49 M/mcL (3.82-4.97); Red Cell Distribution Width 12.8 % (11.5-14.5); Segmented Neutrophils % 73.9 %; White Blood Count 8.2 K/mcL (4.3-11.1)
[2020-06-20 05:22] LABS: VBG Ionized Calcium 1.48 mmol/L (1.15-1.35)
[2020-06-20] MEDS: *HR* Heparin 5,000 UNIT/ML VIAL SQ SCH ×3 (05:31→22:06)
[2020-06-20 05:39] LABS: Albumin 2.9 g/dL (3.5-5.7); Albumin/Globulin Ratio 0.7 (1.1-2.2); Bilirubin,Total 0.7 mg/dL (0.3-1.0); Calcium 10.6 mg/dL (8.6-10.3); Globulin 3.9 g/dL (2.4-3.5); Magnesium 1.5 mg/dL (1.6-2.6); Phosphorous 2.6 mg/dL (2.7-4.5); Potassium 4.2 mEq/L (3.5-5.1); Total Protein 6.8 g/dL (6.4-8.9)
[2020-06-20] MEDS: D5% in 0.45% NACL 1,000 ML IVC SCH (09:12)
[2020-06-20] MEDS: Piperacillin/Tazobactam 3.375 GM in 0.9 % Sodium Chloride Mini Bag 100 ML IVPB SCH ×2 (09:12→16:46)
[2020-06-20] MEDS: Gabapentin 300 MG CAPSULE PO SCH ×2 (09:12→22:06)
[2020-06-20] MEDS: Clindamycin 900 MG/50 ML 900 MG/50 ML IV.SOLN IVPB SCH ×2 (09:12→16:46)
[2020-06-20] MEDS: Loratadine 10 MG TABLET PO SCH (09:13)
[2020-06-20] MEDS: Lactobacillus 1 EACH CAP.SPRINK PO SCH ×2 (09:13→22:06)
[2020-06-20] MEDS: Ondansetron 4 MG/2 ML VIAL IVP PRN (09:32)
[2020-06-20] MEDS ORDERED: Vancomycin 2,000 MG/520 ML IV.SOLN IVPB SCH (13:00)
[2020-06-20] MEDS: Acetaminophen 325 MG TABLET PO PRN (13:56)
[2020-06-20 17:43] LABS: Calcium 10.4 mg/dL (8.6-10.3); Potassium 3.8 mEq/L (3.5-5.1)
[2020-06-20] MEDS: Norepinephrine 4 MG/254 ML IV.SOLN IVC SCH (22:51)
[2020-06-21] MEDS: Piperacillin/Tazobactam 3.375 GM in 0.9 % Sodium Chloride Mini Bag 100 ML IVPB SCH ×2 (00:57→08:06)
[2020-06-21] MEDS: Clindamycin 900 MG/50 ML 900 MG/50 ML IV.SOLN IVPB SCH ×2 (00:58→08:06)
[2020-06-21 03:30] LABS: Basophils % 0.4 %; Eosinophils # 0.3 K/mcL (0.0-0.6); Eosinophils % 4.7 %; Hemoglobin 10.4 g/dL (11.5-15.4); Immature Granulocytes % 0.4 % (0-4); Lymphocytes # 1.4 K/mcL (0.6-4.6); Lymphocytes % 21.1 %; Mean Corpuscular HGB Conc 32.5 g/dL (31.6-35.5); Mean Corpuscular Hemoglobin 31.3 pg (28.0-33.3); Mean Corpuscular Volume 96.4 fL (83.0-100.0); Mean Platelet Volume 9.4 fL (9.4-12.4); Monocytes # 0.5 K/mcL (0.0-1.3); Monocytes % 7.4 %; Neutrophils # 4.4 K/mcL (1.6-8.9); Platelet Count 221 K/mcL (140-400); Red Blood Count 3.32 M/mcL (3.82-4.97); Red Cell Distribution Width 12.8 % (11.5-14.5); White Blood Count 6.7 K/mcL (4.3-11.1)
[2020-06-21 03:54] LABS: % Iron Saturation 32 % (15-50); BUN/Creatinine Ratio 36 (6-26); Blood Urea Nitrogen 37 mg/dL (8-23); Calcium 10.5 mg/dL (8.6-10.3); Carbon Dioxide 21 mEq/L (23-29); Chloride 117 mEq/L (98-107); Glucose 112 mg/dL (70-105); Iron 48 mcg/dL (50-170); Magnesium 1.7 mg/dL (1.6-2.6); Osmolality,Calculated 309 (280-300); Potassium 3.9 mEq/L (3.5-5.1); Sodium 145 mEq/L (136-145); Transferrin 107 mg/dL (203-362); eGFR For African Americans > 60 (> 60); eGFR For Non-African Americans 53 (> 60)
[2020-06-21 04:05] LABS: Thyroid Stimulating Hormone 0.031 mcIU/mL (0.340-5.600); Triiodothyronine (T3) Free 2.46 pg/mL (2.50-3.90)
[2020-06-21 04:11] LABS: Ferritin 556 ng/mL (10-120)
[2020-06-21 04:19] LABS: Folate > 22.3 ng/mL (3.0-16.0); Vitamin B12 770 pg/mL (250-1100)
[2020-06-21] MEDS: *HR* Heparin 5,000 UNIT/ML VIAL SQ SCH ×3 (05:24→21:55)
[2020-06-21] MEDS: D5% in 0.45% NACL 1,000 ML IVC SCH (06:56)
[2020-06-21] MEDS: Gabapentin 300 MG CAPSULE PO SCH ×2 (08:07→19:56)
[2020-06-21] MEDS: Lactobacillus 1 EACH CAP.SPRINK PO SCH ×2 (08:07→19:56)
[2020-06-21] MEDS: Acetaminophen 325 MG TABLET PO PRN ×2 (08:07→16:38)
[2020-06-21] MEDS: Folic Acid 1 MG TABLET PO SCH (08:19)
[2020-06-21] MEDS: Loratadine 10 MG TABLET PO SCH (08:20)
[2020-06-21] MEDS ORDERED: Cholecalciferol (D-3) 1,000 UNIT (25MCG) TABLET PO SCH (09:00)
[2020-06-22] MEDS: *HR* Heparin 5,000 UNIT/ML VIAL SQ SCH ×3 (05:39→21:04)
[2020-06-22 07:24] LABS: Basophils % 0.4 %; Eosinophils # 0.4 K/mcL (0.0-0.6); Eosinophils % 5.7 %; Hematocrit 34.9 % (35.3-44.9); Hemoglobin 11.3 g/dL (11.5-15.4); Immature Granulocytes % 0.6 % (0-4); Lymphocytes # 1.8 K/mcL (0.6-4.6); Lymphocytes % 24.7 %; Mean Corpuscular HGB Conc 32.4 g/dL (31.6-35.5); Mean Corpuscular Hemoglobin 30.9 pg (28.0-33.3); Mean Corpuscular Volume 95.4 fL (83.0-100.0); Mean Platelet Volume 9.4 fL (9.4-12.4); Monocytes # 0.4 K/mcL (0.0-1.3); Monocytes % 5.8 %; Neutrophils # 4.6 K/mcL (1.6-8.9); Platelet Count 231 K/mcL (140-400); Red Blood Count 3.66 M/mcL (3.82-4.97); Red Cell Distribution Width 12.7 % (11.5-14.5); Segmented Neutrophils % 62.8 %; White Blood Count 7.3 K/mcL (4.3-11.1)
[2020-06-22 07:43] LABS: BUN/Creatinine Ratio 25 (6-26); Blood Urea Nitrogen 23 mg/dL (8-23); Calcium 10.4 mg/dL (8.6-10.3); Carbon Dioxide 24 mEq/L (23-29); Chloride 114 mEq/L (98-107); Glucose 122 mg/dL (70-105); Magnesium 1.4 mg/dL (1.6-2.6); Osmolality,Calculated 303 (280-300); Potassium 3.2 mEq/L (3.5-5.1); Sodium 144 mEq/L (136-145); eGFR For African Americans > 60 (> 60); eGFR For Non-African Americans > 60 (> 60)
[2020-06-22] MEDS ORDERED: Potassium Chloride 40 MEQ, Lidocaine 1% 2 ML in 0.9 % Sodium Chloride 500 ML IVPB ONE (09:02)
[2020-06-22] MEDS: Lactobacillus 1 EACH CAP.SPRINK PO SCH ×2 (09:34→21:05)
[2020-06-22] MEDS: Loratadine 10 MG TABLET PO SCH (09:34)
[2020-06-22] MEDS: Folic Acid 1 MG TABLET PO SCH (09:34)
[2020-06-22] MEDS: Gabapentin 300 MG CAPSULE PO SCH ×2 (09:34→21:05)
[2020-06-22] MEDS ORDERED: SODIUM CHLORIDE 0.9% IVPB ONE (19:41)
[2020-06-22] MEDS ORDERED: COLISTIN IVPB ONE (19:41)
[2020-06-23 01:50] LABS: Basophils % 0.4 %; Eosinophils # 0.4 K/mcL (0.0-0.6); Eosinophils % 4.7 %; Hematocrit 32.7 % (35.3-44.9); Hemoglobin 10.8 g/dL (11.5-15.4); Immature Granulocytes % 0.6 % (0-4); Lymphocytes # 2.4 K/mcL (0.6-4.6); Lymphocytes % 29.4 %; Mean Corpuscular Hemoglobin 31.3 pg (28.0-33.3); Mean Corpuscular Volume 94.8 fL (83.0-100.0); Mean Platelet Volume 9.3 fL (9.4-12.4); Monocytes # 0.5 K/mcL (0.0-1.3); Monocytes % 6.5 %; Neutrophils # 4.9 K/mcL (1.6-8.9); Platelet Count 217 K/mcL (140-400); Red Blood Count 3.45 M/mcL (3.82-4.97); Segmented Neutrophils % 58.4 %; White Blood Count 8.3 K/mcL (4.3-11.1)
[2020-06-23 02:10] LABS: BUN/Creatinine Ratio 24 (6-26); Blood Urea Nitrogen 18 mg/dL (8-23); Carbon Dioxide 21 mEq/L (23-29); Chloride 114 mEq/L (98-107); Glucose 86 mg/dL (70-105); Magnesium 1.5 mg/dL (1.6-2.6); Osmolality,Calculated 291 (280-300); Potassium 3.9 mEq/L (3.5-5.1); Sodium 140 mEq/L (136-145); eGFR For African Americans > 60 (> 60); eGFR For Non-African Americans > 60 (> 60)
[2020-06-23] MEDS: *HR* Heparin 5,000 UNIT/ML VIAL SQ SCH ×3 (05:14→21:22)
[2020-06-23] MEDS: Folic Acid 1 MG TABLET PO SCH (07:24)
[2020-06-23] MEDS: Gabapentin 300 MG CAPSULE PO SCH ×2 (07:24→21:17)
[2020-06-23] MEDS: Lactobacillus 1 EACH CAP.SPRINK PO SCH ×2 (07:24→21:18)
[2020-06-23] MEDS: Loratadine 10 MG TABLET PO SCH (07:24)
[2020-06-23] MEDS ORDERED: COLISTIN IVPB SCH (09:00)
[2020-06-23] MEDS ORDERED: SODIUM CHLORIDE 0.9% IVPB SCH (09:00)
[2020-06-23] MEDS ORDERED: Acetaminophen IV 1,000 MG/100 ML BAG IVPB ONE (09:28)
[2020-06-23] MEDS: Colistin (Colistimethate) 150 MG in 0.9 % Sodium Chloride 50 ML IVPB SCH (21:56)
[2020-06-24 05:07] LABS: Basophils # 0.1 K/mcL (0.0-0.2); Basophils % 0.5 %; Eosinophils # 0.4 K/mcL (0.0-0.6); Eosinophils % 3.9 %; Hematocrit 34.3 % (35.3-44.9); Hemoglobin 11.3 g/dL (11.5-15.4); Immature Granulocytes % 0.6 % (0-4); Lymphocytes # 2.2 K/mcL (0.6-4.6); Lymphocytes % 21.6 %; Mean Corpuscular HGB Conc 32.9 g/dL (31.6-35.5); Mean Corpuscular Hemoglobin 30.7 pg (28.0-33.3); Mean Corpuscular Volume 93.2 fL (83.0-100.0); Mean Platelet Volume 9.4 fL (9.4-12.4); Monocytes # 0.8 K/mcL (0.0-1.3); Monocytes % 8.2 %; Neutrophils # 6.7 K/mcL (1.6-8.9); Platelet Count 217 K/mcL (140-400); Red Blood Count 3.68 M/mcL (3.82-4.97); Red Cell Distribution Width 12.8 % (11.5-14.5); Segmented Neutrophils % 65.2 %; White Blood Count 10.3 K/mcL (4.3-11.1)
[2020-06-24] MEDS: *HR* Heparin 5,000 UNIT/ML VIAL SQ SCH ×3 (05:11→21:43)
[2020-06-24 05:26] LABS: BUN/Creatinine Ratio 21 (6-26); Blood Urea Nitrogen 16 mg/dL (8-23); Carbon Dioxide 21 mEq/L (23-29); Chloride 111 mEq/L (98-107); Glucose 101 mg/dL (70-105); Magnesium 1.4 mg/dL (1.6-2.6); Osmolality,Calculated 289 (280-300); Potassium 3.6 mEq/L (3.5-5.1); Sodium 139 mEq/L (136-145); eGFR For African Americans > 60 (> 60); eGFR For Non-African Americans > 60 (> 60)
[2020-06-24] MEDS: Folic Acid 1 MG TABLET PO SCH (08:35)
[2020-06-24] MEDS: Loratadine 10 MG TABLET PO SCH (08:35)
[2020-06-24] MEDS: Lactobacillus 1 EACH CAP.SPRINK PO SCH ×2 (08:35→21:43)
[2020-06-24] MEDS: Gabapentin 300 MG CAPSULE PO SCH ×2 (08:35→21:43)
[2020-06-24] MEDS: Colistin (Colistimethate) 150 MG in 0.9 % Sodium Chloride 50 ML IVPB SCH ×2 (13:07→21:49)
[2020-06-25] MEDS: *HR* Heparin 5,000 UNIT/ML VIAL SQ SCH ×3 (05:41→21:22)
[2020-06-25] MEDS: Lactobacillus 1 EACH CAP.SPRINK PO SCH ×2 (08:35→21:20)
[2020-06-25] MEDS: Gabapentin 300 MG CAPSULE PO SCH ×2 (08:35→21:20)
[2020-06-25] MEDS: Loratadine 10 MG TABLET PO SCH (08:35)
[2020-06-25] MEDS: Folic Acid 1 MG TABLET PO SCH (08:35)
[2020-06-25] MEDS: Insulin LISPRO 300 UNITS/3 ML VIAL SUBQ SCH ×3 (08:45→16:34)
[2020-06-25] MEDS: Colistin (Colistimethate) 150 MG in 0.9 % Sodium Chloride 50 ML IVPB SCH ×2 (08:46→21:21)
[2020-06-25 10:46] LABS: Mean Corpuscular HGB Conc 33.6 g/dL (31.6-35.5); Mean Corpuscular Hemoglobin 30.5 pg (28.0-33.3); Mean Corpuscular Volume 90.7 fL (83.0-100.0); Segmented Neutrophils % 70.7 %
[2020-06-25 10:48] LABS: Basophils # 0.1 K/mcL (0.0-0.2); Basophils % 0.4 %; Eosinophils # 0.3 K/mcL (0.0-0.6); Eosinophils % 2.5 %; Hematocrit 33.3 % (35.3-44.9); Hemoglobin 11.2 g/dL (11.5-15.4); Immature Granulocytes % 0.8 % (0-4); Immature Platelets 2.1 % (1.1-6.1); Lymphocytes # 2.5 K/mcL (0.6-4.6); Mean Platelet Volume 10.6 fL (9.4-12.4); Monocytes # 0.9 K/mcL (0.0-1.3); Monocytes % 6.6 %; Platelet Count 143 K/mcL (140-400); Red Blood Count 3.67 M/mcL (3.82-4.97); White Blood Count 13.1 K/mcL (4.3-11.1)
[2020-06-25 11:12] LABS: Neutrophils # 9.3 K/mcL (1.6-8.9)
[2020-06-25 11:13] LABS: Platelet Estimate Normal (Normal)
[2020-06-25 14:01] LABS: Albumin 2.7 g/dL (3.5-5.7); Albumin/Globulin Ratio 0.8 (1.1-2.2); Bilirubin,Total 0.6 mg/dL (0.3-1.0); Calcium 10.4 mg/dL (8.6-10.3); Globulin 3.6 g/dL (2.4-3.5); Magnesium 1.5 mg/dL (1.6-2.6); Phosphorous 2.9 mg/dL (2.7-4.5); Potassium 3.8 mEq/L (3.5-5.1); Total Protein 6.3 g/dL (6.4-8.9)
[2020-06-25] MEDS: Ringers Solution, Lactated 1,000 ML IVC SCH (21:21)
[2020-06-26] MEDS: *HR* Heparin 5,000 UNIT/ML VIAL SQ SCH ×3 (04:53→21:45)
[2020-06-26 05:15] LABS: Basophils # 0.1 K/mcL (0.0-0.2); Basophils % 0.5 %; Eosinophils # 0.3 K/mcL (0.0-0.6); Eosinophils % 2.9 %; Hematocrit 32.3 % (35.3-44.9); Hemoglobin 10.7 g/dL (11.5-15.4); Immature Granulocytes % 0.6 % (0-4); Lymphocytes # 2.4 K/mcL (0.6-4.6); Lymphocytes % 22.3 %; Mean Corpuscular HGB Conc 33.1 g/dL (31.6-35.5); Mean Corpuscular Hemoglobin 30.7 pg (28.0-33.3); Mean Corpuscular Volume 92.8 fL (83.0-100.0); Mean Platelet Volume 9.6 fL (9.4-12.4); Monocytes # 0.7 K/mcL (0.0-1.3); Monocytes % 6.5 %; Neutrophils # 7.3 K/mcL (1.6-8.9); Platelet Count 195 K/mcL (140-400); Red Blood Count 3.48 M/mcL (3.82-4.97); Red Cell Distribution Width 13.1 % (11.5-14.5); Segmented Neutrophils % 67.2 %; White Blood Count 10.9 K/mcL (4.3-11.1)
[2020-06-26 05:32] LABS: Albumin 2.7 g/dL (3.5-5.7); Albumin/Globulin Ratio 0.7 (1.1-2.2); Bilirubin,Total 0.8 mg/dL (0.3-1.0); Calcium 10.8 mg/dL (8.6-10.3); Globulin 3.8 g/dL (2.4-3.5); Magnesium 1.6 mg/dL (1.6-2.6); Phosphorous 3.4 mg/dL (2.7-4.5); Total Protein 6.5 g/dL (6.4-8.9)
[2020-06-26 05:36] LABS: Estimated Average Glucose 105 mg/dl; Hemoglobin A1C 5.3 %
[2020-06-26] MEDS: Ringers Solution, Lactated 1,000 ML IVC SCH (06:37)
[2020-06-26] MEDS: Insulin LISPRO 300 UNITS/3 ML VIAL SUBQ SCH ×3 (07:52→19:07)
[2020-06-26] MEDS: Loratadine 10 MG TABLET PO SCH (09:45)
[2020-06-26] MEDS: Gabapentin 300 MG CAPSULE PO SCH ×2 (09:45→19:52)
[2020-06-26] MEDS: Lactobacillus 1 EACH CAP.SPRINK PO SCH ×2 (09:45→19:52)
[2020-06-26] MEDS: Folic Acid 1 MG TABLET PO SCH (09:47)
[2020-06-26] MEDS: Colistin (Colistimethate) 150 MG in 0.9 % Sodium Chloride 50 ML IVPB SCH (09:53)
[2020-06-26] MEDS ORDERED: Colistin (Colistimethate) 100 MG in 0.9 % Sodium Chloride 50 ML IVPB SCH ×2 (10:26→22:00)
[2020-06-26] MEDS: Thiamine (B-1) 100 MG in 0.9 % Sodium Chloride 50 ML IVPB SCH (13:12)
[2020-06-26] MEDS ORDERED: D5% in Water 1,000 ML IVC PRN (16:28)
[2020-06-26] MEDS ORDERED: *HR* Dextrose 50 % in Water (Vial) 50 ML VIAL IVP PRN (16:28)
[2020-06-26] MEDS ORDERED: Dextrose Gel 15 GM/37.5 ML TUBE PO PRN ×2 (16:28)
[2020-06-27] MEDS: *HR* Heparin 5,000 UNIT/ML VIAL SQ SCH ×3 (06:01→21:33)
[2020-06-27] MEDS: Insulin LISPRO 300 UNITS/3 ML VIAL SUBQ SCH ×3 (06:54→16:53)
[2020-06-27 07:51] LABS: Basophils % 0.3 %; Eosinophils # 0.3 K/mcL (0.0-0.6); Eosinophils % 3.4 %; Hematocrit 31.1 % (35.3-44.9); Hemoglobin 10.1 g/dL (11.5-15.4); Immature Granulocytes % 0.3 % (0-4); Lymphocytes # 2.5 K/mcL (0.6-4.6); Lymphocytes % 24.9 %; Mean Corpuscular HGB Conc 32.5 g/dL (31.6-35.5); Mean Corpuscular Hemoglobin 30.5 pg (28.0-33.3); Mean Platelet Volume 9.6 fL (9.4-12.4); Monocytes # 0.8 K/mcL (0.0-1.3); Monocytes % 7.8 %; Neutrophils # 6.3 K/mcL (1.6-8.9); Platelet Count 195 K/mcL (140-400); Red Blood Count 3.31 M/mcL (3.82-4.97); Red Cell Distribution Width 13.1 % (11.5-14.5); Segmented Neutrophils % 63.3 %; White Blood Count 9.9 K/mcL (4.3-11.1)
[2020-06-27 08:09] LABS: Albumin 2.8 g/dL (3.5-5.7); Albumin/Globulin Ratio 0.7 (1.1-2.2); Bilirubin,Total 0.9 mg/dL (0.3-1.0); Calcium 10.9 mg/dL (8.6-10.3); Globulin 3.9 g/dL (2.4-3.5); Magnesium 1.4 mg/dL (1.6-2.6); Potassium 3.9 mEq/L (3.5-5.1); Total Protein 6.7 g/dL (6.4-8.9)
[2020-06-27] MEDS: Lactobacillus 1 EACH CAP.SPRINK PO SCH ×2 (09:01→21:32)
[2020-06-27] MEDS: Loratadine 10 MG TABLET PO SCH (09:01)
[2020-06-27] MEDS: Folic Acid 1 MG TABLET PO SCH (09:01)
[2020-06-27] MEDS: Gabapentin 300 MG CAPSULE PO SCH (09:01)
[2020-06-27] MEDS: Thiamine (B-1) 100 MG in 0.9 % Sodium Chloride 50 ML IVPB SCH (09:01)
[2020-06-27] MEDS: Acetaminophen 325 MG TABLET PO PRN (09:13)
[2020-06-27] MEDS: Ringers Solution, Lactated 1,000 ML IVC SCH (16:56)
[2020-06-27] MEDS: QUEtiapine Fumarate 25 MG TABLET PO PRN (21:32)
[2020-06-27] MEDS: Chlorhexidine Rinse 15 ML MOUTHWASH MM SCH (21:33)
[2020-06-28 04:27] LABS: Hematocrit 31.3 % (35.3-44.9); Hemoglobin 10.3 g/dL (11.5-15.4); Mean Corpuscular HGB Conc 32.9 g/dL (31.6-35.5); Mean Corpuscular Hemoglobin 30.5 pg (28.0-33.3); Mean Corpuscular Volume 92.6 fL (83.0-100.0); Mean Platelet Volume 9.5 fL (9.4-12.4); Platelet Count 206 K/mcL (140-400); Red Blood Count 3.38 M/mcL (3.82-4.97); Red Cell Distribution Width 13.1 % (11.5-14.5); White Blood Count 9.2 K/mcL (4.3-11.1)
[2020-06-28 04:46] LABS: Calcium 11.2 mg/dL (8.6-10.3); Magnesium 2.1 mg/dL (1.6-2.6); Phosphorous 4.6 mg/dL (2.7-4.5); Potassium 3.9 mEq/L (3.5-5.1)
[2020-06-28] MEDS: Ringers Solution, Lactated 1,000 ML IVC SCH (05:05)
[2020-06-28] MEDS: *HR* Heparin 5,000 UNIT/ML VIAL SQ SCH ×3 (05:59→20:40)
[2020-06-28] MEDS: Insulin LISPRO 300 UNITS/3 ML VIAL SUBQ SCH ×3 (09:20→17:46)
[2020-06-28] MEDS: Lactobacillus 1 EACH CAP.SPRINK PO SCH ×2 (09:21→20:40)
[2020-06-28] MEDS: Folic Acid 1 MG TABLET PO SCH (09:21)
[2020-06-28] MEDS: Thiamine (B-1) 100 MG in 0.9 % Sodium Chloride 50 ML IVPB SCH (09:21)
[2020-06-28] MEDS: Loratadine 10 MG TABLET PO SCH (09:21)
[2020-06-28] MEDS: Chlorhexidine Rinse 15 ML MOUTHWASH MM SCH ×2 (09:29→20:42)
[2020-06-28] MEDS ORDERED: Ringers Solution, Lactated 1,000 ML IVC SCH (17:00)
[2020-06-28] MEDS: Acetaminophen 325 MG TABLET PO PRN (17:40)
[2020-06-28] MEDS: QUEtiapine Fumarate 25 MG TABLET PO PRN (20:40)
[2020-06-29 05:44] LABS: Hematocrit 31.3 % (35.3-44.9); Hemoglobin 10.4 g/dL (11.5-15.4); Mean Corpuscular HGB Conc 33.2 g/dL (31.6-35.5); Mean Corpuscular Hemoglobin 31.2 pg (28.0-33.3); Mean Platelet Volume 9.5 fL (9.4-12.4); Platelet Count 217 K/mcL (140-400); Red Blood Count 3.33 M/mcL (3.82-4.97)
[2020-06-29 07:32] LABS: Calcium 11.4 mg/dL (8.6-10.3); Magnesium 1.7 mg/dL (1.6-2.6); Phosphorous 4.8 mg/dL (2.7-4.5)
[2020-06-29] MEDS: *HR* Heparin 5,000 UNIT/ML VIAL SQ SCH ×3 (08:09→20:11)
[2020-06-29] MEDS: Chlorhexidine Rinse 15 ML MOUTHWASH MM SCH ×2 (10:43→20:13)
[2020-06-29] MEDS: Insulin LISPRO 300 UNITS/3 ML VIAL SUBQ SCH ×3 (10:43→17:46)
[2020-06-29] MEDS: Loratadine 10 MG TABLET PO SCH (11:15)
[2020-06-29] MEDS: Lactobacillus 1 EACH CAP.SPRINK PO SCH ×2 (11:15→20:11)
[2020-06-29] MEDS: Folic Acid 1 MG TABLET PO SCH (11:15)
[2020-06-29] MEDS: Thiamine (B-1) 100 MG in 0.9 % Sodium Chloride 50 ML IVPB SCH (11:15)
[2020-06-30 05:20] LABS: Hematocrit 31.2 % (35.3-44.9); Hemoglobin 10.3 g/dL (11.5-15.4); Mean Corpuscular Hemoglobin 30.7 pg (28.0-33.3); Mean Corpuscular Volume 92.9 fL (83.0-100.0); Mean Platelet Volume 9.3 fL (9.4-12.4); Platelet Count 244 K/mcL (140-400); Red Blood Count 3.36 M/mcL (3.82-4.97); Red Cell Distribution Width 13.2 % (11.5-14.5); White Blood Count 11.2 K/mcL (4.3-11.1)
[2020-06-30] MEDS: *HR* Heparin 5,000 UNIT/ML VIAL SQ SCH ×2 (05:46→16:24)
[2020-06-30 05:51] LABS: Calcium 11.4 mg/dL (8.6-10.3); Magnesium 1.7 mg/dL (1.6-2.6); Phosphorous 4.6 mg/dL (2.7-4.5); Potassium 4.1 mEq/L (3.5-5.1)
[2020-06-30] MEDS: Insulin LISPRO 300 UNITS/3 ML VIAL SUBQ SCH ×3 (09:35→18:34)
[2020-06-30] MEDS: Chlorhexidine Rinse 15 ML MOUTHWASH MM SCH (09:50)
[2020-06-30] MEDS: Folic Acid 1 MG TABLET PO SCH (09:50)
[2020-06-30] MEDS: Lactobacillus 1 EACH CAP.SPRINK PO SCH (09:50)
[2020-06-30] MEDS: Loratadine 10 MG TABLET PO SCH (09:50)
[2020-06-30] MEDS: Thiamine (B-1) 100 MG in 0.9 % Sodium Chloride 50 ML IVPB SCH (10:06)
[2020-06-30 10:24] VITALS: BP 153/70
[2020-06-30] MEDS ORDERED: Nystatin POWDER 30 GM BOTTLE TP SCH (11:45)
[2020-06-30 16:07] LABS: Adenovirus Not Detected (Not Detect); Coronavirus 229E Not Detected (Not Detect); Coronavirus HKU1 Not Detected (Not Detect); Coronavirus NL63 Not Detected (Not Detect); Coronavirus OC43 Not Detected (Not Detect); Human Metapneumovirus Not Detected (Not Detect); Human Rhinovirus/Enterovirus Not Detected (Not Detect); Influenza A Subtype 2009 H1 Not Detected (Not Detect); Influenza B Not Detected (Not Detect); Parainfluenza Virus 1 Not Detected (Not Detect); Parainfluenza Virus 2 Not Detected (Not Detect); Parainfluenza Virus 3 Not Detected (Not Detect); SARS-CoV-2 Not Detected (Not Detect)
[2020-06-30 16:08] LABS: Bordetella Pertussis Not Detected (Not Detect); Chlamydophila pneumoniae Not Detected (Not Detect); Mycoplasma pneumoniae Not Detected (Not Detect); Parainfluenza Virus 4 Not Detected (Not Detect); Respiratory Syncytial Virus Not Detected (Not Detect)
== END 2020-06-30 19:35 | DRG 871 ==
LOC: 2NENU 00:48 → EMEROOARM 00:48 → SUATTDRO 04:33 → 2NENU 05:15 → SUATTDRO 15:24 → ICNU 19:47 → 2ANU 06-19 20:32 → 2NNU 06-20 04:34 → 3ANU 06-23 19:20
PROVIDERS: ADMIT Student in an Organized Health Care Education/Training Program; ATTEND Internal Medicine